=== PATIENT | male | born 1950 | race Caucasian/White ===

== ENCOUNTER → 2018-08-08 11:00 | Outpatient (CLI) | payer MEDICARE, OTHER, SELFPAY ==
--- NOTE | 2018-08-08 | DI.US.S_ITS ---
PROCEDURE: US ABD AORTA ANEURYSM SCREEN INDICATIONS: SCREENING TECHNIQUE: Real time scanning was performed of the aorta and iliac arteries, with image documentation. COMPARISON: None. FINDINGS: Aorta: Proximal aorta is obscured by overlying bowel gas. Mid-aorta measures 1.6 cm. Distal aortic diameter is 1.5 cm. Iliac arteries: Right common iliac artery measures 0.9 cm. Left common iliac artery measures 0.9 cm. IMPRESSION: No abdominal aortic aneurysm identified but the proximal abdominal aorta is obscured by overlying bowel gas. Dictated by: Ayaka Riley M.D. on 08/08/2018 at 13:09 Approved by: Ayaka Riley M.D. on 08/08/2018 at 13:10
== END ==
PROVIDERS: Family Provider Internal Medicine; PCP Internal Medicine; Visit Provider Internal Medicine
DX: Z13.6 Encounter for screening for cardiovascular disorders (principal)
CPT/HCPCS: 76706

== ENCOUNTER → 2020-12-03 11:16 | Outpatient (CLI) | payer MEDICARE, OTHER, SELFPAY ==
--- NOTE | 2020-12-03 | DI.RAD.S_ITS ---
PROCEDURE: XR HIP W PEL IF DONE BILAT 2V INDICATIONS: Primary generalized (osteo)arthritis TECHNIQUE: AP pelvis with lateral view(s) of the both hip(s). COMPARISON: , CT, ABDOMEN/PELVIS WITH CONTRAST, 05/05/2011, 10:25. FINDINGS: Bones: No fractures or dislocations. Prominence at the bilateral femoral necks are concerning for cam lesions. Moderate bilateral hip DJD. Mild heterotopic calcification adjacent to the right hip which is new compared to CT from 28/03. Pelvic ring appears intact. No suspicious bony lesions. Degenerative change in the lumbar spine. Soft tissues: The visualized bowel gas pattern is normal. No suspicious soft tissue calcifications. Vascular calcifications. IMPRESSION: Moderate bilateral hip DJD. Concern for bilateral femoral neck cam lesions. This could be seen in acetabular impingement syndrome. Dictated by: Armani Alvarado M.D. on 12/03/2020 at 12:28 Approved by: Armani Alvarado M.D. on 12/03/2020 at 12:32
== END ==
PROVIDERS: Family Provider Internal Medicine; PCP Internal Medicine; Referring Provider Internal Medicine; Visit Provider Internal Medicine
DX: M16.0 Bilateral primary osteoarthritis of hip (principal)
CPT/HCPCS: 73521

== ENCOUNTER → 2021-01-29 14:38 | Outpatient (CLI) | payer MEDICARE, OTHER, SELFPAY ==
--- NOTE | 2021-01-29 | DI.RAD.S_ITS ---
PROCEDURE: XR CHEST 2V INDICATIONS: chest pain TECHNIQUE: 2 views of the chest were acquired. COMPARISON: [facility], , CHEST 2 VIEW, 10/09/2008, 16:57. FINDINGS: Surgical changes and devices: Dual chamber left cardiac pacer present and in expected position. Lungs and pleura: 3.3 cm rounded masslike opacity seen on the frontal view projected over the mid left lung just inferior to the level of the pulse generator. No pleural effusions or pneumothorax. Mediastinum: Mediastinal contours are normal. Heart size is normal. Bones and chest wall: No suspicious bony abnormalities. Soft tissues appear unremarkable. IMPRESSION: Focal airspace opacity within the mid left lung with masslike appearance. Chest CT scan is recommended for further assessment to exclude underlying neoplasm. Comment: Referring clinician's office will be called by our office with significant results requiring follow-up. This was set up at the time of final review, on 01/29/2021 at 1727 hours Dictated by: Aleksander Garcias [facility] Interpreted: Kendall Melendrez MD on 01/29/2021 at 14:55 Transcribed by: OFELIA on 01/29/2021 at 14:57 Approved by: Kendall Melendrez M.D. on 01/29/2021 at 17:27
== END ==
PROVIDERS: Family Provider Internal Medicine; PCP Internal Medicine; Referring Provider Internal Medicine; Visit Provider Internal Medicine
DX: R07.89 Other chest pain (principal)
CPT/HCPCS: 71046

== ENCOUNTER → 2021-02-10 14:25 | Outpatient (CLI) | payer MEDICARE, OTHER, SELFPAY ==
--- NOTE | 2021-02-10 14:32 | DI.CT.S_ITS ---
PROCEDURE: CT CHEST W CON INDICATIONS: LUNG MASS TECHNIQUE: After the administration of intravenous contrast, 5 mm thick sections acquired from the pulmonary apices to the posterior costophrenic angles. 1 mm axial lung, 5 mm thick coronal and sagittal reformats and 7 mm axial MIP were acquired. For radiation dose reduction, the following was used: automated exposure control, adjustment of mA and/or kV according to patient size. COMPARISON: [facility], CR, XR CHEST 2V, 01/29/2021, 14:40. FINDINGS: Image quality: Excellent. Lungs and pleura: A solid mildly spiculated mass is seen in the superior segment of the left lower lobe abutting the major fissure in the pleura, measuring 3.2 x 2.3 cm on axial images by 2.4 cm craniocaudal (134/3, 32/6). Two small 3-4 mm nodules are seen in the superior segment of the left lower lobe more superiorly (121/3). A 3 mm calcified granuloma is seen at the left lung base (267/3). No acute air space opacities. No pleural effusions or pneumothorax. Central and peripheral airways are patent and normal in caliber. Mediastinum: In AP window lymph node measures 2.1 cm in short axis diameter (28/2). No significantly enlarged contralateral mediastinal lymph nodes. Heart size is normal. No pericardial effusion. Coronary artery calcifications are present. Thoracic aorta and central pulmonary arteries are normal in size. Esophagus is normal in caliber. No hiatal hernia. Bones and chest wall: No axillary or supraclavicular adenopathy by size criteria. A cardiac pacemaker is seen with pulse generator in the left chest. No suspicious bony lesions. Degenerative changes are seen in the spine. No vertebral body compression fractures. A 1.1 x 0.8 cm hypoattenuating nodule is seen in the lower right thyroid lobe/isthmus. Abdomen: Visualized upper abdominal solid organs appear normal. Upper abdominal bowel loops are normal in caliber. IMPRESSION: 1. Left lower lobe spiculated pulmonary mass measuring 3.2 x 2.3 cm corresponds to the opacity on chest radiographs 01/29/2021, suspicious for a primary pulmonary malignancy. This lesion would likely be amenable to percutaneous biopsy if indicated clinically. 2. Enlarged mediastinal AP window lymph node is suspicious for jose antonio metastatic disease. No contralateral lymphadenopathy. 3. Two small 3-4 mm nodules are also seen in the superior segment of the left lower lobe that may represent a satellite lesions or separate small nonspecific pulmonary nodules. 4. Hypoattenuating 1.1 cm nodule in the lower right thyroid. Recommend thyroid ultrasound for further evaluation. Dictated by: Sina Aquino M.D. on 02/10/2021 at 16:18 Approved by: Sina Aquino M.D. on 02/10/2021 at 16:31
--- NOTE | 2021-02-27 | PATH_ITS ---
[facility] Accession Number: [id number] . 01 Material submitted: . lung - LUNG . 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 MRV 03/05/2021 1613 Local . 02 Comment: As part of routine dairy quality assurance officer, Dr. Darnell has reviewed this case and agrees with the diagnosis of small cell carcinoma. The preliminary findings of malignancy, favor small cell carcinoma, were reported to Dr. Massey via biomedical engineering internship Valerie by Dr. Hope on 03/03/2021 at 4:00 p.m. . 02 Electronically signed: . Jeet Hope MD, PhD, Pathologist NPI- [id number] . 01 Gross description: . Received in formalin, labeled with the patient's name and lung, are four brice-castro soft tissue cores; 1.3-1.7 cm in length, 0.1 cm in diameter; entirely submitted. . SUMMARY OF SECTIONS: A1-A2: Two cores each. ([id number]) /[facility] 03/01/2021 1239 Local . 02 Microscopic: . Sections are of fibrotic lung parenchyma infiltrated by a proliferation of epithelioid cells in an irregular nested growth pattern. The neoplastic cells have scant cytoplasm and prominent powdery chromatin. In order to further classify the neoplastic cells, a panel of immunohistochemical stains is performed (each with an appropriately positive control). The neoplastic cells are positive for GIGI (pancytokeratin), TTF1 (variable), napsin (rare), chromogranin (variable) and synaptophysin immunoreactivity. The neoplastic cells are negative for p40 or cytokeratin 5/6 immunoreactivity, excluding squamous neoplasm. The overall morphology and immunoprofile are consistent with a small cell neuroendocrine carcinoma. . * This test was developed and its performance characteristics determined by [facility]. It has not been cleared or approved by the U.S. Food and Drug Administration. The FDA has determined that such clearance or approval is not necessary. This test is used for clinical purposes. It should not be regarded as investigational or for research. . 02 Pathologist provided ICD-10: C34.32 . 02 CPT . 936380, Z12393, E43805 Performed at: 01 [facility] [address] [address], [place], [place] [id number] MD Jam Love MD Phone: [phone] Performed at: 02 [facility] [address] [place], [place] [id number] MD Kiah Darnell MD Phone: [phone]
== END ==
PROVIDERS: Family Provider Internal Medicine; PCP Internal Medicine; Referring Provider Internal Medicine; Visit Provider Internal Medicine
DX: R91.8 Other nonspecific abnormal finding of lung field (principal); R59.0 Localized enlarged lymph nodes; E04.1 Nontoxic single thyroid nodule; Z95.0 Presence of cardiac pacemaker
CPT/HCPCS: 71260; Q9967

== ENCOUNTER → 2021-02-27 06:47 | Outpatient (CLI) | payer MEDICARE, OTHER, SELFPAY ==
[2021-02-27] VITALS (16 sets, daily range): BP systolic 141–171; BP diastolic 68–87; PULSE 65–84; RESP 11–22; TEMP 36.2–36.3; O2SAT 95–99; BMI 27.3
--- NOTE | 2021-02-27 | DI.RAD.S_ITS ---
PROCEDURE: XR CHEST 1V INDICATIONS: POST OP LUNG BIOPSY TECHNIQUE: One view of the chest was acquired. COMPARISON: [facility], CR, XR CHEST 2V, 01/29/2021, 14:40. FINDINGS: Surgical changes and devices: Left-sided cardiac pacer device is in place. Lungs and pleura: Lungs are clear. No pleural effusions. Stable 3.0 cm left mid lung zone mass. Very small left apical pneumothorax. Mediastinum: Mediastinal contours appear normal. Heart size is normal. Bones and chest wall: No suspicious bony lesions. Overlying soft tissues appear unremarkable. IMPRESSION: Very small left apical pneumothorax status post lung biopsy. Recommend short interval follow-up chest radiograph in approximately 2 hours. Stable appearance of left mid lung zone mass. Dictated by: Blanco Gutierrez M.D. on 02/27/2021 at 9:25 Approved by: Blanco Gutierrez M.D. on 02/27/2021 at 9:28
[2021-02-27 07:32] LABS: Add Manual Diff / Slide Review NO; Basophils Absolute Auto 100 /uL (0-100); Basophils Percent Auto 0.7 % (0-2); Eosinophils Absolute Auto 100 /uL (0-450); Eosinophils Percent Auto 1.7 % (2-4); Lymphocytes Absolute Auto 3100 /uL (1100-4500); Lymphocytes Percent Auto 36.1 % (25-40); Mean Corpuscular HGB Conc 34.3 % (30-36); Mean Corpuscular Hemoglobin 32.6 PG (26-34); Mean Corpuscular Volume 95.1 fL (80-100); Monocytes Absolute Auto 800 /uL (0-900); Monocytes Percent Auto 9.7 % (3-14); Neutrophils Absolute Auto 4400 /uL (1500-7000); Neutrophils Percent Auto 51.8 % (50-75); Platelet Count 281 X10^3/uL (150-400); Red Blood Cell Count 4.31 X10^6/uL (4.5-5.9); Red Cell Distribution Width 13.8 % (11.6-14.8); White Blood Cell Count 8.4 X10^3/uL (4.5-11.0)
[2021-02-27 07:41] LABS: INR 0.9 (0.9-1.3); Prothrombin Time 10.3 SECONDS (10.1-12.7)
[2021-02-27 07:46] LABS: COVID19 -Nasal RAPID Negative (Negative)
[2021-02-27] MEDS: fentaNYL 100 MCG/2 ML INJ 50 MCG IV (08:40)
[2021-02-27] MEDS: MIDAZOLAM 5 MG/5 ML VIAL 2 MG IV (08:42)
--- NOTE | 2021-02-27 09:30 | DI.CT.S_ITS ---
PROCEDURE: CT BIOPSY LUNG LT Sedation analgesia for approximately 45 minutes. INDICATIONS: nonspecific abnormal finding of lung field LEFT TECHNIQUE: The indications, alternatives, benefits, risks, and possible complications of the procedure were communicated to the patient. Informed written consent from the patient was obtained and placed in the chart. Continuous EKG and hemodynamic monitoring was started by trained personnel. The patient was brought to the CT suite and teacher education instructor spiral CT imaging was performed with localization grid. The appropriate site for percutaneous access to the biopsy target was marked, was prepped and draped sterilely, and was infused with local anaesthesia. Under CT guidance, a core biopsy trocar and needle set was advanced to the biopsy target, and specimen(s) were obtained. The trocar and needle were then removed, and the patient was sent for post-procedure monitoring. COMPARISON: None. FINDINGS: Biopsy site: Posterior left lower lobe. Needle: 20 gauge biopsy needle with introducer trocar. Number of passes: 4 Medications: 1% lidocaine for local anaesthesia. IV Fentanyl and Versed for conscious sedation for approximately 45 minutes (see nursing record). Complications: Small posterior left pneumothorax noted on the post biopsy scan.. IMPRESSION: Successful CT-guided biopsy of left posterior left lower lobe pulmonary mass. Small left pneumothorax present on post biopsy scan. Patient is asymptomatic. Patient will be sent to PACU for monitoring. Dictated by: Blanco Gutierrez M.D. on 02/27/2021 at 16:53 Approved by: Blanco Gutierrez M.D. on 02/27/2021 at 16:58
[2021-02-27] MEDS: OXYCODONE IR 5 MG TABLET PO (09:45)
--- NOTE | 2021-02-27 12:30 | DI.RAD.S_ITS ---
PROCEDURE: XR CHEST 1V INDICATIONS: 3 HOUR FILM POST LUNG BIOPSY TECHNIQUE: One view of the chest was acquired. COMPARISON: [facility], CR, XR CHEST 1V, 02/27/2021, 9:14. FINDINGS: Surgical changes and devices: left-sided cardiac pacer device is in place. Lungs and pleura: Stable to slight interval decrease in size of very small left apical pneumothorax. Stable appearance of left mid lung zone pulmonary mass. Remainder of the lungs appear clear. No substantial pleural effusion Mediastinum: Mediastinal contours appear normal. Heart size is normal. Bones and chest wall: No suspicious bony lesions. Overlying soft tissues appear unremarkable. IMPRESSION: Stable to slight decrease in size of very small left apical pneumothorax status post CT-guided left lung mass biopsy. Otherwise, no acute cardiopulmonary abnormalities. Stable appearance of left mid lung pulmonary mass. Dictated by: Blanco Gutierrez M.D. on 02/27/2021 at 12:46 Approved by: Blanco Gutierrez M.D. on 02/27/2021 at 12:51
== END ==
PROVIDERS: Family Provider Internal Medicine; PCP Internal Medicine; Referring Provider Internal Medicine; Visit Provider Internal Medicine
PROC: BB24ZZZ Computerized Tomography (CT Scan) of Bilateral Lungs (ICD-10-PCS; CPT 32408; principal; 2021-02-27 08:00)
DX: R91.8 Other nonspecific abnormal finding of lung field (principal); Z20.822 Contact with and (suspected) exposure to COVID-19; J95.811 Postprocedural pneumothorax
CPT/HCPCS: 32408; 36415; 71045; 85025; 85610; 87635; J2250; J3010

== ENCOUNTER → 2021-03-20 08:28 | Outpatient (CLI) | payer MEDICARE, OTHER, SELFPAY ==
[2021-03-20 20:52] LABS: COVID19 - ORCAS (NP or Nasal) Negative (Negative)
== END ==
PROVIDERS: Family Provider Internal Medicine; PCP Internal Medicine; Visit Provider Family Medicine
DX: Z20.822 Contact with and (suspected) exposure to COVID-19 (principal)
CPT/HCPCS: C9803; U0003

== ENCOUNTER → 2021-04-06 13:08 | Outpatient (CLI) | payer MEDICARE, OTHER, SELFPAY ==
[2021-04-06 18:57] LABS: Hematocrit 32.6 % (41-53); Hemoglobin 11.2 g/dL (13.5-17.5); Mean Corpuscular HGB Conc 34.4 % (30-36); Mean Corpuscular Hemoglobin 31.8 PG (26-34); Mean Corpuscular Volume 92.5 fL (80-100); Platelet Count 168 X10^3/uL (150-400); Red Blood Cell Count 3.53 X10^6/uL (4.5-5.9); Red Cell Distribution Width 12.7 % (11.6-14.8); White Blood Cell Count 7.5 X10^3/uL (4.5-11.0)
[2021-04-06 19:00] LABS: Add Manual Diff / Slide Review YES
[2021-04-06 19:08] LABS: Alanine Aminotransferase 19 IU/L (<50); Albumin 3.5 g/dL (3.5-5.0); Albumin Globulin Ratio 1.3 (1.0-2.8); Alkaline Phosphatase 64 U/L (38-126); Aspartate Aminotransferase 22 IU/L (17-59); BUN Creatinine Ratio 22.2 (6-22); Bilirubin Total 0.6 mg/dL (0.2-1.3); Blood Urea Nitrogen 12 mg/dL (9-20); Calcium 9.2 mg/dL (8.4-10.2); Carbon Dioxide 29 mmol/L (22-32); Chloride 93 mmol/L (98-107); Estimated Glomerular Filt Rate > 60.0 mL/min (>60); Globulin 2.8 g/dL (1.7-4.1); Glucose 291 mg/dL (80-110); HEMOLYSIS < 15 (0-50); Potassium 4.6 mmol/L (3.4-5.1); Sodium 131 mmol/L (137-145); Total Protein 6.3 g/dL (6.3-8.2)
[2021-04-06 19:25] LABS: Neutrophils Absolute Manual 5925 /uL (3000-5900); Total Cells Counted 100
[2021-04-06 19:26] LABS: RBC Morphology Normal Morphology
== END ==
PROVIDERS: Family Provider Internal Medicine; PCP Internal Medicine; Visit Provider Internal Medicine Hematology & Oncology
DX: C34.32 Malignant neoplasm of lower lobe, left bronchus or lung (principal)
CPT/HCPCS: 80053; 85007; 85025

== ENCOUNTER 2021-06-20 15:24 | Inpatient (IN) | payer MEDICARE, OTHER, SELFPAY ==
[2021-06-20] VITALS (7 sets, daily range): BP systolic 142–169; BP diastolic 56–77; PULSE 66–83; RESP 14–20; TEMP 35.8–36.3; O2SAT 96–100; BMI 25.9
[2021-06-20 16:49] LABS: Bilirubin Urine UA NEGATIVE (NEGATIVE); Color Urine UA YELLOW; Glucose Urine UA TRACE g/dL (Negative); Ketones Urine UA NEGATIVE (NEGATIVE); Leukocyte Esterase Urine UA 2+ (NEGATIVE); Nitrite Urine UA NEGATIVE (Negative); Occult Blood Urine UA 3+ (Negative); Protein Urine UA 1+ (Negative); Specific Gravity Urine UA 1.015 (1.000-1.035); Urobilinogen Urine UA 0.2 E.U./dL (0.2); pH Urine UA 7.5 (4.5-8.0)
[2021-06-20 16:55] LABS: Appearance Urine UA Turbid
[2021-06-20 17:04] LABS: Bacteria Urine Many (>30); Culture Indicated Urine Specimen Cultured; RBC Urine >100/HPF (0-5/HPF); WBC Urine >100/HPF (0-5/HPF)
[2021-06-20 18:15] LABS: Hematocrit 26.2 % (41-53); Hemoglobin 9.1 g/dL (13.5-17.5); Mean Corpuscular HGB Conc 34.6 % (30-36); Mean Corpuscular Hemoglobin 33.5 PG (26-34); Mean Corpuscular Volume 96.9 fL (80-100); Platelet Count 132 X10^3/uL (150-400); White Blood Cell Count 26.1 X10^3/uL (4.5-11.0)
[2021-06-20 18:17] LABS: Add Manual Diff / Slide Review YES
[2021-06-20] MEDS: ONDANSETRON 4 MG ODT PO (18:17)
--- NOTE | 2021-06-20 18:29 | PC.NURSE ---
Per provider can take home pain meds related to current cancer.
[2021-06-20 18:31] LABS: Alanine Aminotransferase 19 IU/L (<50); Albumin 4.7 g/dL (3.5-5.0); Albumin Globulin Ratio 1.3 (1.0-2.8); Alkaline Phosphatase 94 U/L (38-126); Aspartate Aminotransferase 28 IU/L (17-59); BUN Creatinine Ratio 19.2 (6-22); Bilirubin Total 0.4 mg/dL (0.2-1.3); Blood Urea Nitrogen 15 mg/dL (9-20); Calcium 10.1 mg/dL (8.4-10.2); Carbon Dioxide 25 mmol/L (22-32); Chloride 93 mmol/L (98-107); Estimated Glomerular Filt Rate > 60.0 mL/min (>60); Globulin 3.6 g/dL (1.7-4.1); Glucose 186 mg/dL (80-110); HEMOLYSIS < 15 (0-50); Lactate (Lactic Acid) 3.4 mmol/L (0.7-2.1); Lipase 48 U/L (23-300); Sodium 126 mmol/L (137-145); Total Protein 8.3 g/dL (6.3-8.2)
[2021-06-20 18:35] LABS: Potassium 5.7 mmol/L (3.4-5.1)
[2021-06-20 18:47] LABS: Procalcitonin 0.86 ng/mL (<0.5)
--- NOTE | 2021-06-20 18:49 | DI.RAD.S_ITS ---
PROCEDURE: XR CHEST 1V INDICATIONS: Flu like symptoms TECHNIQUE: One view of the chest was acquired. COMPARISON: [facility], CR, XR CHEST 1V, 02/27/2021, 12:09. FINDINGS: Surgical changes and devices: Dual lead left-sided pacemaker. Right subclavian MediPort. Lungs and pleura: Rounded left mid lung opacity, decreased in size and density compared to the prior study. No acute consolidations, pleural effusion, or pneumothorax. Mediastinum: Mediastinal contours appear normal. Heart size is normal. Bones and chest wall: No suspicious bony lesions. Overlying soft tissues appear unremarkable. IMPRESSION: 1. No acute cardiopulmonary disease. 2. Decreased size and density of left lung mass. Dictated by: Eli Costello M.D. on 06/20/2021 at 20:13 Approved by: Eli Costello M.D. on 06/20/2021 at 20:14
[2021-06-20] MEDS: SODIUM CHLORIDE 0.9% 1,000 ML 1000 ML IV (18:53)
[2021-06-20] MEDS: cefTRIAXone 1,000 MG in SODIUM CHLORIDE 0.9% 100 ML 200 ML IV ×2 (18:53→21:57)
[2021-06-20 18:54] LABS: Neutrophils Absolute Manual 23751 /uL (3000-5900); Total Cells Counted 100
[2021-06-20 18:55] LABS: Toxic Granulation Present
--- NOTE | 2021-06-20 19:06 | ED_ITS ---
HPI - General Adult General Chief complaint: Urogenital-Male Stated complaint: pain, UTI, unable to urinate, has catheter. Time Seen by Provider: 06/20/21 18:19 Source: patient and family Mode of arrival: Wheelchair History of Present Illness HPI narrative: Patient is a 70-year-old male. History of lung cancer. Is currently undergoing chemotherapy. His last round of chemotherapy was approximately 2 weeks ago. He does have an indwelling Cortez catheter for multiple reasons to include urinary frequency and retention. He has had it in for the past several months. This morning he stated that he had the inability to urinate and his catheter was not draining. Having quite a bit of discomfort because of this. He denies chest pain shortness of breath. No fevers. Related Data Home Medications Medication Instructions Recorded Confirmed glimepiride 2 mg PO BID 02/27/21 06/20/21 lisinopril 40 mg PO DAILY 02/27/21 06/20/21 metformin 1,000 mg PO BID 02/27/21 06/20/21 omeprazole 40 mg PO DAILY 02/27/21 06/20/21 tamsulosin 0.4 mg PO DAILY 02/27/21 06/20/21 ibuprofen 200 mg-diphenhydramine 3 cap PO BEDTIME 06/20/21 06/20/21 HCl 25 mg capsule (Ibuprofen PM) magnesium oxide 400 mg PO BID 06/20/21 06/20/21 metoprolol tartrate 25 mg tablet 12.5 mg PO BID 06/20/21 06/20/21 nitroglycerin 0.4 mg sublingual 0.4 mg SUBLINGUAL Q5M PRN 06/20/21 06/20/21 tablet ondansetron 8 mg disintegrating 8 mg PO Q8H PRN 06/20/21 06/20/21 tablet oxycodone 10 mg tablet 10 mg PO Q8H PRN 06/20/21 06/20/21 sennosides 8.6 mg tablet (senna) 8.6 mg PO BID 06/20/21 06/20/21 zonisamide 100 mg capsule 200 mg PO DAILY 06/20/21 06/20/21 Allergies Allergy/AdvReac Type Severity Reaction Status Date / Time No Known Drug Allergies Allergy Verified 06/20/21 15:55 Review of Systems Review of Systems ROS Unobtainable: All systems reviewed & are unremarkable except as noted in HPI and below Constitutional Constitutional: Reports fatigue and Denies fever(s) Cardiovascular Cardiovascular: Reports system reviewed and no additional complaints, except as documented Respiratory Respiratory: Reports system reviewed and no additional complaints, except as documented Gastrointestinal Gastrointestinal: Reports system reviewed and no additional complaints, except as documented Genitourinary Genitourinary: Reports system reviewed and no additional complaints, except as documented and Reports as per HPI Musculoskeletal Musculoskeletal: Reports system reviewed and no additional complaints, except as documented Integumentary/Breasts Skin/Breast: Reports system reviewed and no additional complaints, except as documented Endocrine Endocrine: Reports fatigue Hematologic/Lymphatic On Anticoagulants: No Patient History Medical History Alcohol abuse BPH (benign prostatic hyperplasia) Chest pain Complete heart block Diabetes mellitus Essential hypertension Rheumatoid arthritis Rosacea Spinal stenosis Social History household members: spouse Smoking Status: Current every day smoker alcohol intake: current Smoking Status: Current every day smoker alcohol intake frequency: 0-2 drinks per day Substance Use Type: marijuana Exam Initial Vital Signs Initial Vital Signs: Vital Signs Temperature 96.4 F L 06/20/21 15:56 Pulse Rate 66 06/20/21 15:56 Respiratory Rate 14 06/20/21 15:56 Blood Pressure 169/77 H 06/20/21 15:56 Pulse Oximetry 100 06/20/21 15:56 Const General: cooperative Limitations: mental status not altered HENMT Head: normal to inspection and normocephalic Eyes General: appearance normal, both eyes and all related structures Resp Effort & Inspection: normal respiratory effort Auscultation: clear to auscultation bilaterally Cardio Rate: regular rate Rhythm: regular rhythm GI Inspection: non-distended Palpation: soft and No tender Other: Cortez catheter in place Skin General: no rashes or lesions noted Neuro General: patient alert, patient awake and moves all extremities Cognition: normal cognition Speech: speech normal Extrem General: capillary refill normal Psych Appearance: grossly normal and well kempt Course Orders Ordered: ED Orders 06/20/21 17:58 Complete Blood Count AUTO DIFF Stat Comprehensive Metabolic Panel Stat Lactate (Lactic Acid) Stat Lipase Stat Procalcitonin Stat 06/20/21 18:25 Blood Culture Stat 06/20/21 18:47 EKG-12 Lead Stat 06/20/21 18:49 XR chest 1V Stat 06/20/21 18:59 COVID19 -Nasal swab/Pre-Proc Stat 06/20/21 21:10 Education, smoking cessation ONGOING 06/20/21 22:10 Potassium Stat 06/21/21 05:00 Basic Metabolic Panel Routine Complete Blood Count AUTO DIFF Routine Magnesium Routine Acetaminophen (Acetaminophen 325 Mg Tablet) 650 mg PO Q6HR PRN PRN Reason: Fever/Mild Pain (1-3) Dextrose (Dextrose 50 % In Water 25 Gm/50 Ml Syringe) 25 gm IV PRN PRN PRN Reason: Hypoglycemia Enoxaparin Sodium (Enoxaparin 40 Mg/0.4 Ml Syringe) 40 mg SUBCUT DAILY [facility] Ceftriaxone Sodium 1,000 mg/ (Sodium Chloride) 100 mls @ 200 mls/hr IV Q24H [facility] Last Infusion: 06/20/21 22:41 Dose: 0 mls/hr Documented by: Admin: 06/20/21 21:57 Dose: 200 mls/hr Documented by: CLAUDIO Insulin Human Lispro (Insulin Lispro 100 Unit/Ml 3ml Vial) 0 unit SUBCUT ACHS WOLF; Protocol Magnesium Oxide (Magnesium Oxide 400 Mg Tablet) 400 mg PO BID [facility] Metoprolol Tartrate (Metoprolol Ir 25 Mg Tablet) 12.5 mg PO BID [facility] Naloxone HCl (Naloxone 0.4 Mg/Ml Vial) 0.2 mg IV Q2MIN PRN PRN Reason: Opiate Reversal Nitroglycerin (Nitroglycerin 0.4 Mg Sl Tab) 0.4 mg SL Q5M PRN PRN Reason: Chest Pain Ondansetron HCl (Ondansetron 4 Mg Odt) 8 mg PO Q8H PRN PRN Reason: Nausea Oxycodone HCl (Oxycodone Ir 10 Mg Tablet) 10 mg PO Q8H PRN PRN Reason: Pain (Scale Score 4-6) Last Admin: 06/20/21 22:38 Dose: 10 mg Documented by: BK Pantoprazole Sodium (Pantoprazole Dr 40 Mg Tablet) 40 mg PO 0600 [facility] Sennosides (Sennosides 8.6 Mg Tablet) 8.6 mg PO BID [facility] Tamsulosin HCl (Tamsulosin 0.4 Mg Capsule) 0.4 mg PO DAILY [facility] Zonisamide (Zonisamide 100 Mg Capsule) 200 mg PO BEDTIME WOLF Last Admin: 06/20/21 22:50 Dose: 200 mg Documented by: CLAUDIO Discontinued Medications Ceftriaxone Sodium 1,000 mg/ (Sodium Chloride) 100 mls @ 200 mls/hr IV NOW ONE Stop: 06/20/21 18:43 Last Infusion: 06/20/21 19:37 Dose: 0 mls/hr Documented by: Admin: 06/20/21 18:53 Dose: 200 mls/hr Documented by: CORINA Sodium Chloride (Normal Saline 0.9%) 1,000 mls @ 1,000 mls/hr IV BOLUS ONE Stop: 06/20/21 19:50 Last Infusion: 06/20/21 20:29 Dose: 0 mls/hr Documented by: Admin: 06/20/21 18:53 Dose: 1,000 mls/hr Documented by: CORINA Sodium Chloride (Normal Saline 0.9%) 1,000 mls @ 125 mls/hr IV CONT WOLF Last Infusion: 06/20/21 21:17 Dose: 0 mls/hr Documented by: Admin: 06/20/21 20:45 Dose: 125 mls/hr Documented by: CORINA Magnesium Oxide (Magnesium Oxide 400 Mg Tablet) 400 mg PO NOW ONE Stop: 06/20/21 22:31 Last Admin: 06/20/21 22:37 Dose: 400 mg Documented by: BK Metoprolol Tartrate (Metoprolol Ir 25 Mg Tablet) 12.5 mg PO NOW ONE Stop: 06/20/21 22:30 Last Admin: 06/20/21 22:37 Dose: 12.5 mg Documented by: BK Ondansetron HCl (Ondansetron 4 Mg Odt) 4 mg PO NOW ONE Stop: 06/20/21 17:45 Last Admin: 06/20/21 18:17 Dose: 4 mg Documented by: CORINA Zonisamide (Zonisamide 100 Mg Capsule) 200 mg PO DAILY [facility] Vital Signs Vital signs: Vital Signs - 8 hr 06/20/21 18:00 06/20/21 18:01 06/20/21 18:30 Pulse Rate 78 76 66 Respiratory Rate 20 Blood Pressure 142/67 H Pulse Oximetry 98 96 99 Medical Decision Making Medical Records Medical records reviewed: Yes I reviewed the patient's medical records. Lab Data Lab results reviewed: Yes I reviewed the patient's lab results. Result diagrams: 06/20/21 17:58 06/20/21 22:10 Labs: Lab Results 06/20/21 06/20/21 06/20/21 Range/Units 16:15 17:58 17:58 WBC 26.1 H (4.5-11.0) X10^3/uL RBC 2.70 L (4.5-5.9) X10^6/uL Hgb 9.1 L (13.5-17.5) g/dL Hct 26.2 L (41-53) % MCV 96.9 (80-100) fL MCH 33.5 (26-34) PG MCHC 34.6 (30-36) % RDW 21.0 H (11.6-14.8) % Plt Count 132 L (150-400) X10^3/uL Neut % (Auto) Not Reportable Lymph % (Auto) Not Reportable [place] % (Auto) Not Reportable Eos % (Auto) Not Reportable Baso % (Auto) Not Reportable Lymph # (Auto) Not Reportable [place] # (Auto) Not Reportable Baso # (Auto) Not Reportable Total Counted 100 Seg Neutrophils % 86.0 H (38-70) % Band Neutrophils % 5.0 (3-7) % Lymphocytes % (Manual) 6.0 L (25-45) % Atypical Lymphs % 3.0 H ( - 0) % Monocytes % (Manual) 0.0 L (2-11) % Eosinophils % (Manual) 0.0 L (2-4) % Basophils % (Manual) 0.0 (0-1) % Neutrophils # (Manual) 67746 H (8921-4699) /uL Toxic Granulation Present H RBC Morphology Not Reportable Sodium 126 L (137-145) mmol/L Potassium 5.7 H (3.4-5.1) mmol/L Chloride 93 L (98-107) mmol/L Carbon Dioxide 25 (22-32) mmol/L BUN 15 (9-20) mg/dL Creatinine 0.78 (0.66-1.25) mg/dL Estimated GFR > 60.0 (>60) mL/min BUN/Creatinine Ratio 19.2 (6-22) Glucose 186 H (80-110) mg/dL Lactate (0.7-2.1) mmol/L Calcium 10.1 (8.4-10.2) mg/dL Total Bilirubin 0.4 (0.2-1.3) mg/dL AST 28 (17-59) IU/L ALT 19 (<50) IU/L Alkaline Phosphatase 94 (38-126) U/L Total Protein 8.3 H (6.3-8.2) g/dL Albumin 4.7 (3.5-5.0) g/dL Globulin 3.6 (1.7-4.1) g/dL Albumin/Globulin Ratio 1.3 (1.0-2.8) Lipase 48 (23-300) U/L Procalcitonin 0.86 H (<0.5) ng/mL Urine Color Yellow Urine Appearance Turbid Urine pH 7.5 (4.5-8.0) Ur Specific [place] 1.015 (1.000-1.035) Urine Protein 1+ H (Negative) Urine Glucose (UA) Trace H (Negative) g/dL Urine Ketones Negative (NEGATIVE) Urine Occult Blood 3+ H (Negative) Urine Nitrate Negative (Negative) Urine Bilirubin Negative (NEGATIVE) Urine Urobilinogen 0.2 (0.2) E.U./dL Ur Leukocyte Esterase 2+ H (NEGATIVE) Urine RBC >100/hpf H (0-5/HPF) Urine WBC >100/hpf H (0-5/HPF) Urine Bacteria Many (>30) H (None) Ur Culture Indicated? Specimen cultured SARS-CoV-2 (PCR) (Negative) 06/20/21 06/20/21 06/20/21 Range/Units 17:58 18:59 20:34 WBC (4.5-11.0) X10^3/uL RBC (4.5-5.9) X10^6/uL Hgb (13.5-17.5) g/dL Hct (41-53) % MCV (80-100) fL MCH (26-34) PG MCHC (30-36) % RDW (11.6-14.8) % Plt Count (150-400) X10^3/uL Neut % (Auto) Lymph % (Auto) [place] % (Auto) Eos % (Auto) Baso % (Auto) Lymph # (Auto) [place] # (Auto) Baso # (Auto) Total Counted Seg Neutrophils % (38-70) % Band Neutrophils % (3-7) % Lymphocytes % (Manual) (25-45) % Atypical Lymphs % ( - 0) % Monocytes % (Manual) (2-11) % Eosinophils % (Manual) (2-4) % Basophils % (Manual) (0-1) % Neutrophils # (Manual) (9240-4867) /uL Toxic Granulation RBC Morphology Sodium (137-145) mmol/L Potassium (3.4-5.1) mmol/L Chloride (98-107) mmol/L Carbon Dioxide (22-32) mmol/L BUN (9-20) mg/dL Creatinine (0.66-1.25) mg/dL Estimated GFR (>60) mL/min BUN/Creatinine Ratio (6-22) Glucose (80-110) mg/dL Lactate 3.4 H 1.1 (0.7-2.1) mmol/L Calcium (8.4-10.2) mg/dL Total Bilirubin (0.2-1.3) mg/dL AST (17-59) IU/L ALT (<50) IU/L Alkaline Phosphatase (38-126) U/L Total Protein (6.3-8.2) g/dL Albumin (3.5-5.0) g/dL Globulin (1.7-4.1) g/dL Albumin/Globulin Ratio (1.0-2.8) Lipase (23-300) U/L Procalcitonin (<0.5) ng/mL Urine Color Urine Appearance Urine pH (4.5-8.0) Ur Specific [place] (1.000-1.035) Urine Protein (Negative) Urine Glucose (UA) (Negative) g/dL Urine Ketones (NEGATIVE) Urine Occult Blood (Negative) Urine Nitrate (Negative) Urine Bilirubin (NEGATIVE) Urine Urobilinogen (0.2) E.U./dL Ur Leukocyte Esterase (NEGATIVE) Urine RBC (0-5/HPF) Urine WBC (0-5/HPF) Urine Bacteria (None) Ur Culture Indicated? SARS-CoV-2 (PCR) Negative (Negative) Imaging Data Chest x-ray: Radiologist's Impression: [address] [id number] XRay Report Signed Patient: Shad Street MR#: [id number] : 1950 Acct:[id number] Age/Sex: 70 / M Date of Service: 06/20/21 Loc: ED Accession Number: [id number] ?? Procedure: XR chest 1V Ordering Provider: Blu Aguilar D.O. PROCEDURE:? XR CHEST 1V ? INDICATIONS:? Flu like symptoms ? TECHNIQUE:? One view of the chest was acquired.? ? COMPARISON:? [facility], , XR CHEST 1V, 02/27/2021, 12:09. ? FINDINGS:? ? Surgical changes and devices:? Dual lead left-sided pacemaker.? Right subclavian MediPort. ? Lungs and pleura:? Rounded left mid lung opacity, decreased in size and density compared to the prior study.? No acute consolidations, pleural effusion, or pneumothorax. ? Mediastinum:? Mediastinal contours appear normal.? Heart size is normal.? ? Bones and chest wall:? No suspicious bony lesions.? Overlying soft tissues appear unremarkable.? ? IMPRESSION:? ? 1. No acute cardiopulmonary disease.? ? 2. Decreased size and density of left lung mass.? ? ? Dictated by: Eli Costello M.D. on 06/20/2021 at 20:13 ? ? Approved by: Eli Costello M.D. on 06/20/2021 at 20:14 ECG Data Attestation: I personally reviewed and interpreted this ECG as follows: Interpretation: Ventricular paced Rate is 70 MDM Narrative Medical decision making narrative: Patient has a leukocytosis, elevated lactate and urinalysis concerning for urinary tract infection. Blood cultures were obtained. Patient also h yponatremic and hyperkalemic. Antibiotics started. No prior urine cultures available for evaluation. Given his cancer history, concern for urinary tract infection, lab abnormalities patient does require admission the hospital for further evaluation and treatment. I did discuss this with the patient and the family in expressed understanding patient not hypotensive. 30 cc/kilogram of fluid not administered secondary to his electrolyte abnormalities and his lack of hypotension. His lactate did improve with fluids that were administered. Discussed the case with Dr. Fair with Internal Medicine who will admit for further evaluation treatment. Discharge Plan Departure Patient Disposition: Admitted As Inpatient Clinical Impression: Urinary tract infection, Acute hyperkalemia, Hyponatremia Admit Date/Time: 06/20/21 21:05 Admit Provider: Norman Fair
[2021-06-20 19:19] LABS: COVID19 -Nasal RAPID Negative (Negative)
[2021-06-20 20:08] LABS: Reflexed Lactate in 2 Hours Y
[2021-06-20] MEDS: SODIUM CHLORIDE 0.9% 1,000 ML 125 ML IV (20:45)
[2021-06-20 21:08] LABS: Lactate 2HR (Lactic Acid Rflx) 1.1 mmol/L (0.7-2.1)
[2021-06-20 22:36] LABS: HEMOLYSIS < 15 (0-50)
[2021-06-20 22:37] LABS: Potassium 5.2 mmol/L (3.4-5.1)
[2021-06-20] MEDS: MAGNESIUM OXIDE 400 MG TABLET PO (22:37)
[2021-06-20] MEDS: METOPROLOL IR 25 MG TABLET 12.5 MG PO (22:37)
[2021-06-20] MEDS: OXYCODONE IR 10 MG TABLET PO (22:38)
[2021-06-20] MEDS: ZONISAMIDE 100 MG CAPSULE 200 MG PO (22:50)
--- NOTE | 2021-06-20 22:52 | PM.HP.1 ---
History of Present Illness History of Present Illness Date Patient Seen: 06/20/21 Time Patient Seen: 22:00 Chief complaint: pain, UTI, unable to urinate, has catheter. Narrative: Mr. Street is a 70M with PMH lung cancer, BPH with chronic day, DM who presents with abdominal pain. He notes that he is supposed to have his catheter changed monthly, it was last changed approximately a month ago. Last night his day stopped draining, and he was unable to urinate. He developed abdominal pain and nausea. He had no fevers/chills. He is getting chemotherapy, last was approximately two weeks ago. In the ED workup was done, and vitals notable for hypertension. Labs notable for WBC 26.1, hgb 9.1, plts 132. Na 126, k 5.7, creatinine 0.78. Procal 0.86. Lactate 3.4, then 1.1. UA showed 2+ LE, >100 RBC, >100 WBC, many bacteria. Urine and blood cultures pending. Day catheter exchanged. Chest xray showed decreasing left lung mass. He was ordered for IV antibiotics and IV fluids and admitted for further treatment. Family history: no lung cancer in family history Patient History Medical History Alcohol abuse BPH (benign prostatic hyperplasia) Chest pain Complete heart block Diabetes mellitus Essential hypertension Rheumatoid arthritis Rosacea Spinal stenosis Family & Social History Social History: household members spouse Prior Living Arrangements House Safety & Behavioral: Feels Safe in Current Yes Environment Been Physically Hurt or No Threatened By a Person Suicidal Ideation Description None Suicide Plan Description No Plan Tobacco & Substance use: Tobacco type cigars Smoking Status Current every day smoker alcohol intake current alcohol intake frequency 0-2 drinks per day Substance Use Type marijuana Meds Home Medications and Allergies Home Medications Medication Instructions Recorded Confirmed Type glimepiride 2 mg PO BID 02/27/21 06/20/21 History lisinopril 40 mg PO DAILY 02/27/21 06/20/21 History metformin 1,000 mg PO BID 02/27/21 06/20/21 History omeprazole 40 mg PO DAILY 02/27/21 06/20/21 History tamsulosin 0.4 mg PO DAILY 02/27/21 06/20/21 History ibuprofen 200 mg-diphenhydramine 3 cap PO BEDTIME 06/20/21 06/20/21 History HCl 25 mg capsule (Ibuprofen PM) magnesium oxide 400 mg PO BID 06/20/21 06/20/21 History metoprolol tartrate 25 mg tablet 12.5 mg PO BID 06/20/21 06/20/21 History nitroglycerin 0.4 mg sublingual 0.4 mg SUBLINGUAL Q5M PRN 06/20/21 06/20/21 History tablet ondansetron 8 mg disintegrating 8 mg PO Q8H PRN 06/20/21 06/20/21 History tablet oxycodone 10 mg tablet 10 mg PO Q8H PRN 06/20/21 06/20/21 History sennosides 8.6 mg tablet (senna) 8.6 mg PO BID 06/20/21 06/20/21 History zonisamide 100 mg capsule 200 mg PO DAILY 06/20/21 06/20/21 History Allergies Allergy/AdvReac Type Severity Reaction Status Date / Time No Known Drug Allergies Allergy Verified 06/20/21 15:55 Review of Systems Review of Systems Narrative: 14 systems reviewed and negative aside from what is noted in HPI Exam Vital Signs (past 8 hours): - 06/20/21 18:00 06/20/21 18:01 06/20/21 18:30 Temperature Pulse Rate 78 76 66 Respiratory Rate 20 Blood Pressure 142/67 H Pulse Oximetry 98 96 99 06/20/21 21:14 Temperature 97.4 F L Pulse Rate 83 Respiratory Rate 18 Blood Pressure 148/56 H Pulse Oximetry 99 Oxygen Delivery Method Room Air Oxygen Flow Rate 20 Narrative Exam Narrative: GEN: no acute distress HEENT: moist mucous membranes, PERRL NECK: trachea midline, no JVD CHEST: port in place on chest, clean, no evidence of infection PULM: clear bilaterally, no wheezes, rhonchi, rales CV: regular rate and rhythm, no murmurs ABD: soft, nontender, nondistended, no organomegaly, normal bowel sounds EXT: warm and well perfused with no edema NEURO: awake, alert, no focal deficits PSYCH: pleasant, cooperative Objective Labs Result Diagrams: 06/20/21 17:58 06/20/21 22:10 Labs: Laboratory Results - last 24 hr 06/20/21 06/20/21 06/20/21 16:15 17:58 17:58 WBC 26.1 H RBC 2.70 L Hgb 9.1 L Hct 26.2 L MCV 96.9 MCH 33.5 MCHC 34.6 RDW 21.0 H Plt Count 132 L Neut % (Auto) Not Reportable Lymph % (Auto) Not Reportable [place] % (Auto) Not Reportable Eos % (Auto) Not Reportable Baso % (Auto) Not Reportable Lymph # (Auto) Not Reportable [place] # (Auto) Not Reportable Baso # (Auto) Not Reportable Total Counted 100 Seg Neutrophils % 86.0 H Band Neutrophils % 5.0 Lymphocytes % (Manual) 6.0 L Atypical Lymphs % 3.0 H Monocytes % (Manual) 0.0 L Eosinophils % (Manual) 0.0 L Basophils % (Manual) 0.0 Neutrophils # (Manual) 90707 H Toxic Granulation Present H RBC Morphology Not Reportable Sodium 126 L Potassium 5.7 H Chloride 93 L Carbon Dioxide 25 BUN 15 Creatinine 0.78 Estimated GFR > 60.0 BUN/Creatinine Ratio 19.2 Glucose 186 H Lactate Calcium 10.1 Total Bilirubin 0.4 AST 28 ALT 19 Alkaline Phosphatase 94 Total Protein 8.3 H Albumin 4.7 Globulin 3.6 Albumin/Globulin Ratio 1.3 Lipase 48 Procalcitonin 0.86 H Urine Color Yellow Urine Appearance Turbid Urine pH 7.5 Ur Specific [place] 1.015 Urine Protein 1+ H Urine Glucose (UA) Trace H Urine Ketones Negative Urine Occult Blood 3+ H Urine Nitrate Negative Urine Bilirubin Negative Urine Urobilinogen 0.2 Ur Leukocyte Esterase 2+ H Urine RBC >100/hpf H Urine WBC >100/hpf H Urine Bacteria Many (>30) H Ur Culture Indicated? Specimen cultured SARS-CoV-2 (PCR) 06/20/21 06/20/21 06/20/21 17:58 18:59 20:34 WBC RBC Hgb Hct MCV MCH MCHC RDW Plt Count Neut % (Auto) Lymph % (Auto) [place] % (Auto) Eos % (Auto) Baso % (Auto) Lymph # (Auto) [place] # (Auto) Baso # (Auto) Total Counted Seg Neutrophils % Band Neutrophils % Lymphocytes % (Manual) Atypical Lymphs % Monocytes % (Manual) Eosinophils % (Manual) Basophils % (Manual) Neutrophils # (Manual) Toxic Granulation RBC Morphology Sodium Potassium Chloride Carbon Dioxide BUN Creatinine Estimated GFR BUN/Creatinine Ratio Glucose Lactate 3.4 H 1.1 Calcium Total Bilirubin AST ALT Alkaline Phosphatase Total Protein Albumin Globulin Albumin/Globulin Ratio Lipase Procalcitonin Urine Color Urine Appearance Urine pH Ur Specific [place] Urine Protein Urine Glucose (UA) Urine Ketones Urine Occult Blood Urine Nitrate Urine Bilirubin Urine Urobilinogen Ur Leukocyte Esterase Urine RBC Urine WBC Urine Bacteria Ur Culture Indicated? SARS-CoV-2 (PCR) Negative 06/20/21 22:10 WBC RBC Hgb Hct MCV MCH MCHC RDW Plt Count Neut % (Auto) Lymph % (Auto) [place] % (Auto) Eos % (Auto) Baso % (Auto) Lymph # (Auto) [place] # (Auto) Baso # (Auto) Total Counted Seg Neutrophils % Band Neutrophils % Lymphocytes % (Manual) Atypical Lymphs % Monocytes % (Manual) Eosinophils % (Manual) Basophils % (Manual) Neutrophils # (Manual) Toxic Granulation RBC Morphology Sodium Potassium 5.2 H Chloride Carbon Dioxide BUN Creatinine Estimated GFR BUN/Creatinine Ratio Glucose Lactate Calcium Total Bilirubin AST ALT Alkaline Phosphatase Total Protein Albumin Globulin Albumin/Globulin Ratio Lipase Procalcitonin Urine Color Urine Appearance Urine pH Ur Specific [place] Urine Protein Urine Glucose (UA) Urine Ketones Urine Occult Blood Urine Nitrate Urine Bilirubin Urine Urobilinogen Ur Leukocyte Esterase Urine RBC Urine WBC Urine Bacteria Ur Culture Indicated? SARS-CoV-2 (PCR) Assessment & Plan Assessment & Plan narrative: Mr. Strete is a 70M with [facility] lung cancer and chronic day who presents with UTI secondary to malfunctioning day. 1. Acute UTI from malfunctioning urinary cathether -UTI secondary to malfunctioning cathether -catheter replaced in ED, now functioning well -UA positive, WBC of 26, procalcitonin elevated consistent with UTI -ordered for ceftriaxone -follow up urine and blood cultutres -continue IV ceftriaxone 2. BPH with chronic indwelling day -continue tamsulosin -day became obstructed -day replaced in ED and functioning well 3. Lung cancer, chronic -getting chemotherapy as an outpatient -follow up with oncologist once discharged 3. Type 2 Diabetes -hold oral diabetes medications -ordered insulin sliding scale 4. Hyponatremia, acute on chronic -etiology secondary to likely hypovolemia secondary to infection -continue IV fluids -recheck in AM 5. Hyperkalemia, acute -etiology secondary to obstructive urinary problem -improving with replacing day -recheck hyperkalemia in AM -currently no medications indicated to lower hyperkalemia 6. Thrombocytopenia, acute -etiology likely secondary to infection vs malignancy -no need for transfusion -trend daily 7. Anemia, acute on chronic -etiology likely secondary to malignancy -no evidence of bleeding -trend hemoglobin daily 8. Seizure disorder -continue zonisamide 9. Hypertension -hold antihypertensives for now given hyperkalemia CODE: Full Proxy: Gladys Street, I have utilized all available resources to reconcile the patient's home medications. Time Spent With Patient Critical Care time: I spent a total of [] minutes of critical care time on this patient's care today; this time is exclusive of procedural time. Quality VTE Deep Vein Thrombosis/Pulmonary Embolism Present on Admission: No MIPS - Admit I confirm the patient?s Advance Care Plan is present, Code status is documented, Surrogate decision maker is in patient?s record [If Yes, STOP here]: Yes
[2021-06-21] VITALS (8 sets, daily range): BP systolic 117–157; BP diastolic 49–68; PULSE 62–82; RESP 14–18; TEMP 36.3–36.8; O2SAT 94–99
[2021-06-21] MEDS: PANTOPRAZOLE DR 40 MG TABLET PO (06:06)
[2021-06-21] MEDS: ONDANSETRON 4 MG ODT 8 MG PO (06:12)
[2021-06-21] MEDS: OXYCODONE IR 10 MG TABLET PO ×2 (06:12→09:54)
[2021-06-21 06:34] LABS: Add Manual Diff / Slide Review NO; Basophils Absolute Auto 0 /uL (0-100); Basophils Percent Auto 0.2 % (0-2); Eosinophils Absolute Auto 0 /uL (0-450); Eosinophils Percent Auto 0.4 % (2-4); Hematocrit 23.1 % (41-53); Hemoglobin 8.1 g/dL (13.5-17.5); Lymphocytes Absolute Auto 3100 /uL (1100-4500); Lymphocytes Percent Auto 25.6 % (25-40); Mean Corpuscular Volume 97.1 fL (80-100); Monocytes Absolute Auto 1000 /uL (0-900); Monocytes Percent Auto 8.1 % (3-14); Neutrophils Absolute Auto 8000 /uL (1500-7000); Neutrophils Percent Auto 65.7 % (50-75); Platelet Count 133 X10^3/uL (150-400); Red Blood Cell Count 2.38 X10^6/uL (4.5-5.9); Red Cell Distribution Width 21.4 % (11.6-14.8); White Blood Cell Count 12.1 X10^3/uL (4.5-11.0)
[2021-06-21 06:43] LABS: BUN Creatinine Ratio 14.5 (6-22); Blood Urea Nitrogen 9 mg/dL (9-20); Calcium 9.4 mg/dL (8.4-10.2); Carbon Dioxide 26 mmol/L (22-32); Chloride 101 mmol/L (98-107); Estimated Glomerular Filt Rate > 60.0 mL/min (>60); Glucose 131 mg/dL (80-110); HEMOLYSIS < 15 (0-50); Magnesium 1.9 mg/dL (1.6-2.3); Potassium 4.3 mmol/L (3.4-5.1); Sodium 132 mmol/L (137-145)
[2021-06-21 08:10] LABS: Anisocytosis 2+; Hypochromasia 1+; Platelet Estimate Decreased on smear; Toxic Granulation Present
[2021-06-21] MEDS: MAGNESIUM OXIDE 400 MG TABLET PO ×2 (08:52→21:06)
[2021-06-21] MEDS: METOPROLOL IR 25 MG TABLET 12.5 MG PO ×2 (08:53→21:06)
[2021-06-21] MEDS: SENNOSIDES 8.6 MG TABLET PO ×2 (09:43→21:08)
[2021-06-21] MEDS: TAMSULOSIN 0.4 MG CAPSULE PO (09:43)
--- NOTE | 2021-06-21 11:02 | PC.NURSE ---
pt c/o increase pain in left chest tumor area 12/16, notified and orders rc'd. medicated with po pain meds and now pain down to a 07/16. SBA to br. Castaneda here to see pt.
--- NOTE | 2021-06-21 16:00 | CM.DANOTE ---
DCP/Assessment: Reviewed chart. Patient is 70yr old male admitted to [facility] with [facility]TI. PCP is Dr. Massey. Primary payor is 1)Medicare 2)[place]. Met with patient this afternoon explained CM/SW role. Patient very pleasant alert and oriented gentleman. Patient reports that he hopes to d/c home tomorrow. Patient resides on [facility] with his spouse of 53yrs and family. Patient currently being treated outpatient for lung CA. Patient reports ups and downs with diagnosis and treatment. Patient tries to stay as positive as he can. Patient excited or the summer months when he can relax outside at his residence. Patient denies priority boarding pass, patient reports that he already has one to go from CA treatments. Patient uses cane for ambulation but denies any other needs. P: Home when medically stable. Patient reports that his daughter will be picking him up and taking back to [facility] when stable. SIMA Discharge Planning/Care Management CM Discharge Assessment Start: 06/21/21 15:56 Freq: Status: Active Protocol: Document 06/21/21 15:56 [facility] (Rec: 06/21/21 16:00 [facility] [id number]) Discharge Planning Assessment Assigned Back [employer] Layup Line RACHELLE Ragsdale Contact Information [address] Street () ph# [phone] Advance Directives? Yes Advance Directives on File No History Provided By Patient,Medical Record Prior Living Arrangements House Household Members spouse Type of transporation used prior to Drives own vehicle admit Independent with ADL's Yes Is patient alert and oriented? Yes DME Already Rented / Owned Cane Barriers to Discharge No Discharge Plan Home Transportation Arrangement Family to provide transportation. Referrals Initiated None needed Review Status In Process Next Review Type Continued Stay Review
[2021-06-21] MEDS: MORPHINE ER 15 MG TABLET PO (16:44)
[2021-06-21] MEDS: INSULIN LISPRO 100 UNIT/ML 3ML VIAL SUBCUT ×2 (16:45→21:18)
--- NOTE | 2021-06-21 17:19 | P.PN_ITS ---
Subjective Subjective Date Patient Seen: 06/21/21 Time Patient Seen: 13:00 Interval history: Reports worsened chest pain, constant under his tumor which has been present for the last month or so. Oxycodone has been ineffective for him he states. Would like to try morphine again which had worked for him previously. He denies abdominal pain, fever, chills, palpitations. Day now with clear urine. Exam Vital Signs (past 8 hours): - 06/21/21 12:00 06/21/21 15:00 Temperature 97.5 F L 97.7 F Pulse Rate 62 75 Respiratory Rate 17 17 Blood Pressure 117/49 L 129/57 L Pulse Oximetry 99 98 Oxygen Delivery Method Room Air Oxygen Flow Rate 0 Narrative Exam Narrative: GEN: no acute distress, chronically ill appearing HEENT: moist mucous membranes, PERRL NECK: trachea midline, no JVD CHEST: port in place on chest, clean, no evidence of infection PULM: clear bilaterally, no wheezes, rhonchi, rales CV: regular rate and rhythm, no murmurs ABD: soft, nontender, nondistended, no organomegaly, normal bowel sounds EXT: warm and well perfused with no edema NEURO: awake, alert, no focal deficits PSYCH: pleasant, cooperative Objective Labs Result Diagrams: 06/21/21 06:20 06/21/21 06:20 Labs: Laboratory Results - last 24 hr 06/20/21 06/20/21 06/20/21 17:58 17:58 17:58 WBC 26.1 H RBC 2.70 L Hgb 9.1 L Hct 26.2 L MCV 96.9 MCH 33.5 MCHC 34.6 RDW 21.0 H Plt Count 132 L Neut % (Auto) Not Reportable Lymph % (Auto) Not Reportable [place] % (Auto) Not Reportable Eos % (Auto) Not Reportable Baso % (Auto) Not Reportable Neut # (Auto) Lymph # (Auto) Not Reportable [place] # (Auto) Not Reportable Eos # (Auto) Baso # (Auto) Not Reportable Total Counted 100 Seg Neutrophils % 86.0 H Band Neutrophils % 5.0 Lymphocytes % (Manual) 6.0 L Atypical Lymphs % 3.0 H Monocytes % (Manual) 0.0 L Eosinophils % (Manual) 0.0 L Basophils % (Manual) 0.0 Neutrophils # (Manual) 79412 H Toxic Granulation Present H Platelet Estimate RBC Morphology Not Reportable Hypochromasia Anisocytosis Sodium 126 L Potassium 5.7 H Chloride 93 L Carbon Dioxide 25 BUN 15 Creatinine 0.78 Estimated GFR > 60.0 BUN/Creatinine Ratio 19.2 Glucose 186 H Lactate 3.4 H Calcium 10.1 Magnesium Total Bilirubin 0.4 AST 28 ALT 19 Alkaline Phosphatase 94 Total Protein 8.3 H Albumin 4.7 Globulin 3.6 Albumin/Globulin Ratio 1.3 Lipase 48 Procalcitonin 0.86 H SARS-CoV-2 (PCR) 06/20/21 06/20/21 06/20/21 18:59 20:34 22:10 WBC RBC Hgb Hct MCV MCH MCHC RDW Plt Count Neut % (Auto) Lymph % (Auto) [place] % (Auto) Eos % (Auto) Baso % (Auto) Neut # (Auto) Lymph # (Auto) [place] # (Auto) Eos # (Auto) Baso # (Auto) Total Counted Seg Neutrophils % Band Neutrophils % Lymphocytes % (Manual) Atypical Lymphs % Monocytes % (Manual) Eosinophils % (Manual) Basophils % (Manual) Neutrophils # (Manual) Toxic Granulation Platelet Estimate RBC Morphology Hypochromasia Anisocytosis Sodium Potassium 5.2 H Chloride Carbon Dioxide BUN Creatinine Estimated GFR BUN/Creatinine Ratio Glucose Lactate 1.1 Calcium Magnesium Total Bilirubin AST ALT Alkaline Phosphatase Total Protein Albumin Globulin Albumin/Globulin Ratio Lipase Procalcitonin SARS-CoV-2 (PCR) Negative 06/21/21 06/21/21 06:20 06:20 WBC 12.1 H D RBC 2.38 L Hgb 8.1 L Hct 23.1 L MCV 97.1 MCH 34.0 MCHC 35.0 RDW 21.4 H Plt Count 133 L Neut % (Auto) 65.7 Lymph % (Auto) 25.6 [place] % (Auto) 8.1 Eos % (Auto) 0.4 L Baso % (Auto) 0.2 Neut # (Auto) 8000 H Lymph # (Auto) 3100 [place] # (Auto) 1000 H Eos # (Auto) 0 Baso # (Auto) 0 Total Counted Seg Neutrophils % Band Neutrophils % Lymphocytes % (Manual) Atypical Lymphs % Monocytes % (Manual) Eosinophils % (Manual) Basophils % (Manual) Neutrophils # (Manual) Toxic Granulation Present H Platelet Estimate Decreased on smear RBC Morphology See below Hypochromasia 1+ H Anisocytosis 2+ H Sodium 132 L Potassium 4.3 Chloride 101 Carbon Dioxide 26 BUN 9 Creatinine 0.62 L Estimated GFR > 60.0 BUN/Creatinine Ratio 14.5 Glucose 131 H Lactate Calcium 9.4 Magnesium 1.9 Total Bilirubin AST ALT Alkaline Phosphatase Total Protein Albumin Globulin Albumin/Globulin Ratio Lipase Procalcitonin SARS-CoV-2 (PCR) [facility] Medical History Alcohol abuse BPH (benign prostatic hyperplasia) Chest pain Complete heart block Diabetes mellitus Essential hypertension Rheumatoid arthritis Rosacea Spinal stenosis Social History household members: spouse Smoking Status: Current every day smoker alcohol intake: current Assessment & Plan Assessment & Plan narrative: Mr. Street is a 70M with H lung cancer and chronic day who presents with UTI secondary to malfunctioning day, with retention induced hyperkalemia. 1. Acute UTI from malfunctioning urinary cathether -UTI secondary to malfunctioning cathether -catheter replaced in ED, now functioning well -UA positive, WBC of 26, procalcitonin elevated consistent with UTI. WBC improved to 12 today. -continue ceftriaxone pending cultures. -follow up urine and blood cultutres, currently pending BC and urine cultures with GNB 2. BPH with chronic indwelling day -continue tamsulosin -day became obstructed -day replaced in ED and functioning well 3. Lung cancer, chronic -getting chemotherapy as an outpatient -follow up with oncologist once discharged -started morphine ER 15 mg q12 to see if improved pain control given cancer pain. 3. Type 2 Diabetes -hold oral diabetes medications -ordered insulin sliding scale 4. Hyponatremia, acute on chronic -etiology secondary to likely hypovolemia secondary to infection, possibly complicated by obstruction. -continue IV fluids -recheck now improved to 132. 5. Hyperkalemia, acute, improved -etiology secondary to obstructive urinary problem -improving with replacing day -no need for medical therapy on admission, now resolved. 6. Thrombocytopenia, acute -etiology likely secondary to infection vs malignancy -no need for transfusion -trend daily 7. Anemia, acute on chronic -etiology likely secondary to malignancy -no evidence of bleeding -trend hemoglobin daily 8. Seizure disorder -continue zonisamide 9. Hypertension -hold lisinopril given potassium levels, resume home metoprolol. Normotensive today. CODE: Full Proxy: Gladys Street, Time Spent With Patient Critical Care time: I spent a total of [] minutes of critical care time on this patient's care today; this time is exclusive of procedural time. Quality VTE Deep Vein Thrombosis/Pulmonary Embolism Present on Admission: No
[2021-06-21] MEDS: MORPHINE ER 15 MG TABLET 30 MG PO (21:07)
[2021-06-21] MEDS: cefTRIAXone 1,000 MG in SODIUM CHLORIDE 0.9% 100 ML 200 ML IV (21:08)
[2021-06-21] MEDS: ZONISAMIDE 100 MG CAPSULE 200 MG PO (21:08)
[2021-06-21] MEDS: SODIUM CHLORIDE 0.9% FLUSH 10 ML IV (21:08)
--- NOTE | 2021-06-21 22:20 | PC.NURSE ---
Patient is alert and oriented. Breath sounds CTA with RA sat of 99%. HRR. BP somewhat labile and is elevated at 155/68; did receive Metoprolol. Denies nausea. BT present and abdomen is soft; passing flatus. Chronic indwelling catheter is patent; urine is clear, light yellow. Is able to turn self in bed. Up to bathroom with walker and SBA. Stated pain was 3/10 in left chest earlier and received his scheduled Morphine ER (dose was increased) and now states he is pain free. CBG was 213. Fall risk score is high and bed alarm is activated.
[2021-06-22] MEDS: PANTOPRAZOLE DR 40 MG TABLET PO (06:00)
[2021-06-22 07:27] LABS: Add Manual Diff / Slide Review NO; Basophils Absolute Auto 100 /uL (0-100); Basophils Percent Auto 0.7 % (0-2); Eosinophils Absolute Auto 100 /uL (0-450); Hematocrit 24.1 % (41-53); Hemoglobin 8.6 g/dL (13.5-17.5); Lymphocytes Absolute Auto 3100 /uL (1100-4500); Lymphocytes Percent Auto 35.5 % (25-40); Mean Corpuscular HGB Conc 35.6 % (30-36); Mean Corpuscular Hemoglobin 34.7 PG (26-34); Mean Corpuscular Volume 97.5 fL (80-100); Monocytes Absolute Auto 800 /uL (0-900); Monocytes Percent Auto 9.5 % (3-14); Neutrophils Absolute Auto 4700 /uL (1500-7000); Neutrophils Percent Auto 53.3 % (50-75); Platelet Count 165 X10^3/uL (150-400); Red Blood Cell Count 2.48 X10^6/uL (4.5-5.9); Red Cell Distribution Width 21.3 % (11.6-14.8); White Blood Cell Count 8.7 X10^3/uL (4.5-11.0)
[2021-06-22] MEDS: ONDANSETRON 4 MG ODT 8 MG PO (07:35)
[2021-06-22 07:38] LABS: BUN Creatinine Ratio 12.3 (6-22); Blood Urea Nitrogen 7 mg/dL (9-20); Calcium 9.7 mg/dL (8.4-10.2); Carbon Dioxide 25 mmol/L (22-32); Chloride 101 mmol/L (98-107); Estimated Glomerular Filt Rate > 60.0 mL/min (>60); Glucose 161 mg/dL (80-110); HEMOLYSIS < 15 (0-50); Potassium 4.3 mmol/L (3.4-5.1); Sodium 132 mmol/L (137-145)
[2021-06-22 07:43] LABS: Anisocytosis 2+
[2021-06-22 07:50] VITALS: BP 134/56; PULSE 81; RESP 18; TEMP 36.3; O2SAT 98
[2021-06-22] MEDS: SENNOSIDES 8.6 MG TABLET PO (08:49)
[2021-06-22] MEDS: TAMSULOSIN 0.4 MG CAPSULE PO (08:49)
[2021-06-22] MEDS: MAGNESIUM OXIDE 400 MG TABLET PO (08:49)
[2021-06-22] MEDS: MORPHINE ER 15 MG TABLET 30 MG PO (08:49)
[2021-06-22] MEDS: METOPROLOL IR 25 MG TABLET 12.5 MG PO (08:50)
[2021-06-22 10:28] VITALS: O2SAT 98
--- NOTE | 2021-06-22 13:05 | PC.NURSE ---
IV removed intact for discharge. Discharge instructions and home care handouts reviewed with patient, he states understanding and has no further questions or concerns at this time. Prescriptions taken by his daughter to fill at local pharmacy for pick up attendant. Patient states his urine is improving, and has no further questions about day catheter home care. Patient reports his chronic pain has been much improved by his new morphine prescription for his cancer pain. Patient instructed to call his doctor with questions or concerns. Patient states he is seeing his oncologist and urologist next week. Escorted out via wheelchair with all his belongings to home with his daughter.
--- NOTE | 2021-06-22 16:34 | P.DS_ITS ---
History of Present Illness History of Present Illness Chief complaint: pain, UTI, unable to urinate, has catheter. Narrative: Mr. Street is a 70M with PMH lung cancer, BPH with chronic day, DM who presents with abdominal pain. He notes that he is supposed to have his catheter changed monthly, it was last changed approximately a month ago. Last night his day stopped draining, and he was unable to urinate. He developed abdominal pain and nausea. He had no fevers/chills. He is getting chemotherapy, last was approximately two weeks ago. In the ED workup was done, and vitals notable for hypertension. Labs notable for WBC 26.1, hgb 9.1, plts 132. Na 126, k 5.7, creatinine 0.78. Procal 0.86. Lactate 3.4, then 1.1. UA showed 2+ LE, >100 RBC, >100 WBC, many bacteria. Urine and blood cultures pending. Day catheter exchanged. Chest xray showed decreasing left lung mass. He was ordered for IV antibiotics and IV fluids and admitted for further treatment. Family history: no lung cancer in family history Discharge Providers Provider Date of admission: 06/21/21 11:25 Discharge Date: 06/22/21 Primary care physician: KEVIN Saenz Discharge provider: Norman Fair MD Summary Hospital Course Discharge Diagnosis: 1. Acute UTI from clogged day, chronic day for BPH 2. Chronic lung cancer on chemo 3. Type 2 Diabetes 4. Acute on chronic hyponatremia 5. Acute hyperkalemia 6. Acute thrombocytopenia 7. Acute on chronic anemia 8. Seizure disorder 9. Hypertension Hospital Course: Mr. Street was admitted due to an obstructed chronic day causing urinary retention and abdominal pain. He improved with changing day. He was found to have a UTI and was discharged with oral antibiotics to complete a 7 day course. He improved significantly. He did have cancer pain and because of this he was started on morphine with good improvement in pain and he was given a prescription for this Discharge time 33 minutess. Exam Vital Signs (past 8 hours): - 06/22/21 10:28 Pulse Oximetry 98 Oxygen Delivery Method Room Air Oxygen Flow Rate 0 Narrative Exam Narrative: GEN: no acute distress HEENT: moist mucous membranes, PERRL NECK: trachea midline, no JVD CHEST: port in place on chest, clean, no evidence of infection PULM: clear bilaterally, no wheezes, rhonchi, rales CV: regular rate and rhythm, no murmurs ABD: soft, nontender, nondistended, no organomegaly, normal bowel sounds EXT: warm and well perfused with no edema NEURO: awake, alert, no focal deficits PSYCH: pleasant, cooperative Objective Labs Result Diagrams: 06/22/21 07:10 06/22/21 07:10 Labs: Laboratory Results - last 24 hr 06/22/21 06/22/21 07:10 07:10 WBC 8.7 RBC 2.48 L Hgb 8.6 L Hct 24.1 L MCV 97.5 MCH 34.7 H MCHC 35.6 RDW 21.3 H Plt Count 165 Neut % (Auto) 53.3 Lymph % (Auto) 35.5 [place] % (Auto) 9.5 Eos % (Auto) 1.0 L Baso % (Auto) 0.7 Neut # (Auto) 4700 Lymph # (Auto) 3100 [place] # (Auto) 800 Eos # (Auto) 100 Baso # (Auto) 100 RBC Morphology Not Reportable Anisocytosis 2+ H Sodium 132 L Potassium 4.3 Chloride 101 Carbon Dioxide 25 BUN 7 L Creatinine 0.57 L Estimated GFR > 60.0 BUN/Creatinine Ratio 12.3 Glucose 161 H Calcium 9.7 PFSH Medical History Alcohol abuse BPH (benign prostatic hyperplasia) Chest pain Complete heart block Diabetes mellitus Essential hypertension Rheumatoid arthritis Rosacea Spinal stenosis Social History household members: spouse Smoking Status: Current every day smoker alcohol intake: current Discharge Plan Discharge Plan Patient Disposition: Home Provider Discharge Comment: Mr. Street came in to the hospital with a day blockage that cause a urinary infection. He improved with changing the day and with antibiotics. He will be given 5 more days of antibiotics. He was switched to morphine for his cancer pain as it provided good relief in the hospital. Discharge orders & Medications Prescriptions: New levofloxacin 750 mg tablet 750 mg PO DAILY Qty: 5 0RF morphine 30 mg tablet extended release 30 mg PO Q12H Qty: 30 0RF Continued glimepiride 4 mg 2 mg PO BID 0RF lisinopril 40 mg 40 mg PO DAILY 0RF metformin 500 mg 1,000 mg PO BID 0RF omeprazole 40 mg 40 mg PO DAILY 0RF tamsulosin 0.4 mg 0.4 mg PO DAILY 0RF sennosides [senna] 8.6 mg Tablet 8.6 mg PO BID 0RF ondansetron 8 mg Tablet,Disintegrating 8 mg PO Q8H PRN (Reason: Nausea) 0RF zonisamide 100 mg Capsule 200 mg PO DAILY 0RF nitroglycerin 0.4 mg Tablet, Sublingual 0.4 mg SUBLINGUAL Q5M PRN (Reason: Chest Pain) 0RF Rx Instructions: do not exceed 3 doses per episode metoprolol tartrate 25 mg Tablet 12.5 mg PO BID 0RF Ibuprofen PM 200-25 mg Capsule 3 cap PO BEDTIME 0RF magnesium oxide 400 mg magnesium Capsule 400 mg PO BID 0RF Discontinued oxycodone 10 mg Tablet 10 mg PO Q8H PRN (Reason: Pain (Scale Score 4-6)) 0RF Follow up/Referrals: Sarina Guo FNP-C [Primary Care Provider] - Visit Report/Discharge Packet Instructions: How to Care for Your Day Catheter -- Male, DI for Urinary Tract Infection (UTI), DI for Prescription Opioid Use, Morphine Discharge Data Primary Care Provider: Sarina Guo Quality VTE Deep Vein Thrombosis/Pulmonary Embolism Present on Admission: No
== END 2021-06-22 13:10 | disposition home or self-care (01) | DRG 699 ==
LOC: ED 19:07 → AC 06-21 11:31
PROVIDERS: Emergency Medicine; Internal Medicine; Admitting Provider Internal Medicine; Emergency Provider Emergency Medicine; Family Provider Internal Medicine; PCP Nurse Practitioner; Referring Provider Emergency Medicine; Visit Provider Internal Medicine
DX: T83.511A Infection and inflammatory reaction due to indwelling urethral catheter, initial encounter (principal); E87.1 Hypo-osmolality and hyponatremia; C34.92 Malignant neoplasm of unspecified part of left bronchus or lung; T83.091A Other mechanical complication of indwelling urethral catheter, initial encounter; N39.0 Urinary tract infection, site not specified; N40.1 Benign prostatic hyperplasia with lower urinary tract symptoms; R33.8 Other retention of urine; R35.0 Frequency of micturition; E87.5 Hyperkalemia; D69.6 Thrombocytopenia, unspecified; D63.0 Anemia in neoplastic disease; G89.3 Neoplasm related pain (acute) (chronic); F17.290 Nicotine dependence, other tobacco product, uncomplicated; G40.909 Epilepsy, unspecified, not intractable, without status epilepticus; I10 Essential (primary) hypertension; E11.9 Type 2 diabetes mellitus without complications; Z20.822 Contact with and (suspected) exposure to COVID-19; Z79.84 Long term (current) use of oral hypoglycemic drugs
CPT/HCPCS: 36415; 71045; 80048; 80053; 81001; 82962; 83605; 83690; 83735; 84132; 84145; 85007; 85025; 87040; 87077; 87086; 87186; 87635; 93005; 93010; 94760; 96361; 96365; 99285; 99406; C9803; G0378; J0696; J1650; J1815

== ENCOUNTER → 2021-07-13 08:10 | Outpatient (CLI) | payer MEDICARE, SELFPAY ==
[2021-06-20 21:14] VITALS: BMI 25.9
[2021-07-13 20:33] LABS: COVID-19 CEPHEID PCR (VTM/NP) Negative (Negative)
== END ==
PROVIDERS: Family Provider Internal Medicine; PCP Nurse Practitioner; Visit Provider Physician Assistant
DX: Z01.812 Encounter for preprocedural laboratory examination (principal); Z20.822 Contact with and (suspected) exposure to COVID-19
CPT/HCPCS: C9803; U0003; U0005

== ENCOUNTER → 2021-07-28 13:30 | Outpatient (CLI) | payer MEDICARE, OTHER, SELFPAY ==
[2021-06-20 21:14] VITALS: BMI 25.9
--- NOTE | 2021-07-28 | DI.ECHO.S_ITS ---
[facility] +---------+ : : [address] [address] : : : : [id number] : : : : Phone: [phone] Echocardiogram Report + + :Name: JENNIFFER SOLIZ Study Date: 07/28/2021 Height: 69.5 in: :[facility] ReadingLocation: Weight: 176 lb : : Gender: Male BSA: 2.0 m2 : :: 1950 Age: 70 yrs BP: 131/70 mmHg: :Reason For Study: CHEST PAIN : :Ordering Physician: PRAFUL, : :CHERELLE Jonas Performed By: Suzy Brunner : :Referring: CHERELLE BASILIO : + + Interpretation Summary The left ventricle is grossly normal size. There is mild asymmetric left ventricular hypertrophy. There appears to be some increased trabeculation with deep recesses. Although presentation is not classic for non-compaction LV cardiomyopathy. Consdier MRI if permissible with pacemaker. There is a moderate dyssynchronous contraction pattern due to the paced rhythm. Diastolic function could not be accurately assessed due to paced rhythm. The right ventricle is normal in size and function. There is a pacemaker lead in the right ventricle. The right ventricular systolic pressure is estimated to be at least 30 mmHg based on an estimated right atrial pressure of 3 mm Hg. The left atrium is mildly dilated. The right atrium is mildly dilated. The atrial septum is aneurysmal. There is no Doppler evidence for an interatrial shunt. There is no significant valvular heart disease. The aortic root is borderline dilated. Procedure: A two-dimensional transthoracic echocardiogram with color flow and Doppler was performed. The study quality was technically adequate. The patient had an echocardiogram, but there is no comparison study available. The patient has a paced rhythm. The heart rate ranged between 60-65 bpm during the study. Left Ventricle: The left ventricle is grossly normal size. There is mild asymmetric left ventricular hypertrophy. There appears to be some increased trabeculation with deep recesses. Although presentation is not classic. Consdier MRI if permissible with pacemaker. The ejection fraction is estimated to be 60-65%. There is a moderate dyssynchronous contraction pattern due to the paced rhythm. There are no focal wall motion abnormalities. Diastolic function could not be accurately assessed due to paced rhythm. Right Ventricle: The right ventricle is normal in size and function. There is a pacemaker lead in the right ventricle. Atria: The left atrium is mildly dilated. The right atrium is mildly dilated. The atrial septum is aneurysmal. There is no Doppler evidence for an interatrial shunt. Mitral Valve: The mitral valve is normal in structure and function. There is trace mitral regurgitation. Aortic Valve: The aortic valve is trileaflet. The aortic valve opens well. There is no aortic valve stenosis. No aortic regurgitation is present. Tricuspid Valve: The tricuspid valve is normal in structure and function. There is mild tricuspid regurgitation. The right ventricular systolic pressure is estimated to be at least 30 mmHg based on an estimated right atrial pressure of 3 mm Hg. Pulmonic Valve: The pulmonic valve leaflets are thin and pliable; valve motion is normal. There is no pulmonic valvular regurgitation. There is no significant valvular heart disease. Great Vessels: The aortic root is borderline dilated. The ascending aorta is at the upper limits of normal in size. The IVC is of normal diameter and collapses greater than 50% with a sniff. This suggests a low right atrial pressure of 3 mm Hg. Pericardium/ Pleura There is no pericardial effusion. There is no pleural effusion. MMode/2D Measurements & Calculations LVIDd: 4.5 cm LVOT diam: 2.4 cm LVIDs: 2.9 cm Ao root diam: 3.9 cm FS: 35.6 % asc Aorta Diam: 3.7 cm IVSd: 1.0 cm LVPWd: 0.93 cm LV navarrete. diameter/BSA (cm/m^2): 2.3 LV sys. diameter/BSA (cm/m^2): 1.5 LA A2 area: 26.4 cm2 RA long axis: 6.0 cm LA A4 area: 20.1 cm2 RA area: 22.9 cm2 LA length (vol): 6.3 cm RA vol: 74.5 ml LA vol: 71.9 ml RA : 37.9 ml/m2 LA vol index: 36.5 ml/m2 IVC diam: 1.3 cm RVD1 (basal): 3.6 cm TAPSE: 1.8 cm Doppler Measurements & Calculations Ao V2 max: 153.9 cm/sec LVOT Max Henry: 125.9 cm/sec Ao V2 mean: 108.6 cm/sec LV V1 max P.3 mmHg Ao max P.5 mmHg LV V1 VTI: 25.2 cm Ao mean P.2 mmHg ROSA(I,D): 3.6 cm2 Ao V2 VTI: 31.4 cm ROSA(V,D): 3.7 cm2 sev ratio: 0.80 ROSA indexed to BSA (cm^2/m^2): 1.9 MV E max henry: 81.3 cm/sec TR max henry: 258.3 cm/sec MV A max henry: 89.8 cm/sec TR max P.7 mmHg MV E/A: 0.91 PA V2 max: 111.9 cm/sec Med Peak E' Henry: 6.5 cm/sec PA V2 mean: 75.1 cm/sec E/E' med: 12.6 PA mean P.7 mmHg Lat Peak E' Henry: 6.3 cm/sec PA pr(Accel): 41.3 mmHg E/E' lat: 13.0 E/e' average: 12.8 MV dec time: 0.27 sec SV(LVOT): 114.4 ml Reading Physician:12:19 PM
== END ==
PROVIDERS: Family Provider Internal Medicine; PCP Nurse Practitioner; Referring Provider Internal Medicine Cardiovascular Disease; Visit Provider Internal Medicine Cardiovascular Disease
DX: I07.1 Rheumatic tricuspid insufficiency (principal); R07.9 Chest pain, unspecified
CPT/HCPCS: 93306

== ENCOUNTER → 2022-01-13 14:47 | Outpatient (CLI) | payer MEDICARE, OTHER, SELFPAY ==
[2021-06-20 21:14] VITALS: BMI 25.9
[2022-01-13 19:45] LABS: Add Manual Diff / Slide Review NO; Basophils Absolute Auto 0 /uL (0-100); Basophils Percent Auto 0.5 % (0-2); Eosinophils Absolute Auto 200 /uL (0-450); Eosinophils Percent Auto 1.7 % (2-4); Hematocrit 37.9 % (41-53); Hemoglobin 13.3 g/dL (13.5-17.5); Lymphocytes Absolute Auto 800 /uL (1100-4500); Mean Corpuscular HGB Conc 35.2 % (30-36); Mean Corpuscular Hemoglobin 30.9 PG (26-34); Mean Corpuscular Volume 87.9 fL (80-100); Monocytes Absolute Auto 1000 /uL (0-900); Monocytes Percent Auto 10.8 % (3-14); Neutrophils Absolute Auto 7000 /uL (1500-7000); Platelet Count 318 X10^3/uL (150-400); Red Blood Cell Count 4.31 X10^6/uL (4.5-5.9); Red Cell Distribution Width 14.7 % (11.6-14.8); White Blood Cell Count 8.9 X10^3/uL (4.5-11.0)
[2022-01-13 19:54] LABS: Alanine Aminotransferase 15 IU/L (<50); Albumin 4.7 g/dL (3.5-5.0); Albumin Globulin Ratio 1.3 (1.0-2.8); Alkaline Phosphatase 81 U/L (38-126); Aspartate Aminotransferase 24 IU/L (17-59); BUN Creatinine Ratio 14.3 (6-22); Bilirubin Total 0.5 mg/dL (0.2-1.3); Blood Urea Nitrogen 12 mg/dL (9-20); Calcium 9.6 mg/dL (8.4-10.2); Carbon Dioxide 26 mmol/L (22-32); Chloride 89 mmol/L (98-107); Estimated Glomerular Filt Rate > 60 mL/min (>60); Globulin 3.5 g/dL (1.7-4.1); Glucose 214 mg/dL (80-110); HEMOLYSIS < 15 (0-50); Potassium 4.4 mmol/L (3.4-5.1); Sodium 127 mmol/L (137-145); Total Protein 8.2 g/dL (6.3-8.2)
[2022-01-13 19:57] LABS: Hemoglobin A1C% w Est Avg Glu 6.8 % (4.0-6.0)
[2022-01-13 20:24] LABS: TSH w/ Reflex to FT4 1.06 uIU/mL (0.47-4.68)
[2022-01-13 20:42] LABS: Vitamin B12 326 pg/mL (239-931)
== END ==
PROVIDERS: Family Provider Internal Medicine; PCP Family Medicine; Visit Provider Family Medicine
DX: E11.9 Type 2 diabetes mellitus without complications (principal); E87.1 Hypo-osmolality and hyponatremia; I10 Essential (primary) hypertension; Z13.220 Encounter for screening for lipoid disorders; F10.20 Alcohol dependence, uncomplicated; M54.16 Radiculopathy, lumbar region
CPT/HCPCS: 80053; 82607; 83036; 84443; 85025

== ENCOUNTER → 2022-03-03 14:09 | Outpatient (CLI) | payer MEDICARE, OTHER, SELFPAY ==
[2021-06-20 21:14] VITALS: BMI 25.9
[2022-03-03 19:30] LABS: Alanine Aminotransferase 23 IU/L (<50); Albumin 4.6 g/dL (3.5-5.0); Albumin Globulin Ratio 1.4 (1.0-2.8); Alkaline Phosphatase 74 U/L (38-126); Aspartate Aminotransferase 27 IU/L (17-59); BUN Creatinine Ratio 19.2 (6-22); Bilirubin Total 0.4 mg/dL (0.2-1.3); Blood Urea Nitrogen 14 mg/dL (9-20); Carbon Dioxide 23 mmol/L (22-32); Chloride 95 mmol/L (98-107); Estimated Glomerular Filt Rate > 60 mL/min (>60); Globulin 3.4 g/dL (1.7-4.1); Glucose 151 mg/dL (80-110); HEMOLYSIS < 15 (0-50); Potassium 4.6 mmol/L (3.4-5.1); Sodium 135 mmol/L (137-145)
[2022-03-03 20:04] LABS: Add Manual Diff / Slide Review NO; Basophils Absolute Auto 100 /uL (0-100); Basophils Percent Auto 0.7 % (0-2); Eosinophils Absolute Auto 100 /uL (0-450); Eosinophils Percent Auto 1.7 % (2-4); Hematocrit 37.4 % (41-53); Hemoglobin 12.9 g/dL (13.5-17.5); Lymphocytes Absolute Auto 1000 /uL (1100-4500); Mean Corpuscular HGB Conc 34.5 % (30-36); Mean Corpuscular Hemoglobin 29.8 PG (26-34); Mean Corpuscular Volume 86.5 fL (80-100); Monocytes Absolute Auto 700 /uL (0-900); Monocytes Percent Auto 9.5 % (3-14); Neutrophils Absolute Auto 5800 /uL (1500-7000); Neutrophils Percent Auto 75.1 % (50-75); Platelet Count 318 X10^3/uL (150-400); Red Blood Cell Count 4.33 X10^6/uL (4.5-5.9); Red Cell Distribution Width 14.5 % (11.6-14.8); White Blood Cell Count 7.7 X10^3/uL (4.5-11.0)
[2022-03-03 21:05] LABS: Creatinine Urine Random 146.3 mg/dL; Sodium Urine Random 82 mmol/L (30-90)
[2022-03-03 21:09] LABS: Microalbumi Creatinin Ratio Ur 94.3 ug/mg CR (<30); Microalbumin Urine Random 13.8 mg/dL (0-1.6)
[2022-03-05 10:36] LABS: Osmolality Urine 575 mOsmol/kg (.); Osmolality, Serum 282 mOsmol/kg (280-301)
== END ==
PROVIDERS: Family Provider Internal Medicine; PCP Family Medicine; Visit Provider Family Medicine
DX: E11.9 Type 2 diabetes mellitus without complications (principal); E87.1 Hypo-osmolality and hyponatremia; G40.909 Epilepsy, unspecified, not intractable, without status epilepticus; I10 Essential (primary) hypertension; R41.3 Other amnesia; R41.89 Other symptoms and signs involving cognitive functions and awareness; F10.20 Alcohol dependence, uncomplicated; M54.16 Radiculopathy, lumbar region
CPT/HCPCS: 80053; 82043; 82570; 83930; 83935; 84300; 85025

== ENCOUNTER 2022-03-28 16:36 | Emergency (ER) | payer MEDICARE, OTHER, SELFPAY ==
[2022-03-26 15:30] VITALS: BMI 25.9
[2022-03-28] VITALS (36 sets, daily range): BP systolic 105–173; BP diastolic 53–80; PULSE 59–98; RESP 16–43; TEMP 35.7; O2SAT 86–96; BMI 25.1
--- NOTE | 2022-03-28 16:55 | DI.CT.S_ITS ---
PROCEDURE: CT HEAD/BRAIN WO CON INDICATIONS: recent fall, confusion, hallucinations TECHNIQUE: Noncontrast 4.5 mm thick angled axial sections acquired from the foramen magnum to the vertex, with coronal and sagittal reformats. For radiation dose reduction, the following was used: automated exposure control, adjustment of mA and/or kV according to patient size. COMPARISON: [facility], CT, CT HEAD TPA, 03/24/2021, 18:13. [facility], [place], PET NECK TO MID THIGH, 06/24/2021, 13:37. [facility], CT, HEAD WITHOUT CONTRAST, 10/09/2008, 20:53. FINDINGS: Image quality: Excellent. CSF spaces: Basal cisterns are patent. No extra-axial fluid collections. Ventricles are normal in size and shape. Brain: There is now a right frontal cystic lesion with irregular capsular wall thickening. Lesion measures overall 3.9 x 3.2 by 3.1 cm. Wall thickening is thicker peripherally, measures up to 7 mm. Mild frontal gliosis noted, similar prior Additional hyperdense periventricular nodule measures 1.2 x 1.2 x 0.3 cm. Mild mass effect results in 1-2 mm midline shift. Skull and face: Calvarium and visualized facial bones are intact, without suspicious lesions. Right pterional craniotomy. Dual MCA aneurysm clips noted, unchanged from the prior. Sinuses: Visualized sinuses and mastoids are clear. IMPRESSION: 1. Right frontal cystic lesion with irregular nodular capsule, new from the prior. Differential possibilities include metastatic mass lesion with internal necrosis or brittanie-tumoral cyst. Differential would intracerebral abscess. Consider follow-up MRI with contrast. 2. 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 No significant peripheral edema. Trace midline shift, 1-2 mm. 3. Previous right MCA dual aneurysm clips, frontal gliosis and volume loss, pterional craniotomy are unchanged from the prior Approved by: Florin Doresy M.D. on 03/28/2022 at 16:53
--- NOTE | 2022-03-28 16:55 | DI.RAD.S_ITS ---
PROCEDURE: XR CHEST 1V INDICATIONS: cough, SOB TECHNIQUE: One view of the chest was acquired. COMPARISON: [facility], CR, XR CHEST 1V, 06/20/2021, 19:06. FINDINGS: Surgical changes and devices: Left-sided dual-chamber pacemaker and right-sided Port-A-Cath Lungs and pleura: Right apical pneumothorax measures 5.6 cm to the thoracic apex. Left lung is clear. Mediastinum: Mediastinal contours appear normal. Heart size is enlarged. Bones and chest wall: No suspicious bony lesions. Overlying soft tissues appear unremarkable. IMPRESSION: 1. Right apical pneumothorax Note: Critical results were discussed with Dr. Flores at 05:03 PM [place] time on 03/28/22 Approved by: Florin Dorsey M.D. on 03/28/2022 at 17:03
[2022-03-28 17:05] LABS: Add Manual Diff / Slide Review NO; Basophils Absolute Auto 0 /uL (0-100); Basophils Percent Auto 0.1 % (0-2); Eosinophils Absolute Auto 0 /uL (0-450); Hematocrit 37.9 % (41-53); Hemoglobin 12.7 g/dL (13.5-17.5); Lymphocytes Absolute Auto 700 /uL (1100-4500); Mean Corpuscular HGB Conc 33.5 % (30-36); Mean Corpuscular Hemoglobin 29.5 PG (26-34); Mean Corpuscular Volume 87.8 fL (80-100); Monocytes Absolute Auto 1400 /uL (0-900); Monocytes Percent Auto 7.4 % (3-14); Neutrophils Absolute Auto 16200 /uL (1500-7000); Neutrophils Percent Auto 88.5 % (50-75); Platelet Count 328 X10^3/uL (150-400); Red Blood Cell Count 4.32 X10^6/uL (4.5-5.9); Red Cell Distribution Width 15.2 % (11.6-14.8); White Blood Cell Count 18.3 X10^3/uL (4.5-11.0)
[2022-03-28 17:23] LABS: Fractionated Inspired Oxygen 28; HCO3 ABG 20 mmol/L (22-26); Oxygen Saturation ABG 95 % (95-100); PCO2 ABG 32.2 mmHg (35-45); PO2 ABG 77 mmHg (80-100); TCO2 ABG 21 mmol/L (21-31); pH ABG 7.39 (7.35-7.45)
[2022-03-28 17:23] LABS: Alanine Aminotransferase 32 IU/L (<50); Albumin 4.5 g/dL (3.5-5.0); Alkaline Phosphatase 79 U/L (38-126); Aspartate Aminotransferase 56 IU/L (17-59); BUN Creatinine Ratio 38.1 (6-22); Bilirubin Total 0.7 mg/dL (0.2-1.3); Blood Urea Nitrogen 43 mg/dL (9-20); Calcium 8.8 mg/dL (8.4-10.2); Carbon Dioxide 21 mmol/L (22-32); Chloride 93 mmol/L (98-107); Creatine Kinase 835 U/L (55-170); Estimated Glomerular Filt Rate > 60 mL/min (>60); Globulin 4.3 g/dL (1.7-4.1); Glucose 214 mg/dL (80-110); HEMOLYSIS < 15 (0-50); Potassium 4.6 mmol/L (3.4-5.1); Sodium 133 mmol/L (137-145); Total Protein 8.8 g/dL (6.3-8.2)
[2022-03-28 17:24] LABS: Lactate (Lactic Acid) 3.4 mmol/L (0.7-2.1)
[2022-03-28 17:28] LABS: Magnesium 0.6 mg/dL (1.6-2.3)
[2022-03-28 17:35] LABS: NT-proBNP (BNP-Adult 18+) 3060 pg/mL (<125); Troponin I 0.056 ng/mL (0.01-0.034)
[2022-03-28 17:38] LABS: CKMB % Relative Index 1.9 % (1.5-5.0)
--- NOTE | 2022-03-28 17:48 | ED_ITS ---
HPI - Sepsis <Zechariah Flores DO - Last Filed: 03/31/22 02:39> General Chief Complaint: Weakness Evaluation Sepsis Screen: No Definite Risk Sepsis Infection Criteria Present: None Narrative: 71-year-old male smoker with known lung cancer diagnosed in February 2021 being treated by Oncology at [facility] with immunotherapy post radiation, post chemotherapy presents with a chief complaint of increasing shortness of breath, right-sided rib pain, confusion and generalized weakness over the past few days. He suffered a ground level fall a few days ago and landed on his right-sided ribs and had x-rays performed at an outside facility noting fracture of his 10th rib. He has been taking pain medications and presents today feeling significantly worse. He is short of breath with minimal exertion and also with lying flat, he is had wet gurgling lung sounds and has had increased swelling in his lower extremities bilaterally. He has a history of cerebral aneurysm repair but states imaging as recently as 6 months ago showed no metastatic disease of his brain. He has a history of seizures, hypertension and alcohol abuse. Review of Systems <Zechariah Flores DO - Last Filed: 03/31/22 02:39> Review of Systems Narrative: GENERAL: Denies chills, fatigue, malaise, fever, sweats. HEENT: Denies sinus pain, ear pain, sore throat, difficulty swallowing, dizziness. RESPIRATORY: See HPI CARDIOVASCULAR: Denies chest pain, palpitations, orthopnea, edema, GASTROINTESTINAL: Denies nausea, vomiting, abdominal pain, diarrhea, constipation, melena. : Denies dysuria, frequency, incontinence, hematuria, urinary retention. MUSCULOSKELETAL: denies weakness, joint pain, or bony pain SKIN: Denies rash, skin lesions, or other NEUROLOGIC: Denies weakness, headache, numbness, change in speech, confusion, seizures, incoordination. PSYCHIATRIC: No concerning psychosocial issues. 12 point review of systems is negative except for those stated above Patient History <Zechariah Flores DO - Last Filed: 03/31/22 02:39> Medical History (Updated 03/30/22 @ 11:12 by Blu Aguilar DO) Alcohol abuse BPH (benign prostatic hyperplasia) Cancer (~2020) Chest pain Chronic back pain Complete heart block Diabetes mellitus Essential hypertension Herpes Rheumatoid arthritis Rosacea Seizures Spinal stenosis Surgical History (Updated 01/12/22 @ 20:09 by Azul Blancas) Pacemaker Social History household members: spouse Smoking Status: Current every day smoker alcohol intake: current Smoking Status: Current every day smoker alcohol intake frequency: 0-2 drinks per day Substance Use Type: marijuana Exam <Zechariah Flores DO - Last Filed: 03/31/22 02:39> Narrative Exam Narrative: GENERAL: [71] year old patient appears stated age. Well-developed patient, in obvious distress. Thin, evidence of chronic illness, temporal wasting HEAD: Atraumatic. Normocephalic. EYES: Pupils equal round and reactive. Extraocular motions intact. No scleral icterus. No injection or drainage. ENT: Nose without bleeding, purulent drainage. Throat without erythema, tonsillar hypertrophy or exudate. Airway patent. NECK: Trachea midline. Non tender CARDIOVASCULAR: R tachycardic but regular rhythm without murmurs, gallops, or rubs. RESPIRATORY: Increased work of breathing, wet, rhonchorous breath sounds decreased on the right compared to left GASTROINTESTINAL: Abdomen soft, non-tender, nondistended. EXTREMITIES: No edema or joint tenderness. BACK: Nontender without deformity or crepitance. No flank tenderness. NEURO: AOx3. SKIN: No rash or erythema of visible areas Initial Vital Signs Initial Vital Signs: Vital Signs Temperature 96.3 F L 03/28/22 16:52 Pulse Rate 72 03/28/22 16:52 Respiratory Rate 16 03/28/22 16:52 Blood Pressure 161/76 H 03/28/22 16:52 Pulse Oximetry 86 L 03/28/22 16:52 Oxygen Delivery Method 03/28/22 16:52 <Ginny Cloud DO - Last Filed: 04/02/22 19:09> Initial Vital Signs Initial Vital Signs: Vital Signs Temperature 96.3 F L 03/28/22 16:52 Pulse Rate 72 03/28/22 16:52 Respiratory Rate 16 03/28/22 16:52 Blood Pressure 161/76 H 03/28/22 16:52 Pulse Oximetry 86 L 03/28/22 16:52 Oxygen Delivery Method 03/28/22 16:52 <Mona Naranjo DO - Last Filed: 04/09/22 11:25> Initial Vital Signs Initial Vital Signs: Vital Signs Temperature 96.3 F L 03/28/22 16:52 Pulse Rate 72 03/28/22 16:52 Respiratory Rate 16 03/28/22 16:52 Blood Pressure 161/76 H 03/28/22 16:52 Pulse Oximetry 86 L 03/28/22 16:52 Oxygen Delivery Method 03/28/22 16:52 <Blu Aguilar, DO - Last Filed: 03/30/22 11:55> Initial Vital Signs Initial Vital Signs: Vital Signs Temperature 96.3 F L 03/28/22 16:52 Pulse Rate 72 03/28/22 16:52 Respiratory Rate 16 03/28/22 16:52 Blood Pressure 161/76 H 03/28/22 16:52 Pulse Oximetry 86 L 03/28/22 16:52 Oxygen Delivery Method 03/28/22 16:52 Procedures <Zechariah Flores, DO - Last Filed: 03/31/22 02:39> Chest Tube Chest Tube 1: Chest Tube Location: right, anterior axillary line and fourth interspace Chest Tube Prep: Yes betadine prep and sterile drapes applied Local Anesthetic: lidocaine 1% Amount of anesthesia used (mL): 6 Incision Made With: #11 blade Post Procedure: sutured to skin and sterile dressing applied Post Procedure CXR?: Yes Patient Tolerated Procedure: Yes <Ginny Cloud, DO - Last Filed: 04/02/22 19:09> Chest Tube Chest Tube 2: Chest Tube Location: right and anterior axillary line Size of Tube (cm): 20 Chest Tube Prep: Yes betadine prep and sterile drapes applied Local Anesthetic: lidocaine 2% Amount of anesthesia used (mL): 5 Incision Made With: #11 blade Post Procedure: sutured to skin and sterile dressing applied Tube Drainage: none Amount of initial drainage (mL): 0 Post Procedure CXR?: Yes Patient Tolerated Procedure: Yes Procedural Sedation Consent signed: Yes Indication: other (chest tube) Preparation: coutierier applied, pulse oximeter, capnometry used and suction/airway equipment at bedside IV Propofol dose (mg): 125 ED Sedation Level: Moderate (Concious) Patient Tolerated Procedure: Well and No complications Complications: none Course <Zechariah Flores, DO - Last Filed: 03/31/22 02:39> Orders Ordered: Discontinued Medications Dexamethasone (Dexamethasone 10 Mg/Ml Vial) 10 mg IV NOW ONE Stop: 03/29/22 07:37 Last Admin: 03/29/22 07:45 Dose: 10 mg Documented By: SORIN Dexamethasone (Dexamethasone 4 Mg Tablet) 4 mg PO Q6H [facility] Last Admin: 03/30/22 08:31 Dose: 4 mg Documented By: Admin: 03/30/22 04:49 Dose: 4 mg Documented By: Admin: 03/29/22 20:21 Dose: 4 mg Documented By: Admin: 03/29/22 14:16 Dose: 4 mg Documented By: CTS Furosemide (Furosemide 40 Mg/4 Ml Vial) 40 mg IV NOW ONE Stop: 03/28/22 17:49 Last Admin: 03/28/22 18:26 Dose: 40 mg Documented By: AT Furosemide (Furosemide 40 Mg/4 Ml Vial) 40 mg IV NOW ONE Stop: 03/29/22 03:07 Last Admin: 03/29/22 03:19 Dose: 40 mg Documented By: RL Glimepiride (Glimepiride 2 Mg Tablet) 2 mg PO BID [facility] Stop: 04/03/22 10:59 Last Admin: 03/30/22 08:26 Dose: 2 mg Documented By: Admin: 03/29/22 20:20 Dose: 2 mg Documented By: Admin: 03/29/22 12:27 Dose: 2 mg Documented By: RAMANDEEP Hydromorphone HCl (Hydromorphone 0.5 Mg Inj) 0.5 mg IV NOW ONE Stop: 03/28/22 19:31 Last Admin: 03/28/22 18:54 Dose: 0.5 mg Documented By: AT Hydromorphone HCl (Hydromorphone 0.5 Mg Inj) 0.5 mg IV NOW ONE Stop: 03/28/22 19:51 Last Admin: 03/28/22 19:57 Dose: 0.5 mg Documented By: ANATOLIY Hydromorphone HCl (Hydromorphone 0.5 Mg Inj) 0.5 mg IV NOW ONE Stop: 03/28/22 22:22 Last Admin: 03/28/22 22:44 Dose: 0.5 mg Documented By: CAROLINE Hydromorphone HCl (Hydromorphone 0.5 Mg Inj) 0.5 mg IV Q4H PRN PRN Reason: Pain, Moderate (4-6) Last Admin: 03/30/22 12:30 Dose: 0.5 mg Documented By: Admin: 03/30/22 04:50 Dose: 0.5 mg Documented By: Admin: 03/29/22 14:16 Dose: 0.5 mg Documented By: Admin: 03/29/22 08:18 Dose: 0.5 mg Documented By: Admin: 03/29/22 01:56 Dose: 0.5 mg Documented By: SORIN Levofloxacin (Levaquin) 750 mg in 150 mls @ 100 mls/hr IV NOW ONE Stop: 03/28/22 19:17 Last Infusion: 03/28/22 20:24 Dose: 0 mls/hr Documented By: Admin: 03/28/22 18:30 Dose: 100 mls/hr Documented By: AT Magnesium Sulfate (Magnesium Sulfate) 2 gm in 50 mls @ 150 mls/hr IV NOW ONE Stop: 03/28/22 18:07 Last Infusion: 03/28/22 18:40 Dose: 0 mls/hr Documented By: AT Co-signed By: WICHO Admin: 03/28/22 18:18 Dose: 150 mls/hr Documented By: AT Co-signed By: CAROLINE Levofloxacin (Levaquin) 750 mg in 150 mls @ 100 mls/hr IV Q24H [facility] Last Infusion: 03/29/22 19:37 Dose: 0 mls/hr Documented By: Admin: 03/29/22 17:59 Dose: 100 mls/hr Documented By: CTS Sodium Chloride (Normal Saline 0.9%) 1,000 mls @ 200 mls/hr IV CONT ONE Stop: 03/30/22 00:36 Last Infusion: 03/30/22 00:38 Dose: 0 mls/hr Documented By: Admin: 03/29/22 19:38 Dose: 200 mls/hr Documented By: CTS Sodium Chloride (Normal Saline 0.9%) 1,000 mls @ 100 mls/hr IV CONT [facility] Last Infusion: 03/30/22 12:30 Dose: 100 mls/hr Documented By: Admin: 03/30/22 09:18 Dose: 100 mls/hr Documented By: CTS Magnesium Sulfate (Magnesium Sulfate) 2 gm in 50 mls @ 25 mls/hr IV NOW ONE Stop: 03/30/22 12:31 Last Infusion: 03/30/22 12:31 Dose: 0 mls/hr Documented By: RAMANDEEP Co-signed By: BS Admin: 03/30/22 10:40 Dose: 25 mls/hr Documented By: RAMANDEEP Co-signed By: RB Lidocaine HCl (Lidocaine 2% Inj Mdv 20ml) 1 ml SUBCUT NOW ONE Stop: 03/28/22 18:29 Last Admin: 03/28/22 19:33 Dose: Not Given Documented By: AT Lidocaine HCl (Lidocaine 2% Inj Mdv 20ml) 1 ml SUBCUT NOW ONE Stop: 03/29/22 00:59 Last Admin: 03/29/22 01:36 Dose: 1 ml Documented By: RL Lidocaine HCl (Lidocaine 2% (Glydo) 6 Ml Gel) 6 ml TOP NOW ONE Stop: 03/30/22 09:38 Last Admin: 03/30/22 09:40 Dose: 6 ml Documented By: RAMANDEEP Lisinopril (Lisinopril 20 Mg Tablet) 40 mg PO NOW [facility] Stop: 04/03/22 10:59 Lisinopril (Lisinopril 20 Mg Tablet) 40 mg PO DAILY [facility] Last Admin: 03/30/22 08:27 Dose: 40 mg Documented By: Admin: 03/29/22 12:27 Dose: 40 mg Documented By: RAMANDEEP Magnesium Oxide (Magnesium Oxide 400 Mg Tablet) 400 mg PO BID [facility] Stop: 04/03/22 10:59 Last Admin: 03/30/22 08:25 Dose: 400 mg Documented By: Admin: 03/29/22 20:20 Dose: 400 mg Documented By: Admin: 03/29/22 12:28 Dose: 400 mg Documented By: RAMANDEEP Metformin HCl (Metformin Hcl 500 Mg Tablet) 1,000 mg PO 0800,1700 [facility] Stop: 04/03/22 11:00 Last Admin: 03/30/22 08:27 Dose: 1,000 mg Documented By: Admin: 03/29/22 18:37 Dose: 1,000 mg Documented By: Admin: 03/29/22 12:28 Dose: 1,000 mg Documented By: RAMANDEEP Metoprolol Tartrate (Metoprolol Tartrate 5 Mg/5 Ml Inj) 5 mg IV NOW ONE Stop: 03/28/22 20:57 Last Admin: 03/28/22 21:05 Dose: 5 mg Documented By: CAROLINE Metoprolol Tartrate (Metoprolol Ir 25 Mg Tablet) 12.5 mg PO BID [facility] Stop: 04/03/22 11:14 Last Admin: 03/30/22 08:28 Dose: 12.5 mg Documented By: Admin: 03/29/22 20:21 Dose: 12.5 mg Documented By: Admin: 03/29/22 12:29 Dose: 12.5 mg Documented By: CTS Morphine Sulfate (Morphine Er 15 Mg Tablet) 15 mg PO BID [facility] Last Admin: 03/30/22 08:26 Dose: 15 mg Documented By: CTS Morphine Sulfate (Morphine Er 15 Mg Tablet) 15 mg PO NOW ONE Stop: 03/29/22 17:01 Last Admin: 03/29/22 17:59 Dose: 15 mg Documented By: CTS Pantoprazole Sodium (Pantoprazole 40 Mg Vial) 40 mg IV DAILY [facility] Stop: 04/03/22 11:14 Last Admin: 03/29/22 12:42 Dose: Not Given Documented By: RAMANDEEP Pantoprazole Sodium (Pantoprazole Dr 40 Mg Tablet) 40 mg PO DAILY [facility] Last Admin: 03/30/22 08:23 Dose: 40 mg Documented By: Admin: 03/29/22 12:28 Dose: 40 mg Documented By: RAMANDEEP Propofol (Propofol 200 Mg/20 Ml Vial) 75 mg 1 mg/kg (75 mg) IV NOW ONE Stop: 03/29/22 00:58 Last Admin: 03/29/22 01:35 Dose: Not Given Documented By: SORIN Propofol (Propofol 200 Mg/20 Ml Vial) 125 mg IV NOW ONE Stop: 03/29/22 01:16 Last Admin: 03/29/22 01:35 Dose: 125 mg Documented By: SORIN Sennosides (Sennosides 8.6 Mg Tablet) 8.6 mg PO BEDTIME [facility] Last Admin: 03/29/22 20:22 Dose: 8.6 mg Documented By: RAMANDEEP Tamsulosin HCl (Tamsulosin 0.4 Mg Capsule) 0.4 mg PO NOW [facility] Stop: 04/03/22 10:59 Tamsulosin HCl (Tamsulosin 0.4 Mg Capsule) 0.4 mg PO DAILY [facility] Last Admin: 03/30/22 08:26 Dose: 0.4 mg Documented By: Admin: 03/29/22 12:28 Dose: 0.4 mg Documented By: CTS Zonisamide (Zonisamide 100 Mg Capsule) 200 mg PO BEDTIME [facility] Stop: 04/03/22 20:59 Last Admin: 03/29/22 20:20 Dose: 200 mg Documented By: RAMANDEEP Vital Signs Vital signs: Vital Signs - 8 hr 03/30/22 04:00 03/30/22 04:00 03/30/22 04:30 Temperature Pulse Rate 61 61 Respiratory Rate 26 H 25 H Blood Pressure 158/67 H Pulse Oximetry 92 91 Oxygen Delivery Method Oxygen Flow Rate 2 2 03/30/22 05:00 03/30/22 05:00 03/30/22 05:30 Temperature Pulse Rate 72 71 Respiratory Rate 22 23 Blood Pressure 147/73 H Pulse Oximetry 91 93 Oxygen Delivery Method Oxygen Flow Rate 2 2 03/30/22 06:00 03/30/22 06:00 03/30/22 06:30 Temperature Pulse Rate 68 68 Respiratory Rate 23 22 Blood Pressure 128/59 L Pulse Oximetry 94 95 Oxygen Delivery Method Oxygen Flow Rate 2 2 03/30/22 07:00 03/30/22 07:00 03/30/22 07:30 Temperature Pulse Rate 70 70 Respiratory Rate 21 32 H Blood Pressure 137/72 Pulse Oximetry 96 94 Oxygen Delivery Method Oxygen Flow Rate 2 03/30/22 08:27 03/30/22 08:00 03/30/22 08:30 Temperature Pulse Rate 73 72 75 Respiratory Rate 25 H 20 Blood Pressure 137/72 Pulse Oximetry 93 90 L Oxygen Delivery Method Nasal Cannula Nasal Cannula Oxygen Flow Rate 2 2 03/30/22 09:00 03/30/22 09:00 03/30/22 09:28 Temperature 97.5 F L Pulse Rate 71 Respiratory Rate 26 H Blood Pressure 124/57 L Pulse Oximetry 92 Oxygen Delivery Method Nasal Cannula Oxygen Flow Rate 2 03/30/22 09:30 03/30/22 10:00 03/30/22 10:00 Temperature Pulse Rate 68 70 Respiratory Rate 25 H 23 Blood Pressure 160/72 H Pulse Oximetry 93 93 Oxygen Delivery Method Oxygen Flow Rate 2 03/30/22 10:30 03/30/22 11:00 03/30/22 11:00 Temperature Pulse Rate 68 70 Respiratory Rate 20 26 H Blood Pressure 150/81 H Pulse Oximetry 95 94 Oxygen Delivery Method Oxygen Flow Rate 03/30/22 11:30 Temperature Pulse Rate 70 Respiratory Rate 22 Blood Pressure Pulse Oximetry 93 Oxygen Delivery Method Oxygen Flow Rate <Ginny Cloud, DO - Last Filed: 04/02/22 19:09> Orders Ordered: Discontinued Medications Dexamethasone (Dexamethasone 10 Mg/Ml Vial) 10 mg IV NOW ONE Stop: 03/29/22 07:37 Last Admin: 03/29/22 07:45 Dose: 10 mg Documented By: RL Dexamethasone (Dexamethasone 4 Mg Tablet) 4 mg PO Q6H [facility] Last Admin: 03/30/22 08:31 Dose: 4 mg Documented By: Admin: 03/30/22 04:49 Dose: 4 mg Documented By: Admin: 03/29/22 20:21 Dose: 4 mg Documented By: Admin: 03/29/22 14:16 Dose: 4 mg Documented By: RAMANDEEP Furosemide (Furosemide 40 Mg/4 Ml Vial) 40 mg IV NOW ONE Stop: 03/28/22 17:49 Last Admin: 03/28/22 18:26 Dose: 40 mg Documented By: AT Furosemide (Furosemide 40 Mg/4 Ml Vial) 40 mg IV NOW ONE Stop: 03/29/22 03:07 Last Admin: 03/29/22 03:19 Dose: 40 mg Documented By: SORIN Glimepiride (Glimepiride 2 Mg Tablet) 2 mg PO BID [facility] Stop: 04/03/22 10:59 Last Admin: 03/30/22 08:26 Dose: 2 mg Documented By: Admin: 03/29/22 20:20 Dose: 2 mg Documented By: Admin: 03/29/22 12:27 Dose: 2 mg Documented By: RAMANDEEP Hydromorphone HCl (Hydromorphone 0.5 Mg Inj) 0.5 mg IV NOW ONE Stop: 03/28/22 19:31 Last Admin: 03/28/22 18:54 Dose: 0.5 mg Documented By: AT Hydromorphone HCl (Hydromorphone 0.5 Mg Inj) 0.5 mg IV NOW ONE Stop: 03/28/22 19:51 Last Admin: 03/28/22 19:57 Dose: 0.5 mg Documented By: ANATOLIY Hydromorphone HCl (Hydromorphone 0.5 Mg Inj) 0.5 mg IV NOW ONE Stop: 03/28/22 22:22 Last Admin: 03/28/22 22:44 Dose: 0.5 mg Documented By: CAROLINE Hydromorphone HCl (Hydromorphone 0.5 Mg Inj) 0.5 mg IV Q4H PRN PRN Reason: Pain, Moderate (4-6) Last Admin: 03/30/22 12:30 Dose: 0.5 mg Documented By: Admin: 03/30/22 04:50 Dose: 0.5 mg Documented By: Admin: 03/29/22 14:16 Dose: 0.5 mg Documented By: Admin: 03/29/22 08:18 Dose: 0.5 mg Documented By: Admin: 03/29/22 01:56 Dose: 0.5 mg Documented By: SORIN Levofloxacin (Levaquin) 750 mg in 150 mls @ 100 mls/hr IV NOW ONE Stop: 03/28/22 19:17 Last Infusion: 03/28/22 20:24 Dose: 0 mls/hr Documented By: Admin: 03/28/22 18:30 Dose: 100 mls/hr Documented By: NYASIA Magnesium Sulfate (Magnesium Sulfate) 2 gm in 50 mls @ 150 mls/hr IV NOW ONE Stop: 03/28/22 18:07 Last Infusion: 03/28/22 18:40 Dose: 0 mls/hr Documented By: NYASIA Co-signed By: WICHO Admin: 03/28/22 18:18 Dose: 150 mls/hr Documented By: NYASIA Co-signed By: CAROLINE Levofloxacin (Levaquin) 750 mg in 150 mls @ 100 mls/hr IV Q24H [facility] Last Infusion: 03/29/22 19:37 Dose: 0 mls/hr Documented By: Admin: 03/29/22 17:59 Dose: 100 mls/hr Documented By: RAMANDEEP Sodium Chloride (Normal Saline 0.9%) 1,000 mls @ 200 mls/hr IV CONT ONE Stop: 03/30/22 00:36 Last Infusion: 03/30/22 00:38 Dose: 0 mls/hr Documented By: Admin: 03/29/22 19:38 Dose: 200 mls/hr Documented By: CTS Sodium Chloride (Normal Saline 0.9%) 1,000 mls @ 100 mls/hr IV CONT [facility] Last Infusion: 03/30/22 12:30 Dose: 100 mls/hr Documented By: Admin: 03/30/22 09:18 Dose: 100 mls/hr Documented By: CTS Magnesium Sulfate (Magnesium Sulfate) 2 gm in 50 mls @ 25 mls/hr IV NOW ONE Stop: 03/30/22 12:31 Last Infusion: 03/30/22 12:31 Dose: 0 mls/hr Documented By: RAMANDEEP Co-signed By: BS Admin: 03/30/22 10:40 Dose: 25 mls/hr Documented By: RAMANDEEP Co-signed By: RB Lidocaine HCl (Lidocaine 2% Inj Mdv 20ml) 1 ml SUBCUT NOW ONE Stop: 03/28/22 18:29 Last Admin: 03/28/22 19:33 Dose: Not Given Documented By: AT Lidocaine HCl (Lidocaine 2% Inj Mdv 20ml) 1 ml SUBCUT NOW ONE Stop: 03/29/22 00:59 Last Admin: 03/29/22 01:36 Dose: 1 ml Documented By: RL Lidocaine HCl (Lidocaine 2% (Glydo) 6 Ml Gel) 6 ml TOP NOW ONE Stop: 03/30/22 09:38 Last Admin: 03/30/22 09:40 Dose: 6 ml Documented By: CTS Lisinopril (Lisinopril 20 Mg Tablet) 40 mg PO NOW [facility] Stop: 04/03/22 10:59 Lisinopril (Lisinopril 20 Mg Tablet) 40 mg PO DAILY [facility] Last Admin: 03/30/22 08:27 Dose: 40 mg Documented By: Admin: 03/29/22 12:27 Dose: 40 mg Documented By: CTS Magnesium Oxide (Magnesium Oxide 400 Mg Tablet) 400 mg PO BID [facility] Stop: 04/03/22 10:59 Last Admin: 03/30/22 08:25 Dose: 400 mg Documented By: Admin: 03/29/22 20:20 Dose: 400 mg Documented By: Admin: 03/29/22 12:28 Dose: 400 mg Documented By: CTS Metformin HCl (Metformin Hcl 500 Mg Tablet) 1,000 mg PO 0800,1700 [facility] Stop: 04/03/22 11:00 Last Admin: 03/30/22 08:27 Dose: 1,000 mg Documented By: Admin: 03/29/22 18:37 Dose: 1,000 mg Documented By: Admin: 03/29/22 12:28 Dose: 1,000 mg Documented By: RAMANDEEP Metoprolol Tartrate (Metoprolol Tartrate 5 Mg/5 Ml Inj) 5 mg IV NOW ONE Stop: 03/28/22 20:57 Last Admin: 03/28/22 21:05 Dose: 5 mg Documented By: CAROLINE Metoprolol Tartrate (Metoprolol Ir 25 Mg Tablet) 12.5 mg PO BID [facility] Stop: 04/03/22 11:14 Last Admin: 03/30/22 08:28 Dose: 12.5 mg Documented By: Admin: 03/29/22 20:21 Dose: 12.5 mg Documented By: Admin: 03/29/22 12:29 Dose: 12.5 mg Documented By: CTS Morphine Sulfate (Morphine Er 15 Mg Tablet) 15 mg PO BID [facility] Last Admin: 03/30/22 08:26 Dose: 15 mg Documented By: CTS Morphine Sulfate (Morphine Er 15 Mg Tablet) 15 mg PO NOW ONE Stop: 03/29/22 17:01 Last Admin: 03/29/22 17:59 Dose: 15 mg Documented By: RAMANDEEP Pantoprazole Sodium (Pantoprazole 40 Mg Vial) 40 mg IV DAILY [facility] Stop: 04/03/22 11:14 Last Admin: 03/29/22 12:42 Dose: Not Given Documented By: RAMANDEEP Pantoprazole Sodium (Pantoprazole Dr 40 Mg Tablet) 40 mg PO DAILY [facility] Last Admin: 03/30/22 08:23 Dose: 40 mg Documented By: Admin: 03/29/22 12:28 Dose: 40 mg Documented By: RAMANDEEP Propofol (Propofol 200 Mg/20 Ml Vial) 75 mg 1 mg/kg (75 mg) IV NOW ONE Stop: 03/29/22 00:58 Last Admin: 03/29/22 01:35 Dose: Not Given Documented By: RL Propofol (Propofol 200 Mg/20 Ml Vial) 125 mg IV NOW ONE Stop: 03/29/22 01:16 Last Admin: 03/29/22 01:35 Dose: 125 mg Documented By: SORIN Sennosides (Sennosides 8.6 Mg Tablet) 8.6 mg PO BEDTIME [facility] Last Admin: 03/29/22 20:22 Dose: 8.6 mg Documented By: RAMANDEEP Tamsulosin HCl (Tamsulosin 0.4 Mg Capsule) 0.4 mg PO NOW [facility] Stop: 04/03/22 10:59 Tamsulosin HCl (Tamsulosin 0.4 Mg Capsule) 0.4 mg PO DAILY [facility] Last Admin: 03/30/22 08:26 Dose: 0.4 mg Documented By: Admin: 03/29/22 12:28 Dose: 0.4 mg Documented By: RAMANDEEP Zonisamide (Zonisamide 100 Mg Capsule) 200 mg PO BEDTIME [facility] Stop: 04/03/22 20:59 Last Admin: 03/29/22 20:20 Dose: 200 mg Documented By: RAMANDEEP Vital Signs Vital signs: Vital Signs - 8 hr 03/30/22 04:00 03/30/22 04:00 03/30/22 04:30 Temperature Pulse Rate 61 61 Respiratory Rate 26 H 25 H Blood Pressure 158/67 H Pulse Oximetry 92 91 Oxygen Delivery Method Oxygen Flow Rate 2 2 03/30/22 05:00 03/30/22 05:00 03/30/22 05:30 Temperature Pulse Rate 72 71 Respiratory Rate 22 23 Blood Pressure 147/73 H Pulse Oximetry 91 93 Oxygen Delivery Method Oxygen Flow Rate 2 2 03/30/22 06:00 03/30/22 06:00 03/30/22 06:30 Temperature Pulse Rate 68 68 Respiratory Rate 23 22 Blood Pressure 128/59 L Pulse Oximetry 94 95 Oxygen Delivery Method Oxygen Flow Rate 2 2 03/30/22 07:00 03/30/22 07:00 03/30/22 07:30 Temperature Pulse Rate 70 70 Respiratory Rate 21 32 H Blood Pressure 137/72 Pulse Oximetry 96 94 Oxygen Delivery Method Oxygen Flow Rate 2 03/30/22 08:27 03/30/22 08:00 03/30/22 08:30 Temperature Pulse Rate 73 72 75 Respiratory Rate 25 H 20 Blood Pressure 137/72 Pulse Oximetry 93 90 L Oxygen Delivery Method Nasal Cannula Nasal Cannula Oxygen Flow Rate 2 2 03/30/22 09:00 03/30/22 09:00 03/30/22 09:28 Temperature 97.5 F L Pulse Rate 71 Respiratory Rate 26 H Blood Pressure 124/57 L Pulse Oximetry 92 Oxygen Delivery Method Nasal Cannula Oxygen Flow Rate 2 03/30/22 09:30 03/30/22 10:00 03/30/22 10:00 Temperature Pulse Rate 68 70 Respiratory Rate 25 H 23 Blood Pressure 160/72 H Pulse Oximetry 93 93 Oxygen Delivery Method Oxygen Flow Rate 2 03/30/22 10:30 03/30/22 11:00 03/30/22 11:00 Temperature Pulse Rate 68 70 Respiratory Rate 20 26 H Blood Pressure 150/81 H Pulse Oximetry 95 94 Oxygen Delivery Method Oxygen Flow Rate 03/30/22 11:30 Temperature Pulse Rate 70 Respiratory Rate 22 Blood Pressure Pulse Oximetry 93 Oxygen Delivery Method Oxygen Flow Rate <Mona Naranjo, - Last Filed: 04/09/22 11:25> Orders Ordered: Discontinued Medications Dexamethasone (Dexamethasone 10 Mg/Ml Vial) 10 mg IV NOW ONE Stop: 03/29/22 07:37 Last Admin: 03/29/22 07:45 Dose: 10 mg Documented By: RL Dexamethasone (Dexamethasone 4 Mg Tablet) 4 mg PO Q6H [facility] Last Admin: 03/30/22 08:31 Dose: 4 mg Documented By: Admin: 03/30/22 04:49 Dose: 4 mg Documented By: Admin: 03/29/22 20:21 Dose: 4 mg Documented By: Admin: 03/29/22 14:16 Dose: 4 mg Documented By: CTS Furosemide (Furosemide 40 Mg/4 Ml Vial) 40 mg IV NOW ONE Stop: 03/28/22 17:49 Last Admin: 03/28/22 18:26 Dose: 40 mg Documented By: AT Furosemide (Furosemide 40 Mg/4 Ml Vial) 40 mg IV NOW ONE Stop: 03/29/22 03:07 Last Admin: 03/29/22 03:19 Dose: 40 mg Documented By: RL Glimepiride (Glimepiride 2 Mg Tablet) 2 mg PO BID [facility] Stop: 04/03/22 10:59 Last Admin: 03/30/22 08:26 Dose: 2 mg Documented By: Admin: 03/29/22 20:20 Dose: 2 mg Documented By: Admin: 03/29/22 12:27 Dose: 2 mg Documented By: CTS Hydromorphone HCl (Hydromorphone 0.5 Mg Inj) 0.5 mg IV NOW ONE Stop: 03/28/22 19:31 Last Admin: 03/28/22 18:54 Dose: 0.5 mg Documented By: AT Hydromorphone HCl (Hydromorphone 0.5 Mg Inj) 0.5 mg IV NOW ONE Stop: 03/28/22 19:51 Last Admin: 03/28/22 19:57 Dose: 0.5 mg Documented By: ANATOLIY Hydromorphone HCl (Hydromorphone 0.5 Mg Inj) 0.5 mg IV NOW ONE Stop: 03/28/22 22:22 Last Admin: 03/28/22 22:44 Dose: 0.5 mg Documented By: CAROLINE Hydromorphone HCl (Hydromorphone 0.5 Mg Inj) 0.5 mg IV Q4H PRN PRN Reason: Pain, Moderate (4-6) Last Admin: 03/30/22 12:30 Dose: 0.5 mg Documented By: Admin: 03/30/22 04:50 Dose: 0.5 mg Documented By: Admin: 03/29/22 14:16 Dose: 0.5 mg Documented By: Admin: 03/29/22 08:18 Dose: 0.5 mg Documented By: Admin: 03/29/22 01:56 Dose: 0.5 mg Documented By: SORIN Levofloxacin (Levaquin) 750 mg in 150 mls @ 100 mls/hr IV NOW ONE Stop: 03/28/22 19:17 Last Infusion: 03/28/22 20:24 Dose: 0 mls/hr Documented By: Admin: 03/28/22 18:30 Dose: 100 mls/hr Documented By: NYASIA Magnesium Sulfate (Magnesium Sulfate) 2 gm in 50 mls @ 150 mls/hr IV NOW ONE Stop: 03/28/22 18:07 Last Infusion: 03/28/22 18:40 Dose: 0 mls/hr Documented By: NYASIA Co-signed By: WICHO Admin: 03/28/22 18:18 Dose: 150 mls/hr Documented By: NYASIA Co-signed By: CAROLINE Levofloxacin (Levaquin) 750 mg in 150 mls @ 100 mls/hr IV Q24H [facility] Last Infusion: 03/29/22 19:37 Dose: 0 mls/hr Documented By: Admin: 03/29/22 17:59 Dose: 100 mls/hr Documented By: RAMANDEEP Sodium Chloride (Normal Saline 0.9%) 1,000 mls @ 200 mls/hr IV CONT ONE Stop: 03/30/22 00:36 Last Infusion: 03/30/22 00:38 Dose: 0 mls/hr Documented By: Admin: 03/29/22 19:38 Dose: 200 mls/hr Documented By: CTS Sodium Chloride (Normal Saline 0.9%) 1,000 mls @ 100 mls/hr IV CONT [facility]OLF Last Infusion: 03/30/22 12:30 Dose: 100 mls/hr Documented By: Admin: 03/30/22 09:18 Dose: 100 mls/hr Documented By: CTS Magnesium Sulfate (Magnesium Sulfate) 2 gm in 50 mls @ 25 mls/hr IV NOW ONE Stop: 03/30/22 12:31 Last Infusion: 03/30/22 12:31 Dose: 0 mls/hr Documented By: RAMANDEEP Co-signed By: BS Admin: 03/30/22 10:40 Dose: 25 mls/hr Documented By: RAMANDEEP Co-signed By: RB Lidocaine HCl (Lidocaine 2% Inj Mdv 20ml) 1 ml SUBCUT NOW ONE Stop: 03/28/22 18:29 Last Admin: 03/28/22 19:33 Dose: Not Given Documented By: AT Lidocaine HCl (Lidocaine 2% Inj Mdv 20ml) 1 ml SUBCUT NOW ONE Stop: 03/29/22 00:59 Last Admin: 03/29/22 01:36 Dose: 1 ml Documented By: RL Lidocaine HCl (Lidocaine 2% (Glydo) 6 Ml Gel) 6 ml TOP NOW ONE Stop: 03/30/22 09:38 Last Admin: 03/30/22 09:40 Dose: 6 ml Documented By: CTS Lisinopril (Lisinopril 20 Mg Tablet) 40 mg PO NOW [facility] Stop: 04/03/22 10:59 Lisinopril (Lisinopril 20 Mg Tablet) 40 mg PO DAILY [facility] Last Admin: 03/30/22 08:27 Dose: 40 mg Documented By: Admin: 03/29/22 12:27 Dose: 40 mg Documented By: CTS Magnesium Oxide (Magnesium Oxide 400 Mg Tablet) 400 mg PO BID [facility] Stop: 04/03/22 10:59 Last Admin: 03/30/22 08:25 Dose: 400 mg Documented By: Admin: 03/29/22 20:20 Dose: 400 mg Documented By: Admin: 03/29/22 12:28 Dose: 400 mg Documented By: CTS Metformin HCl (Metformin Hcl 500 Mg Tablet) 1,000 mg PO 0800,1700 [facility] Stop: 04/03/22 11:00 Last Admin: 03/30/22 08:27 Dose: 1,000 mg Documented By: Admin: 03/29/22 18:37 Dose: 1,000 mg Documented By: Admin: 03/29/22 12:28 Dose: 1,000 mg Documented By: CTS Metoprolol Tartrate (Metoprolol Tartrate 5 Mg/5 Ml Inj) 5 mg IV NOW ONE Stop: 03/28/22 20:57 Last Admin: 03/28/22 21:05 Dose: 5 mg Documented By: CAROLINE Metoprolol Tartrate (Metoprolol Ir 25 Mg Tablet) 12.5 mg PO BID [facility] Stop: 04/03/22 11:14 Last Admin: 03/30/22 08:28 Dose: 12.5 mg Documented By: Admin: 03/29/22 20:21 Dose: 12.5 mg Documented By: Admin: 03/29/22 12:29 Dose: 12.5 mg Documented By: RAMANDEEP Morphine Sulfate (Morphine Er 15 Mg Tablet) 15 mg PO BID [facility] Last Admin: 03/30/22 08:26 Dose: 15 mg Documented By: CTS Morphine Sulfate (Morphine Er 15 Mg Tablet) 15 mg PO NOW ONE Stop: 03/29/22 17:01 Last Admin: 03/29/22 17:59 Dose: 15 mg Documented By: RAMANDEEP Pantoprazole Sodium (Pantoprazole 40 Mg Vial) 40 mg IV DAILY [facility] Stop: 04/03/22 11:14 Last Admin: 03/29/22 12:42 Dose: Not Given Documented By: RAMANDEEP Pantoprazole Sodium (Pantoprazole Dr 40 Mg Tablet) 40 mg PO DAILY [facility] Last Admin: 03/30/22 08:23 Dose: 40 mg Documented By: Admin: 03/29/22 12:28 Dose: 40 mg Documented By: RAMANDEEP Propofol (Propofol 200 Mg/20 Ml Vial) 75 mg 1 mg/kg (75 mg) IV NOW ONE Stop: 03/29/22 00:58 Last Admin: 03/29/22 01:35 Dose: Not Given Documented By: SORIN Propofol (Propofol 200 Mg/20 Ml Vial) 125 mg IV NOW ONE Stop: 03/29/22 01:16 Last Admin: 03/29/22 01:35 Dose: 125 mg Documented By: SORIN Sennosides (Sennosides 8.6 Mg Tablet) 8.6 mg PO BEDTIME [facility] Last Admin: 03/29/22 20:22 Dose: 8.6 mg Documented By: RAMANDEEP Tamsulosin HCl (Tamsulosin 0.4 Mg Capsule) 0.4 mg PO NOW [facility] Stop: 04/03/22 10:59 Tamsulosin HCl (Tamsulosin 0.4 Mg Capsule) 0.4 mg PO DAILY [facility] Last Admin: 03/30/22 08:26 Dose: 0.4 mg Documented By: Admin: 03/29/22 12:28 Dose: 0.4 mg Documented By: RAMANDEEP Zonisamide (Zonisamide 100 Mg Capsule) 200 mg PO BEDTIME [facility] Stop: 04/03/22 20:59 Last Admin: 03/29/22 20:20 Dose: 200 mg Documented By: RAMANDEEP Vital Signs Vital signs: Vital Signs - 8 hr 03/30/22 04:00 03/30/22 04:00 03/30/22 04:30 Temperature Pulse Rate 61 61 Respiratory Rate 26 H 25 H Blood Pressure 158/67 H Pulse Oximetry 92 91 Oxygen Delivery Method Oxygen Flow Rate 2 2 03/30/22 05:00 03/30/22 05:00 03/30/22 05:30 Temperature Pulse Rate 72 71 Respiratory Rate 22 23 Blood Pressure 147/73 H Pulse Oximetry 91 93 Oxygen Delivery Method Oxygen Flow Rate 2 2 03/30/22 06:00 03/30/22 06:00 03/30/22 06:30 Temperature Pulse Rate 68 68 Respiratory Rate 23 22 Blood Pressure 128/59 L Pulse Oximetry 94 95 Oxygen Delivery Method Oxygen Flow Rate 2 2 03/30/22 07:00 03/30/22 07:00 03/30/22 07:30 Temperature Pulse Rate 70 70 Respiratory Rate 21 32 H Blood Pressure 137/72 Pulse Oximetry 96 94 Oxygen Delivery Method Oxygen Flow Rate 2 03/30/22 08:27 03/30/22 08:00 03/30/22 08:30 Temperature Pulse Rate 73 72 75 Respiratory Rate 25 H 20 Blood Pressure 137/72 Pulse Oximetry 93 90 L Oxygen Delivery Method Nasal Cannula Nasal Cannula Oxygen Flow Rate 2 2 03/30/22 09:00 03/30/22 09:00 03/30/22 09:28 Temperature 97.5 F L Pulse Rate 71 Respiratory Rate 26 H Blood Pressure 124/57 L Pulse Oximetry 92 Oxygen Delivery Method Nasal Cannula Oxygen Flow Rate 2 03/30/22 09:30 03/30/22 10:00 03/30/22 10:00 Temperature Pulse Rate 68 70 Respiratory Rate 25 H 23 Blood Pressure 160/72 H Pulse Oximetry 93 93 Oxygen Delivery Method Oxygen Flow Rate 2 03/30/22 10:30 03/30/22 11:00 03/30/22 11:00 Temperature Pulse Rate 68 70 Respiratory Rate 20 26 H Blood Pressure 150/81 H Pulse Oximetry 95 94 Oxygen Delivery Method Oxygen Flow Rate 03/30/22 11:30 Temperature Pulse Rate 70 Respiratory Rate 22 Blood Pressure Pulse Oximetry 93 Oxygen Delivery Method Oxygen Flow Rate <Blu Aguilar, DO - Last Filed: 03/30/22 11:55> Orders Ordered: Discontinued Medications Dexamethasone (Dexamethasone 10 Mg/Ml Vial) 10 mg IV NOW ONE Stop: 03/29/22 07:37 Last Admin: 03/29/22 07:45 Dose: 10 mg Documented By: RL Dexamethasone (Dexamethasone 4 Mg Tablet) 4 mg PO Q6H [facility] Last Admin: 03/30/22 08:31 Dose: 4 mg Documented By: Admin: 03/30/22 04:49 Dose: 4 mg Documented By: Admin: 03/29/22 20:21 Dose: 4 mg Documented By: Admin: 03/29/22 14:16 Dose: 4 mg Documented By: CTS Furosemide (Furosemide 40 Mg/4 Ml Vial) 40 mg IV NOW ONE Stop: 03/28/22 17:49 Last Admin: 03/28/22 18:26 Dose: 40 mg Documented By: AT Furosemide (Furosemide 40 Mg/4 Ml Vial) 40 mg IV NOW ONE Stop: 03/29/22 03:07 Last Admin: 03/29/22 03:19 Dose: 40 mg Documented By: RL Glimepiride (Glimepiride 2 Mg Tablet) 2 mg PO BID [facility] Stop: 04/03/22 10:59 Last Admin: 03/30/22 08:26 Dose: 2 mg Documented By: Admin: 03/29/22 20:20 Dose: 2 mg Documented By: Admin: 03/29/22 12:27 Dose: 2 mg Documented By: CTS Hydromorphone HCl (Hydromorphone 0.5 Mg Inj) 0.5 mg IV NOW ONE Stop: 03/28/22 19:31 Last Admin: 03/28/22 18:54 Dose: 0.5 mg Documented By: NYASIA Hydromorphone HCl (Hydromorphone 0.5 Mg Inj) 0.5 mg IV NOW ONE Stop: 03/28/22 19:51 Last Admin: 03/28/22 19:57 Dose: 0.5 mg Documented By: ANATOLIY Hydromorphone HCl (Hydromorphone 0.5 Mg Inj) 0.5 mg IV NOW ONE Stop: 03/28/22 22:22 Last Admin: 03/28/22 22:44 Dose: 0.5 mg Documented By: CAROLINE Hydromorphone HCl (Hydromorphone 0.5 Mg Inj) 0.5 mg IV Q4H PRN PRN Reason: Pain, Moderate (4-6) Last Admin: 03/30/22 12:30 Dose: 0.5 mg Documented By: Admin: 03/30/22 04:50 Dose: 0.5 mg Documented By: Admin: 03/29/22 14:16 Dose: 0.5 mg Documented By: Admin: 03/29/22 08:18 Dose: 0.5 mg Documented By: Admin: 03/29/22 01:56 Dose: 0.5 mg Documented By: SORIN Levofloxacin (Levaquin) 750 mg in 150 mls @ 100 mls/hr IV NOW ONE Stop: 03/28/22 19:17 Last Infusion: 03/28/22 20:24 Dose: 0 mls/hr Documented By: Admin: 03/28/22 18:30 Dose: 100 mls/hr Documented By: NYASIA Magnesium Sulfate (Magnesium Sulfate) 2 gm in 50 mls @ 150 mls/hr IV NOW ONE Stop: 03/28/22 18:07 Last Infusion: 03/28/22 18:40 Dose: 0 mls/hr Documented By: AT Co-signed By: WICHO Admin: 03/28/22 18:18 Dose: 150 mls/hr Documented By: NYASIA Co-signed By: CAROLINE Levofloxacin (Levaquin) 750 mg in 150 mls @ 100 mls/hr IV Q24H [facility] Last Infusion: 03/29/22 19:37 Dose: 0 mls/hr Documented By: Admin: 03/29/22 17:59 Dose: 100 mls/hr Documented By: RAMANDEEP Sodium Chloride (Normal Saline 0.9%) 1,000 mls @ 200 mls/hr IV CONT ONE Stop: 03/30/22 00:36 Last Infusion: 03/30/22 00:38 Dose: 0 mls/hr Documented By: Admin: 03/29/22 19:38 Dose: 200 mls/hr Documented By: CTS Sodium Chloride (Normal Saline 0.9%) 1,000 mls @ 100 mls/hr IV CONT [facility]OLF Last Infusion: 03/30/22 12:30 Dose: 100 mls/hr Documented By: Admin: 03/30/22 09:18 Dose: 100 mls/hr Documented By: CTS Magnesium Sulfate (Magnesium Sulfate) 2 gm in 50 mls @ 25 mls/hr IV NOW ONE Stop: 03/30/22 12:31 Last Infusion: 03/30/22 12:31 Dose: 0 mls/hr Documented By: RAMANDEEP Co-signed By: BS Admin: 03/30/22 10:40 Dose: 25 mls/hr Documented By: RAMANDEEP Co-signed By: RB Lidocaine HCl (Lidocaine 2% Inj Mdv 20ml) 1 ml SUBCUT NOW ONE Stop: 03/28/22 18:29 Last Admin: 03/28/22 19:33 Dose: Not Given Documented By: AT Lidocaine HCl (Lidocaine 2% Inj Mdv 20ml) 1 ml SUBCUT NOW ONE Stop: 03/29/22 00:59 Last Admin: 03/29/22 01:36 Dose: 1 ml Documented By: RL Lidocaine HCl (Lidocaine 2% (Glydo) 6 Ml Gel) 6 ml TOP NOW ONE Stop: 03/30/22 09:38 Last Admin: 03/30/22 09:40 Dose: 6 ml Documented By: CTS Lisinopril (Lisinopril 20 Mg Tablet) 40 mg PO NOW [facility] Stop: 04/03/22 10:59 Lisinopril (Lisinopril 20 Mg Tablet) 40 mg PO DAILY [facility] Last Admin: 03/30/22 08:27 Dose: 40 mg Documented By: Admin: 03/29/22 12:27 Dose: 40 mg Documented By: CTS Magnesium Oxide (Magnesium Oxide 400 Mg Tablet) 400 mg PO BID [facility] Stop: 04/03/22 10:59 Last Admin: 03/30/22 08:25 Dose: 400 mg Documented By: Admin: 03/29/22 20:20 Dose: 400 mg Documented By: Admin: 03/29/22 12:28 Dose: 400 mg Documented By: CTS Metformin HCl (Metformin Hcl 500 Mg Tablet) 1,000 mg PO 0800,1700 [facility] Stop: 04/03/22 11:00 Last Admin: 03/30/22 08:27 Dose: 1,000 mg Documented By: Admin: 03/29/22 18:37 Dose: 1,000 mg Documented By: Admin: 03/29/22 12:28 Dose: 1,000 mg Documented By: CTS Metoprolol Tartrate (Metoprolol Tartrate 5 Mg/5 Ml Inj) 5 mg IV NOW ONE Stop: 03/28/22 20:57 Last Admin: 03/28/22 21:05 Dose: 5 mg Documented By: CAROLINE Metoprolol Tartrate (Metoprolol Ir 25 Mg Tablet) 12.5 mg PO BID [facility] Stop: 04/03/22 11:14 Last Admin: 03/30/22 08:28 Dose: 12.5 mg Documented By: Admin: 03/29/22 20:21 Dose: 12.5 mg Documented By: Admin: 03/29/22 12:29 Dose: 12.5 mg Documented By: CTS Morphine Sulfate (Morphine Er 15 Mg Tablet) 15 mg PO BID [facility] Last Admin: 03/30/22 08:26 Dose: 15 mg Documented By: CTS Morphine Sulfate (Morphine Er 15 Mg Tablet) 15 mg PO NOW ONE Stop: 03/29/22 17:01 Last Admin: 03/29/22 17:59 Dose: 15 mg Documented By: RAMANDEEP Pantoprazole Sodium (Pantoprazole 40 Mg Vial) 40 mg IV DAILY [facility] Stop: 04/03/22 11:14 Last Admin: 03/29/22 12:42 Dose: Not Given Documented By: CTS Pantoprazole Sodium (Pantoprazole Dr 40 Mg Tablet) 40 mg PO DAILY [facility] Last Admin: 03/30/22 08:23 Dose: 40 mg Documented By: Admin: 03/29/22 12:28 Dose: 40 mg Documented By: CTS Propofol (Propofol 200 Mg/20 Ml Vial) 75 mg 1 mg/kg (75 mg) IV NOW ONE Stop: 03/29/22 00:58 Last Admin: 03/29/22 01:35 Dose: Not Given Documented By: SORIN Propofol (Propofol 200 Mg/20 Ml Vial) 125 mg IV NOW ONE Stop: 03/29/22 01:16 Last Admin: 03/29/22 01:35 Dose: 125 mg Documented By: SORIN Sennosides (Sennosides 8.6 Mg Tablet) 8.6 mg PO BEDTIME [facility] Last Admin: 03/29/22 20:22 Dose: 8.6 mg Documented By: RAMANDEEP Tamsulosin HCl (Tamsulosin 0.4 Mg Capsule) 0.4 mg PO NOW [facility] Stop: 04/03/22 10:59 Tamsulosin HCl (Tamsulosin 0.4 Mg Capsule) 0.4 mg PO DAILY [facility] Last Admin: 03/30/22 08:26 Dose: 0.4 mg Documented By: Admin: 03/29/22 12:28 Dose: 0.4 mg Documented By: RAMANDEEP Zonisamide (Zonisamide 100 Mg Capsule) 200 mg PO BEDTIME [facility] Stop: 04/03/22 20:59 Last Admin: 03/29/22 20:20 Dose: 200 mg Documented By: RAMANDEEP Vital Signs Vital signs: Vital Signs - 8 hr 03/30/22 04:00 03/30/22 04:00 03/30/22 04:30 Temperature Pulse Rate 61 61 Respiratory Rate 26 H 25 H Blood Pressure 158/67 H Pulse Oximetry 92 91 Oxygen Delivery Method Oxygen Flow Rate 2 2 03/30/22 05:00 03/30/22 05:00 03/30/22 05:30 Temperature Pulse Rate 72 71 Respiratory Rate 22 23 Blood Pressure 147/73 H Pulse Oximetry 91 93 Oxygen Delivery Method Oxygen Flow Rate 2 2 03/30/22 06:00 03/30/22 06:00 03/30/22 06:30 Temperature Pulse Rate 68 68 Respiratory Rate 23 22 Blood Pressure 128/59 L Pulse Oximetry 94 95 Oxygen Delivery Method Oxygen Flow Rate 2 2 03/30/22 07:00 03/30/22 07:00 03/30/22 07:30 Temperature Pulse Rate 70 70 Respiratory Rate 21 32 H Blood Pressure 137/72 Pulse Oximetry 96 94 Oxygen Delivery Method Oxygen Flow Rate 2 03/30/22 08:27 03/30/22 08:00 03/30/22 08:30 Temperature Pulse Rate 73 72 75 Respiratory Rate 25 H 20 Blood Pressure 137/72 Pulse Oximetry 93 90 L Oxygen Delivery Method Nasal Cannula Nasal Cannula Oxygen Flow Rate 2 2 03/30/22 09:00 03/30/22 09:00 03/30/22 09:28 Temperature 97.5 F L Pulse Rate 71 Respiratory Rate 26 H Blood Pressure 124/57 L Pulse Oximetry 92 Oxygen Delivery Method Nasal Cannula Oxygen Flow Rate 2 03/30/22 09:30 03/30/22 10:00 03/30/22 10:00 Temperature Pulse Rate 68 70 Respiratory Rate 25 H 23 Blood Pressure 160/72 H Pulse Oximetry 93 93 Oxygen Delivery Method Oxygen Flow Rate 2 03/30/22 10:30 03/30/22 11:00 03/30/22 11:00 Temperature Pulse Rate 68 70 Respiratory Rate 20 26 H Blood Pressure 150/81 H Pulse Oximetry 95 94 Oxygen Delivery Method Oxygen Flow Rate 03/30/22 11:30 Temperature Pulse Rate 70 Respiratory Rate 22 Blood Pressure Pulse Oximetry 93 Oxygen Delivery Method Oxygen Flow Rate Sepsis Evaluation (ED) <Zechariah Flores DO - Last Filed: 03/31/22 02:39> Triage Screening Sepsis Screen: No Definite Risk Level 1 - Infection Sepsis Infection Criteria Present: None <Blu Aguilar, DO - Last Filed: 03/30/22 11:55> Response It is my opinion that his patient have a likely infectious etiology for meeting sepsis criteria: Does Fluid calculation based on 30 mL/kg within 1hr of criteria: ABW used Antibiotics initiated within 1 hr of Sepis dx: Yes Tissue Perfusion Reassessed within 6 hrs of infusion start time: No MDM - Sepsis <Zechariah Flores, - Last Filed: 03/31/22 02:39> Lab Data Result diagrams: 03/30/22 09:07 03/30/22 09:07 Labs: Lab Results 03/28/22 03/28/22 03/28/22 Range/Units 16:55 16:55 16:55 WBC 18.3 H (4.5-11.0) X10^3/uL RBC 4.32 L (4.5-5.9) X10^6/uL Hgb 12.7 L (13.5-17.5) g/dL Hct 37.9 L (41-53) % MCV 87.8 (80-100) fL MCH 29.5 (26-34) PG MCHC 33.5 (30-36) % RDW 15.2 H (11.6-14.8) % Plt Count 328 (150-400) X10^3/uL Neut % (Auto) 88.5 H (50-75) % Lymph % (Auto) 4.0 L (25-40) % Story % (Auto) 7.4 (3-14) % Eos % (Auto) 0.0 L (2-4) % Baso % (Auto) 0.1 (0-2) % Neut # (Auto) 17327 H (4767-2356) /uL Lymph # (Auto) 700 L (1227-5602) /uL Story # (Auto) 1400 H (0-900) /uL Eos # (Auto) 0 (0-450) /uL Baso # (Auto) 0 (0-100) /uL ABG pH (7.35-7.45) ABG pCO2 (35-45) mmHg ABG pO2 (80-100) mmHg ABG HCO3 (22-26) mmol/L ABG Total CO2 (21-31) mmol/L ABG O2 Saturation (95-100) % ABG Base Excess (-2-2) mmol/L FiO2 Sodium 133 L (137-145) mmol/L Potassium 4.6 (3.4-5.1) mmol/L Chloride 93 L (98-107) mmol/L Carbon Dioxide 21 L (22-32) mmol/L BUN 43 H (9-20) mg/dL Creatinine 1.13 (0.66-1.25) mg/dL Estimated GFR > 60 (>60) mL/min BUN/Creatinine Ratio 38.1 H (6-22) Glucose 214 H (80-110) mg/dL Lactate 3.4 H (0.7-2.1) mmol/L Calcium 8.8 (8.4-10.2) mg/dL Magnesium 0.6 L* (1.6-2.3) mg/dL Total Bilirubin 0.7 (0.2-1.3) mg/dL AST 56 (17-59) IU/L ALT 32 (<50) IU/L Alkaline Phosphatase 79 (38-126) U/L Total Creatine Kinase 835 H (55-170) U/L CK-MB (CK-2) 15.90 H (<2.37) ng/mL CK-MB (CK-2) Rel Index 1.9 (1.5-5.0) % Troponin I 0.056 H (0.01-0.034) ng/mL NT-Pro-B Natriuret Pep 3060 H (<125) pg/mL Total Protein 8.8 H (6.3-8.2) g/dL Albumin 4.5 (3.5-5.0) g/dL Globulin 4.3 H (1.7-4.1) g/dL Albumin/Globulin Ratio 1.0 (1.0-2.8) Procalcitonin (<0.5) ng/mL Urine Color Urine Appearance Urine pH (4.5-8.0) Ur Specific [place] (1.000-1.035) Urine Protein (Negative) Urine Glucose (UA) (Negative) g/dL Urine Ketones (NEGATIVE) Urine Occult Blood (Negative) Urine Nitrate (Negative) Urine Bilirubin (NEGATIVE) Urine Urobilinogen (0.2) E.U./dL Ur Leukocyte Esterase (NEGATIVE) Urine RBC (0-5/HPF) Urine WBC (0-5/HPF) Ur Squamous Epith Cells (0-5/HPF) Ur Transition Epith Cell (0-5/HPF) Ur Renal Epithelial Cell (0-1/HPF) Urine Bacteria (None) WBC Casts (None) Ur Culture Indicated? Chlamy pneumoniae PCR (Not Detect) Adenovirus (PCR) (Not Detect) B. pertussis DNA (PCR) (Not Detecte) B.parapertussis DNA PCR (Not Detecte) Coronavirus OC43 (PCR) (Not Detect) Coronavirus HKU1 (PCR) (Not Detect) Coronavirus 229E (PCR) (Not Detect) SARS-CoV-2 (PCR) (Not Detecte) Coronavirus NL63 (PCR) (Not Detect) Human Metapneumovir PCR (Not Detect) Influenza Type A (PCR) (Not Detect) Influenza Type B (PCR) (Not Detect) M. pneumoniae (PCR) (Not Detect) Parainfluenza 1 (PCR) (Not Detect) Parainfluenza 2 (PCR) (Not Detect) Parainfluenza 3 (PCR) (Not Detect) Parainfluenza 4 (PCR) (Not Detect) RSV (PCR) (Not Detect) Entero/Rhino (PCR) (Not Detect) 03/28/22 03/28/22 03/28/22 Range/Units 17:10 18:13 19:40 WBC (4.5-11.0) X10^3/uL RBC (4.5-5.9) X10^6/uL Hgb (13.5-17.5) g/dL Hct (41-53) % MCV (80-100) fL MCH (26-34) PG MCHC (30-36) % RDW (11.6-14.8) % Plt Count (150-400) X10^3/uL Neut % (Auto) (50-75) % Lymph % (Auto) (25-40) % Story % (Auto) (3-14) % Eos % (Auto) (2-4) % Baso % (Auto) (0-2) % Neut # (Auto) (5396-8589) /uL Lymph # (Auto) (5083-6739) /uL Story # (Auto) (0-900) /uL Eos # (Auto) (0-450) /uL Baso # (Auto) (0-100) /uL ABG pH 7.39 (7.35-7.45) ABG pCO2 32.2 L (35-45) mmHg ABG pO2 77 L (80-100) mmHg ABG HCO3 20 L (22-26) mmol/L ABG Total CO2 21 (21-31) mmol/L ABG O2 Saturation 95 (95-100) % ABG Base Excess -5.0 L (-2-2) mmol/L FiO2 28 Sodium (137-145) mmol/L Potassium (3.4-5.1) mmol/L Chloride (98-107) mmol/L Carbon Dioxide (22-32) mmol/L BUN (9-20) mg/dL Creatinine (0.66-1.25) mg/dL Estimated GFR (>60) mL/min BUN/Creatinine Ratio (6-22) Glucose (80-110) mg/dL Lactate 1.8 (0.7-2.1) mmol/L Calcium (8.4-10.2) mg/dL Magnesium (1.6-2.3) mg/dL Total Bilirubin (0.2-1.3) mg/dL AST (17-59) IU/L ALT (<50) IU/L Alkaline Phosphatase (38-126) U/L Total Creatine Kinase (55-170) U/L CK-MB (CK-2) (<2.37) ng/mL CK-MB (CK-2) Rel Index (1.5-5.0) % Troponin I (0.01-0.034) ng/mL NT-Pro-B Natriuret Pep (<125) pg/mL Total Protein (6.3-8.2) g/dL Albumin (3.5-5.0) g/dL Globulin (1.7-4.1) g/dL Albumin/Globulin Ratio (1.0-2.8) Procalcitonin (<0.5) ng/mL Urine Color Urine Appearance Urine pH (4.5-8.0) Ur Specific [place] (1.000-1.035) Urine Protein (Negative) Urine Glucose (UA) (Negative) g/dL Urine Ketones (NEGATIVE) Urine Occult Blood (Negative) Urine Nitrate (Negative) Urine Bilirubin (NEGATIVE) Urine Urobilinogen (0.2) E.U./dL Ur Leukocyte Esterase (NEGATIVE) Urine RBC (0-5/HPF) Urine WBC (0-5/HPF) Ur Squamous Epith Cells (0-5/HPF) Ur Transition Epith Cell (0-5/HPF) Ur Renal Epithelial Cell (0-1/HPF) Urine Bacteria (None) WBC Casts (None) Ur Culture Indicated? Chlamy pneumoniae PCR Not detected (Not Detect) Adenovirus (PCR) Not detected (Not Detect) B. pertussis DNA (PCR) Not detected (Not Detecte) B.parapertussis DNA PCR Not detected (Not Detecte) Coronavirus OC43 (PCR) Not detected (Not Detect) Coronavirus HKU1 (PCR) Not detected (Not Detect) Coronavirus 229E (PCR) Not detected (Not Detect) SARS-CoV-2 (PCR) Not detected (Not Detecte) Coronavirus NL63 (PCR) Not detected (Not Detect) Human Metapneumovir PCR Not detected (Not Detect) Influenza Type A (PCR) Not detected (Not Detect) Influenza Type B (PCR) Not detected (Not Detect) M. pneumoniae (PCR) Not detected (Not Detect) Parainfluenza 1 (PCR) Not detected (Not Detect) Parainfluenza 2 (PCR) Not detected (Not Detect) Parainfluenza 3 (PCR) Not detected (Not Detect) Parainfluenza 4 (PCR) Not detected (Not Detect) RSV (PCR) Not detected (Not Detect) Entero/Rhino (PCR) Detected H (Not Detect) 03/28/22 03/28/22 03/28/22 Range/Units 19:40 19:40 19:40 WBC 15.7 H (4.5-11.0) X10^3/uL RBC 3.99 L (4.5-5.9) X10^6/uL Hgb 12.0 L (13.5-17.5) g/dL Hct 34.6 L (41-53) % MCV 86.7 (80-100) fL MCH 29.9 (26-34) PG MCHC 34.5 (30-36) % RDW 14.9 H (11.6-14.8) % Plt Count 287 (150-400) X10^3/uL Neut % (Auto) 88.0 H (50-75) % Lymph % (Auto) 4.5 L (25-40) % Story % (Auto) 7.4 (3-14) % Eos % (Auto) 0.0 L (2-4) % Baso % (Auto) 0.1 (0-2) % Neut # (Auto) 34744 H (6287-7431) /uL Lymph # (Auto) 700 L (1100-7697) /uL Story # (Auto) 1200 H (0-900) /uL Eos # (Auto) 0 (0-450) /uL Baso # (Auto) 0 (0-100) /uL ABG pH (7.35-7.45) ABG pCO2 (35-45) mmHg ABG pO2 (80-100) mmHg ABG HCO3 (22-26) mmol/L ABG Total CO2 (21-31) mmol/L ABG O2 Saturation (95-100) % ABG Base Excess (-2-2) mmol/L FiO2 Sodium 132 L (137-145) mmol/L Potassium 4.5 (3.4-5.1) mmol/L Chloride 93 L (98-107) mmol/L Carbon Dioxide 23 (22-32) mmol/L BUN 43 H (9-20) mg/dL Creatinine 1.17 (0.66-1.25) mg/dL Estimated GFR > 60 (>60) mL/min BUN/Creatinine Ratio 36.8 H (6-22) Glucose 175 H (80-110) mg/dL Lactate (0.7-2.1) mmol/L Calcium 8.3 L (8.4-10.2) mg/dL Magnesium 1.4 L (1.6-2.3) mg/dL Total Bilirubin 0.4 (0.2-1.3) mg/dL AST 53 (17-59) IU/L ALT 30 (<50) IU/L Alkaline Phosphatase 76 (38-126) U/L Total Creatine Kinase 813 H (55-170) U/L CK-MB (CK-2) 16.20 H (<2.37) ng/mL CK-MB (CK-2) Rel Index 2.0 (1.5-5.0) % Troponin I 0.064 H (0.01-0.034) ng/mL NT-Pro-B Natriuret Pep (<125) pg/mL Total Protein 8.0 (6.3-8.2) g/dL Albumin 4.1 (3.5-5.0) g/dL Globulin 3.9 (1.7-4.1) g/dL Albumin/Globulin Ratio 1.1 (1.0-2.8) Procalcitonin (<0.5) ng/mL Urine Color Yellow Urine Appearance Sl cloudy Urine pH 5.0 (4.5-8.0) Ur Specific [place] 1.025 (1.000-1.035) Urine Protein 3+ H (Negative) Urine Glucose (UA) Trace H (Negative) g/dL Urine Ketones Negative (NEGATIVE) Urine Occult Blood 2+ H (Negative) Urine Nitrate Negative (Negative) Urine Bilirubin Negative (NEGATIVE) Urine Urobilinogen 0.2 (0.2) E.U./dL Ur Leukocyte Esterase 1+ H (NEGATIVE) Urine RBC 0-1/hpf D (0-5/HPF) Urine WBC 30-100/hpf H (0-5/HPF) Ur Squamous Epith Cells None seen (0-5/HPF) Ur Transition Epith Cell 0-1/hpf (0-5/HPF) Ur Renal Epithelial Cell 0-1/hpf (0-1/HPF) Urine Bacteria Many (>30) H (None) WBC Casts 1-5/lpf H (None) Ur Culture Indicated? Specimen cultured Chlamy pneumoniae PCR (Not Detect) Adenovirus (PCR) (Not Detect) B. pertussis DNA (PCR) (Not Detecte) B.parapertussis DNA PCR (Not Detecte) Coronavirus OC43 (PCR) (Not Detect) Coronavirus HKU1 (PCR) (Not Detect) Coronavirus 229E (PCR) (Not Detect) SARS-CoV-2 (PCR) (Not Detecte) Coronavirus NL63 (PCR) (Not Detect) Human Metapneumovir PCR (Not Detect) Influenza Type A (PCR) (Not Detect) Influenza Type B (PCR) (Not Detect) M. pneumoniae (PCR) (Not Detect) Parainfluenza 1 (PCR) (Not Detect) Parainfluenza 2 (PCR) (Not Detect) Parainfluenza 3 (PCR) (Not Detect) Parainfluenza 4 (PCR) (Not Detect) RSV (PCR) (Not Detect) Entero/Rhino (PCR) (Not Detect) 03/28/22 03/29/22 03/29/22 Range/Units 19:40 06:55 06:55 WBC 9.5 (4.5-11.0) X10^3/uL RBC 3.73 L (4.5-5.9) X10^6/uL Hgb 11.1 L (13.5-17.5) g/dL Hct 32.4 L (41-53) % MCV 86.7 (80-100) fL MCH 29.7 (26-34) PG MCHC 34.3 (30-36) % RDW 15.2 H (11.6-14.8) % Plt Count 276 (150-400) X10^3/uL Neut % (Auto) 83.4 H (50-75) % Lymph % (Auto) 7.6 L (25-40) % Story % (Auto) 8.5 (3-14) % Eos % (Auto) 0.2 L (2-4) % Baso % (Auto) 0.3 (0-2) % Neut # (Auto) 7900 H (6991-3719) /uL Lymph # (Auto) 700 L (0536-1063) /uL Story # (Auto) 800 (0-900) /uL Eos # (Auto) 0 (0-450) /uL Baso # (Auto) 0 (0-100) /uL ABG pH (7.35-7.45) ABG pCO2 (35-45) mmHg ABG pO2 (80-100) mmHg ABG HCO3 (22-26) mmol/L ABG Total CO2 (21-31) mmol/L ABG O2 Saturation (95-100) % ABG Base Excess (-2-2) mmol/L FiO2 Sodium 133 L (137-145) mmol/L Potassium 4.1 (3.4-5.1) mmol/L Chloride 95 L (98-107) mmol/L Carbon Dioxide 26 (22-32) mmol/L BUN 40 H (9-20) mg/dL Creatinine 1.05 (0.66-1.25) mg/dL Estimated GFR > 60 (>60) mL/min BUN/Creatinine Ratio 38.1 H (6-22) Glucose 170 H (80-110) mg/dL Lactate (0.7-2.1) mmol/L Calcium 8.0 L (8.4-10.2) mg/dL Magnesium 1.1 L (1.6-2.3) mg/dL Total Bilirubin 0.5 (0.2-1.3) mg/dL AST 47 (17-59) IU/L ALT 30 (<50) IU/L Alkaline Phosphatase 68 (38-126) U/L Total Creatine Kinase (55-170) U/L CK-MB (CK-2) (<2.37) ng/mL CK-MB (CK-2) Rel Index (1.5-5.0) % Troponin I (0.01-0.034) ng/mL NT-Pro-B Natriuret Pep (<125) pg/mL Total Protein 7.2 (6.3-8.2) g/dL Albumin 3.8 (3.5-5.0) g/dL Globulin 3.4 (1.7-4.1) g/dL Albumin/Globulin Ratio 1.1 (1.0-2.8) Procalcitonin 1.00 H (<0.5) ng/mL Urine Color Urine Appearance Urine pH (4.5-8.0) Ur Specific [place] (1.000-1.035) Urine Protein (Negative) Urine Glucose (UA) (Negative) g/dL Urine Ketones (NEGATIVE) Urine Occult Blood (Negative) Urine Nitrate (Negative) Urine Bilirubin (NEGATIVE) Urine Urobilinogen (0.2) E.U./dL Ur Leukocyte Esterase (NEGATIVE) Urine RBC (0-5/HPF) Urine WBC (0-5/HPF) Ur Squamous Epith Cells (0-5/HPF) Ur Transition Epith Cell (0-5/HPF) Ur Renal Epithelial Cell (0-1/HPF) Urine Bacteria (None) WBC Casts (None) Ur Culture Indicated? Chlamy pneumoniae PCR (Not Detect) Adenovirus (PCR) (Not Detect) B. pertussis DNA (PCR) (Not Detecte) B.parapertussis DNA PCR (Not Detecte) Coronavirus OC43 (PCR) (Not Detect) Coronavirus HKU1 (PCR) (Not Detect) Coronavirus 229E (PCR) (Not Detect) SARS-CoV-2 (PCR) (Not Detecte) Coronavirus NL63 (PCR) (Not Detect) Human Metapneumovir PCR (Not Detect) Influenza Type A (PCR) (Not Detect) Influenza Type B (PCR) (Not Detect) M. pneumoniae (PCR) (Not Detect) Parainfluenza 1 (PCR) (Not Detect) Parainfluenza 2 (PCR) (Not Detect) Parainfluenza 3 (PCR) (Not Detect) Parainfluenza 4 (PCR) (Not Detect) RSV (PCR) (Not Detect) Entero/Rhino (PCR) (Not Detect) 03/30/22 03/30/22 03/30/22 Range/Units 09:07 09:07 09:07 WBC 10.6 (4.5-11.0) X10^3/uL RBC 3.65 L (4.5-5.9) X10^6/uL Hgb 10.9 L (13.5-17.5) g/dL Hct 31.4 L (41-53) % MCV 86.0 (80-100) fL MCH 29.9 (26-34) PG MCHC 34.8 (30-36) % RDW 14.8 (11.6-14.8) % Plt Count 283 (150-400) X10^3/uL Neut % (Auto) 90.5 H (50-75) % Lymph % (Auto) 4.2 L (25-40) % Story % (Auto) 5.2 (3-14) % Eos % (Auto) 0.0 L (2-4) % Baso % (Auto) 0.1 (0-2) % Neut # (Auto) 9500 H (7981-2089) /uL Lymph # (Auto) 400 L (1808-5981) /uL Story # (Auto) 600 (0-900) /uL Eos # (Auto) 0 (0-450) /uL Baso # (Auto) 0 (0-100) /uL ABG pH (7.35-7.45) ABG pCO2 (35-45) mmHg ABG pO2 (80-100) mmHg ABG HCO3 (22-26) mmol/L ABG Total CO2 (21-31) mmol/L ABG O2 Saturation (95-100) % ABG Base Excess (-2-2) mmol/L FiO2 Sodium 131 L (137-145) mmol/L Potassium 4.2 (3.4-5.1) mmol/L Chloride 96 L (98-107) mmol/L Carbon Dioxide 25 (22-32) mmol/L BUN 28 H (9-20) mg/dL Creatinine 0.75 (0.66-1.25) mg/dL Estimated GFR > 60 (>60) mL/min BUN/Creatinine Ratio 37.3 H (6-22) Glucose 197 H (80-110) mg/dL Lactate (0.7-2.1) mmol/L Calcium 8.1 L (8.4-10.2) mg/dL Magnesium 1.0 L (1.6-2.3) mg/dL Total Bilirubin (0.2-1.3) mg/dL AST (17-59) IU/L ALT (<50) IU/L Alkaline Phosphatase (38-126) U/L Total Creatine Kinase (55-170) U/L CK-MB (CK-2) (<2.37) ng/mL CK-MB (CK-2) Rel Index (1.5-5.0) % Troponin I (0.01-0.034) ng/mL NT-Pro-B Natriuret Pep (<125) pg/mL Total Protein (6.3-8.2) g/dL Albumin (3.5-5.0) g/dL Globulin (1.7-4.1) g/dL Albumin/Globulin Ratio (1.0-2.8) Procalcitonin (<0.5) ng/mL Urine Color Urine Appearance Urine pH (4.5-8.0) Ur Specific [place] (1.000-1.035) Urine Protein (Negative) Urine Glucose (UA) (Negative) g/dL Urine Ketones (NEGATIVE) Urine Occult Blood (Negative) Urine Nitrate (Negative) Urine Bilirubin (NEGATIVE) Urine Urobilinogen (0.2) E.U./dL Ur Leukocyte Esterase (NEGATIVE) Urine RBC (0-5/HPF) Urine WBC (0-5/HPF) Ur Squamous Epith Cells (0-5/HPF) Ur Transition Epith Cell (0-5/HPF) Ur Renal Epithelial Cell (0-1/HPF) Urine Bacteria (None) WBC Casts (None) Ur Culture Indicated? Chlamy pneumoniae PCR (Not Detect) Adenovirus (PCR) (Not Detect) B. pertussis DNA (PCR) (Not Detecte) B.parapertussis DNA PCR (Not Detecte) Coronavirus OC43 (PCR) (Not Detect) Coronavirus HKU1 (PCR) (Not Detect) Coronavirus 229E (PCR) (Not Detect) SARS-CoV-2 (PCR) (Not Detecte) Coronavirus NL63 (PCR) (Not Detect) Human Metapneumovir PCR (Not Detect) Influenza Type A (PCR) (Not Detect) Influenza Type B (PCR) (Not Detect) M. pneumoniae (PCR) (Not Detect) Parainfluenza 1 (PCR) (Not Detect) Parainfluenza 2 (PCR) (Not Detect) Parainfluenza 3 (PCR) (Not Detect) Parainfluenza 4 (PCR) (Not Detect) RSV (PCR) (Not Detect) Entero/Rhino (PCR) (Not Detect) Point of Care Testing Glucose POC 152 <Ginny Cloud DO - Last Filed: 04/02/22 19:09> Lab Data Labs: Lab Results 03/28/22 03/28/22 03/28/22 Range/Units 16:55 16:55 16:55 WBC 18.3 H (4.5-11.0) X10^3/uL RBC 4.32 L (4.5-5.9) X10^6/uL Hgb 12.7 L (13.5-17.5) g/dL Hct 37.9 L (41-53) % MCV 87.8 (80-100) fL MCH 29.5 (26-34) PG MCHC 33.5 (30-36) % RDW 15.2 H (11.6-14.8) % Plt Count 328 (150-400) X10^3/uL Neut % (Auto) 88.5 H (50-75) % Lymph % (Auto) 4.0 L (25-40) % Story % (Auto) 7.4 (3-14) % Eos % (Auto) 0.0 L (2-4) % Baso % (Auto) 0.1 (0-2) % Neut # (Auto) 73579 H (5764-2294) /uL Lymph # (Auto) 700 L (2671-4605) /uL Story # (Auto) 1400 H (0-900) /uL Eos # (Auto) 0 (0-450) /uL Baso # (Auto) 0 (0-100) /uL ABG pH (7.35-7.45) ABG pCO2 (35-45) mmHg ABG pO2 (80-100) mmHg ABG HCO3 (22-26) mmol/L ABG Total CO2 (21-31) mmol/L ABG O2 Saturation (95-100) % ABG Base Excess (-2-2) mmol/L FiO2 Sodium 133 L (137-145) mmol/L Potassium 4.6 (3.4-5.1) mmol/L Chloride 93 L (98-107) mmol/L Carbon Dioxide 21 L (22-32) mmol/L BUN 43 H (9-20) mg/dL Creatinine 1.13 (0.66-1.25) mg/dL Estimated GFR > 60 (>60) mL/min BUN/Creatinine Ratio 38.1 H (6-22) Glucose 214 H (80-110) mg/dL Lactate 3.4 H (0.7-2.1) mmol/L Calcium 8.8 (8.4-10.2) mg/dL Magnesium 0.6 L* (1.6-2.3) mg/dL Total Bilirubin 0.7 (0.2-1.3) mg/dL AST 56 (17-59) IU/L ALT 32 (<50) IU/L Alkaline Phosphatase 79 (38-126) U/L Total Creatine Kinase 835 H (55-170) U/L CK-MB (CK-2) 15.90 H (<2.37) ng/mL CK-MB (CK-2) Rel Index 1.9 (1.5-5.0) % Troponin I 0.056 H (0.01-0.034) ng/mL NT-Pro-B Natriuret Pep 3060 H (<125) pg/mL Total Protein 8.8 H (6.3-8.2) g/dL Albumin 4.5 (3.5-5.0) g/dL Globulin 4.3 H (1.7-4.1) g/dL Albumin/Globulin Ratio 1.0 (1.0-2.8) Procalcitonin (<0.5) ng/mL Urine Color Urine Appearance Urine pH (4.5-8.0) Ur Specific [place] (1.000-1.035) Urine Protein (Negative) Urine Glucose (UA) (Negative) g/dL Urine Ketones (NEGATIVE) Urine Occult Blood (Negative) Urine Nitrate (Negative) Urine Bilirubin (NEGATIVE) Urine Urobilinogen (0.2) E.U./dL Ur Leukocyte Esterase (NEGATIVE) Urine RBC (0-5/HPF) Urine WBC (0-5/HPF) Ur Squamous Epith Cells (0-5/HPF) Ur Transition Epith Cell (0-5/HPF) Ur Renal Epithelial Cell (0-1/HPF) Urine Bacteria (None) WBC Casts (None) Ur Culture Indicated? Chlamy pneumoniae PCR (Not Detect) Adenovirus (PCR) (Not Detect) B. pertussis DNA (PCR) (Not Detecte) B.parapertussis DNA PCR (Not Detecte) Coronavirus OC43 (PCR) (Not Detect) Coronavirus HKU1 (PCR) (Not Detect) Coronavirus 229E (PCR) (Not Detect) SARS-CoV-2 (PCR) (Not Detecte) Coronavirus NL63 (PCR) (Not Detect) Human Metapneumovir PCR (Not Detect) Influenza Type A (PCR) (Not Detect) Influenza Type B (PCR) (Not Detect) M. pneumoniae (PCR) (Not Detect) Parainfluenza 1 (PCR) (Not Detect) Parainfluenza 2 (PCR) (Not Detect) Parainfluenza 3 (PCR) (Not Detect) Parainfluenza 4 (PCR) (Not Detect) RSV (PCR) (Not Detect) Entero/Rhino (PCR) (Not Detect) 03/28/22 03/28/22 03/28/22 Range/Units 17:10 18:13 19:40 WBC (4.5-11.0) X10^3/uL RBC (4.5-5.9) X10^6/uL Hgb (13.5-17.5) g/dL Hct (41-53) % MCV (80-100) fL MCH (26-34) PG MCHC (30-36) % RDW (11.6-14.8) % Plt Count (150-400) X10^3/uL Neut % (Auto) (50-75) % Lymph % (Auto) (25-40) % Story % (Auto) (3-14) % Eos % (Auto) (2-4) % Baso % (Auto) (0-2) % Neut # (Auto) (8937-6141) /uL Lymph # (Auto) (6851-0590) /uL Story # (Auto) (0-900) /uL Eos # (Auto) (0-450) /uL Baso # (Auto) (0-100) /uL ABG pH 7.39 (7.35-7.45) ABG pCO2 32.2 L (35-45) mmHg ABG pO2 77 L (80-100) mmHg ABG HCO3 20 L (22-26) mmol/L ABG Total CO2 21 (21-31) mmol/L ABG O2 Saturation 95 (95-100) % ABG Base Excess -5.0 L (-2-2) mmol/L FiO2 28 Sodium (137-145) mmol/L Potassium (3.4-5.1) mmol/L Chloride (98-107) mmol/L Carbon Dioxide (22-32) mmol/L BUN (9-20) mg/dL Creatinine (0.66-1.25) mg/dL Estimated GFR (>60) mL/min BUN/Creatinine Ratio (6-22) Glucose (80-110) mg/dL Lactate 1.8 (0.7-2.1) mmol/L Calcium (8.4-10.2) mg/dL Magnesium (1.6-2.3) mg/dL Total Bilirubin (0.2-1.3) mg/dL AST (17-59) IU/L ALT (<50) IU/L Alkaline Phosphatase (38-126) U/L Total Creatine Kinase (55-170) U/L CK-MB (CK-2) (<2.37) ng/mL CK-MB (CK-2) Rel Index (1.5-5.0) % Troponin I (0.01-0.034) ng/mL NT-Pro-B Natriuret Pep (<125) pg/mL Total Protein (6.3-8.2) g/dL Albumin (3.5-5.0) g/dL Globulin (1.7-4.1) g/dL Albumin/Globulin Ratio (1.0-2.8) Procalcitonin (<0.5) ng/mL Urine Color Urine Appearance Urine pH (4.5-8.0) Ur Specific [place] (1.000-1.035) Urine Protein (Negative) Urine Glucose (UA) (Negative) g/dL Urine Ketones (NEGATIVE) Urine Occult Blood (Negative) Urine Nitrate (Negative) Urine Bilirubin (NEGATIVE) Urine Urobilinogen (0.2) E.U./dL Ur Leukocyte Esterase (NEGATIVE) Urine RBC (0-5/HPF) Urine WBC (0-5/HPF) Ur Squamous Epith Cells (0-5/HPF) Ur Transition Epith Cell (0-5/HPF) Ur Renal Epithelial Cell (0-1/HPF) Urine Bacteria (None) WBC Casts (None) Ur Culture Indicated? Chlamy pneumoniae PCR Not detected (Not Detect) Adenovirus (PCR) Not detected (Not Detect) B. pertussis DNA (PCR) Not detected (Not Detecte) B.parapertussis DNA PCR Not detected (Not Detecte) Coronavirus OC43 (PCR) Not detected (Not Detect) Coronavirus HKU1 (PCR) Not detected (Not Detect) Coronavirus 229E (PCR) Not detected (Not Detect) SARS-CoV-2 (PCR) Not detected (Not Detecte) Coronavirus NL63 (PCR) Not detected (Not Detect) Human Metapneumovir PCR Not detected (Not Detect) Influenza Type A (PCR) Not detected (Not Detect) Influenza Type B (PCR) Not detected (Not Detect) M. pneumoniae (PCR) Not detected (Not Detect) Parainfluenza 1 (PCR) Not detected (Not Detect) Parainfluenza 2 (PCR) Not detected (Not Detect) Parainfluenza 3 (PCR) Not detected (Not Detect) Parainfluenza 4 (PCR) Not detected (Not Detect) RSV (PCR) Not detected (Not Detect) Entero/Rhino (PCR) Detected H (Not Detect) 03/28/22 03/28/22 03/28/22 Range/Units 19:40 19:40 19:40 WBC 15.7 H (4.5-11.0) X10^3/uL RBC 3.99 L (4.5-5.9) X10^6/uL Hgb 12.0 L (13.5-17.5) g/dL Hct 34.6 L (41-53) % MCV 86.7 (80-100) fL MCH 29.9 (26-34) PG MCHC 34.5 (30-36) % RDW 14.9 H (11.6-14.8) % Plt Count 287 (150-400) X10^3/uL Neut % (Auto) 88.0 H (50-75) % Lymph % (Auto) 4.5 L (25-40) % Story % (Auto) 7.4 (3-14) % Eos % (Auto) 0.0 L (2-4) % Baso % (Auto) 0.1 (0-2) % Neut # (Auto) 79618 H (9289-0527) /uL Lymph # (Auto) 700 L (8244-5946) /uL Story # (Auto) 1200 H (0-900) /uL Eos # (Auto) 0 (0-450) /uL Baso # (Auto) 0 (0-100) /uL ABG pH (7.35-7.45) ABG pCO2 (35-45) mmHg ABG pO2 (80-100) mmHg ABG HCO3 (22-26) mmol/L ABG Total CO2 (21-31) mmol/L ABG O2 Saturation (95-100) % ABG Base Excess (-2-2) mmol/L FiO2 Sodium 132 L (137-145) mmol/L Potassium 4.5 (3.4-5.1) mmol/L Chloride 93 L (98-107) mmol/L Carbon Dioxide 23 (22-32) mmol/L BUN 43 H (9-20) mg/dL Creatinine 1.17 (0.66-1.25) mg/dL Estimated GFR > 60 (>60) mL/min BUN/Creatinine Ratio 36.8 H (6-22) Glucose 175 H (80-110) mg/dL Lactate (0.7-2.1) mmol/L Calcium 8.3 L (8.4-10.2) mg/dL Magnesium 1.4 L (1.6-2.3) mg/dL Total Bilirubin 0.4 (0.2-1.3) mg/dL AST 53 (17-59) IU/L ALT 30 (<50) IU/L Alkaline Phosphatase 76 (38-126) U/L Total Creatine Kinase 813 H (55-170) U/L CK-MB (CK-2) 16.20 H (<2.37) ng/mL CK-MB (CK-2) Rel Index 2.0 (1.5-5.0) % Troponin I 0.064 H (0.01-0.034) ng/mL NT-Pro-B Natriuret Pep (<125) pg/mL Total Protein 8.0 (6.3-8.2) g/dL Albumin 4.1 (3.5-5.0) g/dL Globulin 3.9 (1.7-4.1) g/dL Albumin/Globulin Ratio 1.1 (1.0-2.8) Procalcitonin (<0.5) ng/mL Urine Color Yellow Urine Appearance Sl cloudy Urine pH 5.0 (4.5-8.0) Ur Specific [place] 1.025 (1.000-1.035) Urine Protein 3+ H (Negative) Urine Glucose (UA) Trace H (Negative) g/dL Urine Ketones Negative (NEGATIVE) Urine Occult Blood 2+ H (Negative) Urine Nitrate Negative (Negative) Urine Bilirubin Negative (NEGATIVE) Urine Urobilinogen 0.2 (0.2) E.U./dL Ur Leukocyte Esterase 1+ H (NEGATIVE) Urine RBC 0-1/hpf D (0-5/HPF) Urine WBC 30-100/hpf H (0-5/HPF) Ur Squamous Epith Cells None seen (0-5/HPF) Ur Transition Epith Cell 0-1/hpf (0-5/HPF) Ur Renal Epithelial Cell 0-1/hpf (0-1/HPF) Urine Bacteria Many (>30) H (None) WBC Casts 1-5/lpf H (None) Ur Culture Indicated? Specimen cultured Chlamy pneumoniae PCR (Not Detect) Adenovirus (PCR) (Not Detect) B. pertussis DNA (PCR) (Not Detecte) B.parapertussis DNA PCR (Not Detecte) Coronavirus OC43 (PCR) (Not Detect) Coronavirus HKU1 (PCR) (Not Detect) Coronavirus 229E (PCR) (Not Detect) SARS-CoV-2 (PCR) (Not Detecte) Coronavirus NL63 (PCR) (Not Detect) Human Metapneumovir PCR (Not Detect) Influenza Type A (PCR) (Not Detect) Influenza Type B (PCR) (Not Detect) M. pneumoniae (PCR) (Not Detect) Parainfluenza 1 (PCR) (Not Detect) Parainfluenza 2 (PCR) (Not Detect) Parainfluenza 3 (PCR) (Not Detect) Parainfluenza 4 (PCR) (Not Detect) RSV (PCR) (Not Detect) Entero/Rhino (PCR) (Not Detect) 03/28/22 03/29/22 03/29/22 Range/Units 19:40 06:55 06:55 WBC 9.5 (4.5-11.0) X10^3/uL RBC 3.73 L (4.5-5.9) X10^6/uL Hgb 11.1 L (13.5-17.5) g/dL Hct 32.4 L (41-53) % MCV 86.7 (80-100) fL MCH 29.7 (26-34) PG MCHC 34.3 (30-36) % RDW 15.2 H (11.6-14.8) % Plt Count 276 (150-400) X10^3/uL Neut % (Auto) 83.4 H (50-75) % Lymph % (Auto) 7.6 L (25-40) % Story % (Auto) 8.5 (3-14) % Eos % (Auto) 0.2 L (2-4) % Baso % (Auto) 0.3 (0-2) % Neut # (Auto) 7900 H (4143-5670) /uL Lymph # (Auto) 700 L (2818-9265) /uL Story # (Auto) 800 (0-900) /uL Eos # (Auto) 0 (0-450) /uL Baso # (Auto) 0 (0-100) /uL ABG pH (7.35-7.45) ABG pCO2 (35-45) mmHg ABG pO2 (80-100) mmHg ABG HCO3 (22-26) mmol/L ABG Total CO2 (21-31) mmol/L ABG O2 Saturation (95-100) % ABG Base Excess (-2-2) mmol/L FiO2 Sodium 133 L (137-145) mmol/L Potassium 4.1 (3.4-5.1) mmol/L Chloride 95 L (98-107) mmol/L Carbon Dioxide 26 (22-32) mmol/L BUN 40 H (9-20) mg/dL Creatinine 1.05 (0.66-1.25) mg/dL Estimated GFR > 60 (>60) mL/min BUN/Creatinine Ratio 38.1 H (6-22) Glucose 170 H (80-110) mg/dL Lactate (0.7-2.1) mmol/L Calcium 8.0 L (8.4-10.2) mg/dL Magnesium 1.1 L (1.6-2.3) mg/dL Total Bilirubin 0.5 (0.2-1.3) mg/dL AST 47 (17-59) IU/L ALT 30 (<50) IU/L Alkaline Phosphatase 68 (38-126) U/L Total Creatine Kinase (55-170) U/L CK-MB (CK-2) (<2.37) ng/mL CK-MB (CK-2) Rel Index (1.5-5.0) % Troponin I (0.01-0.034) ng/mL NT-Pro-B Natriuret Pep (<125) pg/mL Total Protein 7.2 (6.3-8.2) g/dL Albumin 3.8 (3.5-5.0) g/dL Globulin 3.4 (1.7-4.1) g/dL Albumin/Globulin Ratio 1.1 (1.0-2.8) Procalcitonin 1.00 H (<0.5) ng/mL Urine Color Urine Appearance Urine pH (4.5-8.0) Ur Specific [place] (1.000-1.035) Urine Protein (Negative) Urine Glucose (UA) (Negative) g/dL Urine Ketones (NEGATIVE) Urine Occult Blood (Negative) Urine Nitrate (Negative) Urine Bilirubin (NEGATIVE) Urine Urobilinogen (0.2) E.U./dL Ur Leukocyte Esterase (NEGATIVE) Urine RBC (0-5/HPF) Urine WBC (0-5/HPF) Ur Squamous Epith Cells (0-5/HPF) Ur Transition Epith Cell (0-5/HPF) Ur Renal Epithelial Cell (0-1/HPF) Urine Bacteria (None) WBC Casts (None) Ur Culture Indicated? Chlamy pneumoniae PCR (Not Detect) Adenovirus (PCR) (Not Detect) B. pertussis DNA (PCR) (Not Detecte) B.parapertussis DNA PCR (Not Detecte) Coronavirus OC43 (PCR) (Not Detect) Coronavirus HKU1 (PCR) (Not Detect) Coronavirus 229E (PCR) (Not Detect) SARS-CoV-2 (PCR) (Not Detecte) Coronavirus NL63 (PCR) (Not Detect) Human Metapneumovir PCR (Not Detect) Influenza Type A (PCR) (Not Detect) Influenza Type B (PCR) (Not Detect) M. pneumoniae (PCR) (Not Detect) Parainfluenza 1 (PCR) (Not Detect) Parainfluenza 2 (PCR) (Not Detect) Parainfluenza 3 (PCR) (Not Detect) Parainfluenza 4 (PCR) (Not Detect) RSV (PCR) (Not Detect) Entero/Rhino (PCR) (Not Detect) 03/30/22 03/30/22 03/30/22 Range/Units 09:07 09:07 09:07 WBC 10.6 (4.5-11.0) X10^3/uL RBC 3.65 L (4.5-5.9) X10^6/uL Hgb 10.9 L (13.5-17.5) g/dL Hct 31.4 L (41-53) % MCV 86.0 (80-100) fL MCH 29.9 (26-34) PG MCHC 34.8 (30-36) % RDW 14.8 (11.6-14.8) % Plt Count 283 (150-400) X10^3/uL Neut % (Auto) 90.5 H (50-75) % Lymph % (Auto) 4.2 L (25-40) % Story % (Auto) 5.2 (3-14) % Eos % (Auto) 0.0 L (2-4) % Baso % (Auto) 0.1 (0-2) % Neut # (Auto) 9500 H (4754-2127) /uL Lymph # (Auto) 400 L (1152-0334) /uL Story # (Auto) 600 (0-900) /uL Eos # (Auto) 0 (0-450) /uL Baso # (Auto) 0 (0-100) /uL ABG pH (7.35-7.45) ABG pCO2 (35-45) mmHg ABG pO2 (80-100) mmHg ABG HCO3 (22-26) mmol/L ABG Total CO2 (21-31) mmol/L ABG O2 Saturation (95-100) % ABG Base Excess (-2-2) mmol/L FiO2 Sodium 131 L (137-145) mmol/L Potassium 4.2 (3.4-5.1) mmol/L Chloride 96 L (98-107) mmol/L Carbon Dioxide 25 (22-32) mmol/L BUN 28 H (9-20) mg/dL Creatinine 0.75 (0.66-1.25) mg/dL Estimated GFR > 60 (>60) mL/min BUN/Creatinine Ratio 37.3 H (6-22) Glucose 197 H (80-110) mg/dL Lactate (0.7-2.1) mmol/L Calcium 8.1 L (8.4-10.2) mg/dL Magnesium 1.0 L (1.6-2.3) mg/dL Total Bilirubin (0.2-1.3) mg/dL AST (17-59) IU/L ALT (<50) IU/L Alkaline Phosphatase (38-126) U/L Total Creatine Kinase (55-170) U/L CK-MB (CK-2) (<2.37) ng/mL CK-MB (CK-2) Rel Index (1.5-5.0) % Troponin I (0.01-0.034) ng/mL NT-Pro-B Natriuret Pep (<125) pg/mL Total Protein (6.3-8.2) g/dL Albumin (3.5-5.0) g/dL Globulin (1.7-4.1) g/dL Albumin/Globulin Ratio (1.0-2.8) Procalcitonin (<0.5) ng/mL Urine Color Urine Appearance Urine pH (4.5-8.0) Ur Specific [place] (1.000-1.035) Urine Protein (Negative) Urine Glucose (UA) (Negative) g/dL Urine Ketones (NEGATIVE) Urine Occult Blood (Negative) Urine Nitrate (Negative) Urine Bilirubin (NEGATIVE) Urine Urobilinogen (0.2) E.U./dL Ur Leukocyte Esterase (NEGATIVE) Urine RBC (0-5/HPF) Urine WBC (0-5/HPF) Ur Squamous Epith Cells (0-5/HPF) Ur Transition Epith Cell (0-5/HPF) Ur Renal Epithelial Cell (0-1/HPF) Urine Bacteria (None) WBC Casts (None) Ur Culture Indicated? Chlamy pneumoniae PCR (Not Detect) Adenovirus (PCR) (Not Detect) B. pertussis DNA (PCR) (Not Detecte) B.parapertussis DNA PCR (Not Detecte) Coronavirus OC43 (PCR) (Not Detect) Coronavirus HKU1 (PCR) (Not Detect) Coronavirus 229E (PCR) (Not Detect) SARS-CoV-2 (PCR) (Not Detecte) Coronavirus NL63 (PCR) (Not Detect) Human Metapneumovir PCR (Not Detect) Influenza Type A (PCR) (Not Detect) Influenza Type B (PCR) (Not Detect) M. pneumoniae (PCR) (Not Detect) Parainfluenza 1 (PCR) (Not Detect) Parainfluenza 2 (PCR) (Not Detect) Parainfluenza 3 (PCR) (Not Detect) Parainfluenza 4 (PCR) (Not Detect) RSV (PCR) (Not Detect) Entero/Rhino (PCR) (Not Detect) Point of Care Testing Glucose POC [address] scan - head: Radiologist's Impression: [address] [address] [address] Scan Report Signed Patient: Shad Street MR#: [id number] : 1950 Acct:[id number] Age/Sex: 71 / M Date of Service: 03/28/22 Loc: ED Accession Number: [id number] ?? Procedure: CT head/brain wo con Ordering Provider: Zechariah Flores D.O. PROCEDURE:? CT HEAD/BRAIN WO CON ? INDICATIONS:? recent fall, confusion, hallucinations ? TECHNIQUE:? Noncontrast 4.5 mm thick angled axial sections acquired from the foramen magnum to the vertex, with coronal and sagittal reformats.? For radiation dose reduction, the following was used:? automated exposure control, adjustment of mA and/or kV according to patient size.? ? COMPARISON:? [facility], CT, CT HEAD TPA, 03/24/2021, 18:13.? [facility], [place], PET NECK TO MID THIGH, 06/24/2021, 13:37.? [facility], CT, HEAD WITHOUT CONTRAST, 10/09/2008, 20:53. ? FINDINGS:? Image quality:? Excellent.? ? CSF spaces:? Basal cisterns are patent.? No extra-axial fluid collections.? Ventricles are normal in size and shape.? ? Brain:? There is now a right frontal cystic lesion with irregular capsular wall thickening.? Lesion measures overall 3.9 x 3.2 by 3.1 cm.? Wall thickening is thicker peripherally, measures up to 7 mm.? Mild frontal gliosis noted, similar prior Additional hyperdense periventricular nodule measures 1.2 x 1.2 x 0.3 cm.? Mild mass effect results in 1-2 mm midline shift.? ? Skull and face:? Calvarium and visualized facial bones are intact, without suspicious lesions.? Right pterional craniotomy.? Dual MCA aneurysm clips noted, unchanged from the prior. ? Sinuses:? Visualized sinuses and mastoids are clear.? ? IMPRESSION:? ? 1. Right frontal cystic lesion with irregular nodular capsule, new from the prior.? Differential possibilities include metastatic mass lesion with internal necrosis or brittanie-tumoral cyst.? Differential would intracerebral abscess.? Consider follow- up MRI with contrast. ? 2. 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 No significant peripheral edema.? Trace midline shift, 1-2 mm. ? 3. Previous right MCA dual aneurysm clips, frontal gliosis and volume loss, pterional craniotomy are unchanged from the prior ? ? ? Approved by: Florin Dorsey M.D. on 03/28/2022 at 16:53? Chest x-ray: Radiologist's Impression: FREDDIE Silva [id number] XRay Report Signed Patient: Shad Street MR#: [id number] : 1950 Acct:[id number] Age/Sex: 71 / M Date of Service: 03/28/22 Loc: ED Accession Number: [id number] ?? Procedure: XR chest 1V Ordering Provider: Zechariah Flores D.O. PROCEDURE:? XR CHEST 1V ? INDICATIONS:? cough, SOB ? TECHNIQUE:? One view of the chest was acquired.? ? COMPARISON:? [facility], , XR CHEST 1V, 06/20/2021, 19:06. ? FINDINGS:? ? Surgical changes and devices:? Left-sided dual-chamber pacemaker and right-sided Port-A-Cath ? Lungs and pleura:? Right apical pneumothorax measures 5.6 cm to the thoracic apex.? Left lung is clear. ? Mediastinum:? Mediastinal contours appear normal.? Heart size is enlarged.? ? Bones and chest wall:? No suspicious bony lesions.? Overlying soft tissues appear unremarkable.? ? IMPRESSION:? ? 1. Right apical pneumothorax ? Note:? Critical results were discussed with Dr. Flores at 05:03 PM [place] time on 03/28/22 ? Approved by: Florin Dorsey M.D. on 03/28/2022 at 17:03? CXR 2: Radiologist's Impression: XRay Report Signed Patient: Shad Street MR#: [id number] : 1950 Acct:[id number] Age/Sex: 71 / M Date of Service: 03/28/22 Loc: ED Accession Number: [id number] ?? Procedure: XR chest 1V Ordering Provider: eZchariah Flores D.O. PROCEDURE:? XR CHEST 1V ? INDICATIONS:? chest tube ? TECHNIQUE:? One view of the chest was acquired.? ? COMPARISON:? [facility], XR CHEST 1V, 03/28/2022, 17:27. ? FINDINGS:? ? Surgical changes and devices:? There is small bore flexible, probably pigtail chest tube in the right lateral hemithorax, although the pigtail is not formed and a few of the side holes may remain extrapleural.? MediPort and pacemaker are also in place. ? Lungs and pleura:? There is been significant decrease in size of the right pneumothorax . ?The small apical pneumothorax is still visible.? Linear opacity seen at the right lung base.? Left lung is within normal limits. ? Mediastinum:? Cardiomediastinal contour is stable. ? Bones and chest wall:? No suspicious bony lesions.? Overlying soft tissues appear unremarkable.? ? IMPRESSION:? ? 1. Right pigtail chest tube in place with significant decrease in size of right pneumothorax. ? 2. The right chest tube pigtail is not locked and may dislodge.? ? ? Dictated by: Eli Costello M.D. on 03/28/2022 at 19:52 ? ? Approved by: Eli Costello M.D. on 03/28/2022 at 19:56 ? CXR 3: Radiologist's Impression: PROCEDURE:? XR CHEST 1V ? INDICATIONS:? Chest tube placement ? TECHNIQUE:? One view of the chest was acquired.? ? COMPARISON:? [facility], XR CHEST 1V, 03/29/2022, 0:26. ? FINDINGS:? ? Surgical changes and devices:? There is a new right chest tube with the tip projecting medially over the right hilar region.? Right subclavian Port-A-Cath appears unchanged.? Left chest wall dual lead pacemaker also appears unchanged. ? Lungs and pleura:? No definite residual pneumothorax identified.? There are increased right infrahilar opacities likely representing atelectasis. ? Mediastinum:? Mediastinal contours appear unchanged.? Heart size is normal.? ? Bones and chest wall:? No suspicious bony lesions.? Overlying soft tissues ap pear unremarkable.? ? IMPRESSION:? ? 1.? New right chest tube with resolution of previously visualized right pneumothorax. ? 2. Increased right infrahilar opacities likely represent atelectasis. ? ? Dictated by: Jam Austin M.D. on 03/29/2022 at 2:14 ? ? MDM Narrative Medical decision making narrative: Ai: Patient signed out to me by Dr. Flores. I have seen evaluated patient my self. Awake alert answering questions following commands his golf course ranger strength is equal bilaterally. Discussed case with [facility] neurosurgery has reviewed imaging he will go tomorrow [facility] tomorrow kerwin cruz. Accepting doctor is Dr. Belkys Friend. I personally did not speak with him but according to transfer center as he has been accepted. Request MRI in the morning if able. The patient was lying on left side noted to need increasing oxygen and remained hypoxic. Repeat chest x-ray appears increased size and pneumothorax and appears the pigtail catheter has come out. Chest tube is placed by myself. The patient tolerated procedure very well. Repeat chest x-ray confirms his chest tube placement in improved pneumothorax. 03/29/22 Marcella: Patient signed out to Dr. Naranjo. Accepted by Dr. Peters for tia travis. Okay I spoke with Neurosurgery, Dr. Peters he will speak with the ED doc and asks for ED to ED transfer. He will speak with the doc at [place]. We discussed dexamethasone he is comfortable with that agrees 4 mg of dex p.o. q.6 hours, discussed that we reinstated patient has normal anti seizure medication they did received Levaquin for possible UTI. We also reviewed that patient's catheter appeared to have come out and chest tube was replaced overnight. Has not had repeat head CT imaging since 5:00 p.m. yesterday. No request for additional. Patient is accepted for transfer away the hear back from coordinator for when we can arrange transport. Coordinator called back, the physician responsible for allowing patients to come as ED to ED states patient does not meet criteria at this time. We will wait for bed assignment before transferring. Patient has been stable during his stay today, we did restart his home medications including his zonisamide, his pain medications and he is receiving IV Dilaudid as needed for pain. Patient signed out to Dr. Flores while awaiting placement. 03/30/22 Dr aguilar: Received turned over from Dr. Flores. If you patient's history and physical and labs and radiologic studies had been performed up to this point. He has been receiving Levaquin. His urinalysis did show Klebsiella which was susceptible to this. He is also been receiving magnesium replacement. Has SCDs in place for DVT prophylaxis. Repeat chest x-ray today shows vast improvement of his pneumothorax. His chest tube was placed to water- seal and should be re-evaluated on 03/31 with a repeat chest x-ray. Patient is stable. I did discuss the case with Neurosurgery at [facility] you ask that the patient be transferred by late afternoon today so that they can obtain an MRI in preparation for potential surgery tomorrow. Patient is stable for transport. <Mona Naranjo, DO - Last Filed: 04/09/22 11:25> Lab Data Labs: Lab Results 03/28/22 03/28/22 03/28/22 Range/Units 16:55 16:55 16:55 WBC 18.3 H (4.5-11.0) X10^3/uL RBC 4.32 L (4.5-5.9) X10^6/uL Hgb 12.7 L (13.5-17.5) g/dL Hct 37.9 L (41-53) % MCV 87.8 (80-100) fL MCH 29.5 (26-34) PG MCHC 33.5 (30-36) % RDW 15.2 H (11.6-14.8) % Plt Count 328 (150-400) X10^3/uL Neut % (Auto) 88.5 H (50-75) % Lymph % (Auto) 4.0 L (25-40) % Story % (Auto) 7.4 (3-14) % Eos % (Auto) 0.0 L (2-4) % Baso % (Auto) 0.1 (0-2) % Neut # (Auto) 76941 H (2902-6262) /uL Lymph # (Auto) 700 L (1930-9764) /uL Story # (Auto) 1400 H (0-900) /uL Eos # (Auto) 0 (0-450) /uL Baso # (Auto) 0 (0-100) /uL ABG pH (7.35-7.45) ABG pCO2 (35-45) mmHg ABG pO2 (80-100) mmHg ABG HCO3 (22-26) mmol/L ABG Total CO2 (21-31) mmol/L ABG O2 Saturation (95-100) % ABG Base Excess (-2-2) mmol/L FiO2 Sodium 133 L (137-145) mmol/L Potassium 4.6 (3.4-5.1) mmol/L Chloride 93 L (98-107) mmol/L Carbon Dioxide 21 L (22-32) mmol/L BUN 43 H (9-20) mg/dL Creatinine 1.13 (0.66-1.25) mg/dL Estimated GFR > 60 (>60) mL/min BUN/Creatinine Ratio 38.1 H (6-22) Glucose 214 H (80-110) mg/dL Lactate 3.4 H (0.7-2.1) mmol/L Calcium 8.8 (8.4-10.2) mg/dL Magnesium 0.6 L* (1.6-2.3) mg/dL Total Bilirubin 0.7 (0.2-1.3) mg/dL AST 56 (17-59) IU/L ALT 32 (<50) IU/L Alkaline Phosphatase 79 (38-126) U/L Total Creatine Kinase 835 H (55-170) U/L CK-MB (CK-2) 15.90 H (<2.37) ng/mL CK-MB (CK-2) Rel Index 1.9 (1.5-5.0) % Troponin I 0.056 H (0.01-0.034) ng/mL NT-Pro-B Natriuret Pep 3060 H (<125) pg/mL Total Protein 8.8 H (6.3-8.2) g/dL Albumin 4.5 (3.5-5.0) g/dL Globulin 4.3 H (1.7-4.1) g/dL Albumin/Globulin Ratio 1.0 (1.0-2.8) Procalcitonin (<0.5) ng/mL Urine Color Urine Appearance Urine pH (4.5-8.0) Ur Specific [place] (1.000-1.035) Urine Protein (Negative) Urine Glucose (UA) (Negative) g/dL Urine Ketones (NEGATIVE) Urine Occult Blood (Negative) Urine Nitrate (Negative) Urine Bilirubin (NEGATIVE) Urine Urobilinogen (0.2) E.U./dL Ur Leukocyte Esterase (NEGATIVE) Urine RBC (0-5/HPF) Urine WBC (0-5/HPF) Ur Squamous Epith Cells (0-5/HPF) Ur Transition Epith Cell (0-5/HPF) Ur Renal Epithelial Cell (0-1/HPF) Urine Bacteria (None) WBC Casts (None) Ur Culture Indicated? Chlamy pneumoniae PCR (Not Detect) Adenovirus (PCR) (Not Detect) B. pertussis DNA (PCR) (Not Detecte) B.parapertussis DNA PCR (Not Detecte) Coronavirus OC43 (PCR) (Not Detect) Coronavirus HKU1 (PCR) (Not Detect) Coronavirus 229E (PCR) (Not Detect) SARS-CoV-2 (PCR) (Not Detecte) Coronavirus NL63 (PCR) (Not Detect) Human Metapneumovir PCR (Not Detect) Influenza Type A (PCR) (Not Detect) Influenza Type B (PCR) (Not Detect) M. pneumoniae (PCR) (Not Detect) Parainfluenza 1 (PCR) (Not Detect) Parainfluenza 2 (PCR) (Not Detect) Parainfluenza 3 (PCR) (Not Detect) Parainfluenza 4 (PCR) (Not Detect) RSV (PCR) (Not Detect) Entero/Rhino (PCR) (Not Detect) 03/28/22 03/28/22 03/28/22 Range/Units 17:10 18:13 19:40 WBC (4.5-11.0) X10^3/uL RBC (4.5-5.9) X10^6/uL Hgb (13.5-17.5) g/dL Hct (41-53) % MCV (80-100) fL MCH (26-34) PG MCHC (30-36) % RDW (11.6-14.8) % Plt Count (150-400) X10^3/uL Neut % (Auto) (50-75) % Lymph % (Auto) (25-40) % Story % (Auto) (3-14) % Eos % (Auto) (2-4) % Baso % (Auto) (0-2) % Neut # (Auto) (0701-3204) /uL Lymph # (Auto) (8995-0490) /uL Story # (Auto) (0-900) /uL Eos # (Auto) (0-450) /uL Baso # (Auto) (0-100) /uL ABG pH 7.39 (7.35-7.45) ABG pCO2 32.2 L (35-45) mmHg ABG pO2 77 L (80-100) mmHg ABG HCO3 20 L (22-26) mmol/L ABG Total CO2 21 (21-31) mmol/L ABG O2 Saturation 95 (95-100) % ABG Base Excess -5.0 L (-2-2) mmol/L FiO2 28 Sodium (137-145) mmol/L Potassium (3.4-5.1) mmol/L Chloride (98-107) mmol/L Carbon Dioxide (22-32) mmol/L BUN (9-20) mg/dL Creatinine (0.66-1.25) mg/dL Estimated GFR (>60) mL/min BUN/Creatinine Ratio (6-22) Glucose (80-110) mg/dL Lactate 1.8 (0.7-2.1) mmol/L Calcium (8.4-10.2) mg/dL Magnesium (1.6-2.3) mg/dL Total Bilirubin (0.2-1.3) mg/dL AST (17-59) IU/L ALT (<50) IU/L Alkaline Phosphatase (38-126) U/L Total Creatine Kinase (55-170) U/L CK-MB (CK-2) (<2.37) ng/mL CK-MB (CK-2) Rel Index (1.5-5.0) % Troponin I (0.01-0.034) ng/mL NT-Pro-B Natriuret Pep (<125) pg/mL Total Protein (6.3-8.2) g/dL Albumin (3.5-5.0) g/dL Globulin (1.7-4.1) g/dL Albumin/Globulin Ratio (1.0-2.8) Procalcitonin (<0.5) ng/mL Urine Color Urine Appearance Urine pH (4.5-8.0) Ur Specific [place] (1.000-1.035) Urine Protein (Negative) Urine Glucose (UA) (Negative) g/dL Urine Ketones (NEGATIVE) Urine Occult Blood (Negative) Urine Nitrate (Negative) Urine Bilirubin (NEGATIVE) Urine Urobilinogen (0.2) E.U./dL Ur Leukocyte Esterase (NEGATIVE) Urine RBC (0-5/HPF) Urine WBC (0-5/HPF) Ur Squamous Epith Cells (0-5/HPF) Ur Transition Epith Cell (0-5/HPF) Ur Renal Epithelial Cell (0-1/HPF) Urine Bacteria (None) WBC Casts (None) Ur Culture Indicated? Chlamy pneumoniae PCR Not detected (Not Detect) Adenovirus (PCR) Not detected (Not Detect) B. pertussis DNA (PCR) Not detected (Not Detecte) B.parapertussis DNA PCR Not detected (Not Detecte) Coronavirus OC43 (PCR) Not detected (Not Detect) Coronavirus HKU1 (PCR) Not detected (Not Detect) Coronavirus 229E (PCR) Not detected (Not Detect) SARS-CoV-2 (PCR) Not detected (Not Detecte) Coronavirus NL63 (PCR) Not detected (Not Detect) Human Metapneumovir PCR Not detected (Not Detect) Influenza Type A (PCR) Not detected (Not Detect) Influenza Type B (PCR) Not detected (Not Detect) M. pneumoniae (PCR) Not detected (Not Detect) Parainfluenza 1 (PCR) Not detected (Not Detect) Parainfluenza 2 (PCR) Not detected (Not Detect) Parainfluenza 3 (PCR) Not detected (Not Detect) Parainfluenza 4 (PCR) Not detected (Not Detect) RSV (PCR) Not detected (Not Detect) Entero/Rhino (PCR) Detected H (Not Detect) 03/28/22 03/28/22 03/28/22 Range/Units 19:40 19:40 19:40 WBC 15.7 H (4.5-11.0) X10^3/uL RBC 3.99 L (4.5-5.9) X10^6/uL Hgb 12.0 L (13.5-17.5) g/dL Hct 34.6 L (41-53) % MCV 86.7 (80-100) fL MCH 29.9 (26-34) PG MCHC 34.5 (30-36) % RDW 14.9 H (11.6-14.8) % Plt Count 287 (150-400) X10^3/uL Neut % (Auto) 88.0 H (50-75) % Lymph % (Auto) 4.5 L (25-40) % Story % (Auto) 7.4 (3-14) % Eos % (Auto) 0.0 L (2-4) % Baso % (Auto) 0.1 (0-2) % Neut # (Auto) 78895 H (6042-5567) /uL Lymph # (Auto) 700 L (6548-4200) /uL Story # (Auto) 1200 H (0-900) /uL Eos # (Auto) 0 (0-450) /uL Baso # (Auto) 0 (0-100) /uL ABG pH (7.35-7.45) ABG pCO2 (35-45) mmHg ABG pO2 (80-100) mmHg ABG HCO3 (22-26) mmol/L ABG Total CO2 (21-31) mmol/L ABG O2 Saturation (95-100) % ABG Base Excess (-2-2) mmol/L FiO2 Sodium 132 L (137-145) mmol/L Potassium 4.5 (3.4-5.1) mmol/L Chloride 93 L (98-107) mmol/L Carbon Dioxide 23 (22-32) mmol/L BUN 43 H (9-20) mg/dL Creatinine 1.17 (0.66-1.25) mg/dL Estimated GFR > 60 (>60) mL/min BUN/Creatinine Ratio 36.8 H (6-22) Glucose 175 H (80-110) mg/dL Lactate (0.7-2.1) mmol/L Calcium 8.3 L (8.4-10.2) mg/dL Magnesium 1.4 L (1.6-2.3) mg/dL Total Bilirubin 0.4 (0.2-1.3) mg/dL AST 53 (17-59) IU/L ALT 30 (<50) IU/L Alkaline Phosphatase 76 (38-126) U/L Total Creatine Kinase 813 H (55-170) U/L CK-MB (CK-2) 16.20 H (<2.37) ng/mL CK-MB (CK-2) Rel Index 2.0 (1.5-5.0) % Troponin I 0.064 H (0.01-0.034) ng/mL NT-Pro-B Natriuret Pep (<125) pg/mL Total Protein 8.0 (6.3-8.2) g/dL Albumin 4.1 (3.5-5.0) g/dL Globulin 3.9 (1.7-4.1) g/dL Albumin/Globulin Ratio 1.1 (1.0-2.8) Procalcitonin (<0.5) ng/mL Urine Color Yellow Urine Appearance Sl cloudy Urine pH 5.0 (4.5-8.0) Ur Specific [place] 1.025 (1.000-1.035) Urine Protein 3+ H (Negative) Urine Glucose (UA) Trace H (Negative) g/dL Urine Ketones Negative (NEGATIVE) Urine Occult Blood 2+ H (Negative) Urine Nitrate Negative (Negative) Urine Bilirubin Negative (NEGATIVE) Urine Urobilinogen 0.2 (0.2) E.U./dL Ur Leukocyte Esterase 1+ H (NEGATIVE) Urine RBC 0-1/hpf D (0-5/HPF) Urine WBC 30-100/hpf H (0-5/HPF) Ur Squamous Epith Cells None seen (0-5/HPF) Ur Transition Epith Cell 0-1/hpf (0-5/HPF) Ur Renal Epithelial Cell 0-1/hpf (0-1/HPF) Urine Bacteria Many (>30) H (None) WBC Casts 1-5/lpf H (None) Ur Culture Indicated? Specimen cultured Chlamy pneumoniae PCR (Not Detect) Adenovirus (PCR) (Not Detect) B. pertussis DNA (PCR) (Not Detecte) B.parapertussis DNA PCR (Not Detecte) Coronavirus OC43 (PCR) (Not Detect) Coronavirus HKU1 (PCR) (Not Detect) Coronavirus 229E (PCR) (Not Detect) SARS-CoV-2 (PCR) (Not Detecte) Coronavirus NL63 (PCR) (Not Detect) Human Metapneumovir PCR (Not Detect) Influenza Type A (PCR) (Not Detect) Influenza Type B (PCR) (Not Detect) M. pneumoniae (PCR) (Not Detect) Parainfluenza 1 (PCR) (Not Detect) Parainfluenza 2 (PCR) (Not Detect) Parainfluenza 3 (PCR) (Not Detect) Parainfluenza 4 (PCR) (Not Detect) RSV (PCR) (Not Detect) Entero/Rhino (PCR) (Not Detect) 03/28/22 03/29/22 03/29/22 Range/Units 19:40 06:55 06:55 WBC 9.5 (4.5-11.0) X10^3/uL RBC 3.73 L (4.5-5.9) X10^6/uL Hgb 11.1 L (13.5-17.5) g/dL Hct 32.4 L (41-53) % MCV 86.7 (80-100) fL MCH 29.7 (26-34) PG MCHC 34.3 (30-36) % RDW 15.2 H (11.6-14.8) % Plt Count 276 (150-400) X10^3/uL Neut % (Auto) 83.4 H (50-75) % Lymph % (Auto) 7.6 L (25-40) % Story % (Auto) 8.5 (3-14) % Eos % (Auto) 0.2 L (2-4) % Baso % (Auto) 0.3 (0-2) % Neut # (Auto) 7900 H (5020-4135) /uL Lymph # (Auto) 700 L (4701-0289) /uL Story # (Auto) 800 (0-900) /uL Eos # (Auto) 0 (0-450) /uL Baso # (Auto) 0 (0-100) /uL ABG pH (7.35-7.45) ABG pCO2 (35-45) mmHg ABG pO2 (80-100) mmHg ABG HCO3 (22-26) mmol/L ABG Total CO2 (21-31) mmol/L ABG O2 Saturation (95-100) % ABG Base Excess (-2-2) mmol/L FiO2 Sodium 133 L (137-145) mmol/L Potassium 4.1 (3.4-5.1) mmol/L Chloride 95 L (98-107) mmol/L Carbon Dioxide 26 (22-32) mmol/L BUN 40 H (9-20) mg/dL Creatinine 1.05 (0.66-1.25) mg/dL Estimated GFR > 60 (>60) mL/min BUN/Creatinine Ratio 38.1 H (6-22) Glucose 170 H (80-110) mg/dL Lactate (0.7-2.1) mmol/L Calcium 8.0 L (8.4-10.2) mg/dL Magnesium 1.1 L (1.6-2.3) mg/dL Total Bilirubin 0.5 (0.2-1.3) mg/dL AST 47 (17-59) IU/L ALT 30 (<50) IU/L Alkaline Phosphatase 68 (38-126) U/L Total Creatine Kinase (55-170) U/L CK-MB (CK-2) (<2.37) ng/mL CK-MB (CK-2) Rel Index (1.5-5.0) % Troponin I (0.01-0.034) ng/mL NT-Pro-B Natriuret Pep (<125) pg/mL Total Protein 7.2 (6.3-8.2) g/dL Albumin 3.8 (3.5-5.0) g/dL Globulin 3.4 (1.7-4.1) g/dL Albumin/Globulin Ratio 1.1 (1.0-2.8) Procalcitonin 1.00 H (<0.5) ng/mL Urine Color Urine Appearance Urine pH (4.5-8.0) Ur Specific [place] (1.000-1.035) Urine Protein (Negative) Urine Glucose (UA) (Negative) g/dL Urine Ketones (NEGATIVE) Urine Occult Blood (Negative) Urine Nitrate (Negative) Urine Bilirubin (NEGATIVE) Urine Urobilinogen (0.2) E.U./dL Ur Leukocyte Esterase (NEGATIVE) Urine RBC (0-5/HPF) Urine WBC (0-5/HPF) Ur Squamous Epith Cells (0-5/HPF) Ur Transition Epith Cell (0-5/HPF) Ur Renal Epithelial Cell (0-1/HPF) Urine Bacteria (None) WBC Casts (None) Ur Culture Indicated? Chlamy pneumoniae PCR (Not Detect) Adenovirus (PCR) (Not Detect) B. pertussis DNA (PCR) (Not Detecte) B.parapertussis DNA PCR (Not Detecte) Coronavirus OC43 (PCR) (Not Detect) Coronavirus HKU1 (PCR) (Not Detect) Coronavirus 229E (PCR) (Not Detect) SARS-CoV-2 (PCR) (Not Detecte) Coronavirus NL63 (PCR) (Not Detect) Human Metapneumovir PCR (Not Detect) Influenza Type A (PCR) (Not Detect) Influenza Type B (PCR) (Not Detect) M. pneumoniae (PCR) (Not Detect) Parainfluenza 1 (PCR) (Not Detect) Parainfluenza 2 (PCR) (Not Detect) Parainfluenza 3 (PCR) (Not Detect) Parainfluenza 4 (PCR) (Not Detect) RSV (PCR) (Not Detect) Entero/Rhino (PCR) (Not Detect) 03/30/22 03/30/22 03/30/22 Range/Units 09:07 09:07 09:07 WBC 10.6 (4.5-11.0) X10^3/uL RBC 3.65 L (4.5-5.9) X10^6/uL Hgb 10.9 L (13.5-17.5) g/dL Hct 31.4 L (41-53) % MCV 86.0 (80-100) fL MCH 29.9 (26-34) PG MCHC 34.8 (30-36) % RDW 14.8 (11.6-14.8) % Plt Count 283 (150-400) X10^3/uL Neut % (Auto) 90.5 H (50-75) % Lymph % (Auto) 4.2 L (25-40) % Story % (Auto) 5.2 (3-14) % Eos % (Auto) 0.0 L (2-4) % Baso % (Auto) 0.1 (0-2) % Neut # (Auto) 9500 H (5136-7112) /uL Lymph # (Auto) 400 L (9072-7347) /uL Story # (Auto) 600 (0-900) /uL Eos # (Auto) 0 (0-450) /uL Baso # (Auto) 0 (0-100) /uL ABG pH (7.35-7.45) ABG pCO2 (35-45) mmHg ABG pO2 (80-100) mmHg ABG HCO3 (22-26) mmol/L ABG Total CO2 (21-31) mmol/L ABG O2 Saturation (95-100) % ABG Base Excess (-2-2) mmol/L FiO2 Sodium 131 L (137-145) mmol/L Potassium 4.2 (3.4-5.1) mmol/L Chloride 96 L (98-107) mmol/L Carbon Dioxide 25 (22-32) mmol/L BUN 28 H (9-20) mg/dL Creatinine 0.75 (0.66-1.25) mg/dL Estimated GFR > 60 (>60) mL/min BUN/Creatinine Ratio 37.3 H (6-22) Glucose 197 H (80-110) mg/dL Lactate (0.7-2.1) mmol/L Calcium 8.1 L (8.4-10.2) mg/dL Magnesium 1.0 L (1.6-2.3) mg/dL Total Bilirubin (0.2-1.3) mg/dL AST (17-59) IU/L ALT (<50) IU/L Alkaline Phosphatase (38-126) U/L Total Creatine Kinase (55-170) U/L CK-MB (CK-2) (<2.37) ng/mL CK-MB (CK-2) Rel Index (1.5-5.0) % Troponin I (0.01-0.034) ng/mL NT-Pro-B Natriuret Pep (<125) pg/mL Total Protein (6.3-8.2) g/dL Albumin (3.5-5.0) g/dL Globulin (1.7-4.1) g/dL Albumin/Globulin Ratio (1.0-2.8) Procalcitonin (<0.5) ng/mL Urine Color Urine Appearance Urine pH (4.5-8.0) Ur Specific [place] (1.000-1.035) Urine Protein (Negative) Urine Glucose (UA) (Negative) g/dL Urine Ketones (NEGATIVE) Urine Occult Blood (Negative) Urine Nitrate (Negative) Urine Bilirubin (NEGATIVE) Urine Urobilinogen (0.2) E.U./dL Ur Leukocyte Esterase (NEGATIVE) Urine RBC (0-5/HPF) Urine WBC (0-5/HPF) Ur Squamous Epith Cells (0-5/HPF) Ur Transition Epith Cell (0-5/HPF) Ur Renal Epithelial Cell (0-1/HPF) Urine Bacteria (None) WBC Casts (None) Ur Culture Indicated? Chlamy pneumoniae PCR (Not Detect) Adenovirus (PCR) (Not Detect) B. pertussis DNA (PCR) (Not Detecte) B.parapertussis DNA PCR (Not Detecte) Coronavirus OC43 (PCR) (Not Detect) Coronavirus HKU1 (PCR) (Not Detect) Coronavirus 229E (PCR) (Not Detect) SARS-CoV-2 (PCR) (Not Detecte) Coronavirus NL63 (PCR) (Not Detect) Human Metapneumovir PCR (Not Detect) Influenza Type A (PCR) (Not Detect) Influenza Type B (PCR) (Not Detect) M. pneumoniae (PCR) (Not Detect) Parainfluenza 1 (PCR) (Not Detect) Parainfluenza 2 (PCR) (Not Detect) Parainfluenza 3 (PCR) (Not Detect) Parainfluenza 4 (PCR) (Not Detect) RSV (PCR) (Not Detect) Entero/Rhino (PCR) (Not Detect) Point of Care Testing Glucose POC 152 MDM Narrative Medical decision making narrative: Patient signed out to me by Dr. Flores. I have seen evaluated patient my self. Awake alert answering questions following commands his golf course ranger strength is equal bilaterally. Discussed case with [facility] neurosurgery has reviewed imaging he will go tomorrow [facility] tomorrow morning. Accepting doctor is Dr. Belkys Friend. I personally did not speak with him but according to transfer center as he has been excepted. Request MRI in the morning if able. The patient was lying on left side noted to need increasing oxygen and remained hypoxic. Repeat chest x-ray appears increased size and pneumothorax and appears the pigtail catheter has come out. Chest tube is placed by myself. The patien t tolerated procedure very well. Repeat chest x-ray confirms his chest tube placement in improved pneumothorax. 03/29/22 Marcella: Patient signed out to Dr. Naranjo. Accepted by Dr. Peters for transfer. Okay I spoke with Neurosurgery, Dr. Peters he will speak with the ED doc and asks for ED to ED transfer. He will speak with the doc at [place]. We discussed dexamethasone he is comfortable with that agrees 4 mg of dex p.o. q.6 hours, discussed that we reinstated patient has normal anti seizure medication they did received Levaquin for possible UTI. We also reviewed that patient's catheter appeared to have come out and chest tube was replaced overnight. Has not had repeat head CT imaging since 5:00 p.m. yesterday. No request for additional. Patient is accepted for transfer away the hear back from coordinator for when we can arrange transport. Coordinator called back, the physician responsible for allowing patients to come as ED to ED states patient does not meet criteria at this time. We will wait for bed assignment before transferring. Patient has been stable during his stay today, we did restart his home medications including his zonisamide, his pain medications and he is receiving IV Dilaudid as needed for pain. Patient signed out to Dr. Flores while awaiting placement. <Blu Aguilar, - Last Filed: 03/30/22 11:55> Lab Data Labs: Lab Results 03/28/22 03/28/22 03/28/22 Range/Units 16:55 16:55 16:55 WBC 18.3 H (4.5-11.0) X10^3/uL RBC 4.32 L (4.5-5.9) X10^6/uL Hgb 12.7 L (13.5-17.5) g/dL Hct 37.9 L (41-53) % MCV 87.8 (80-100) fL MCH 29.5 (26-34) PG MCHC 33.5 (30-36) % RDW 15.2 H (11.6-14.8) % Plt Count 328 (150-400) X10^3/uL Neut % (Auto) 88.5 H (50-75) % Lymph % (Auto) 4.0 L (25-40) % Story % (Auto) 7.4 (3-14) % Eos % (Auto) 0.0 L (2-4) % Baso % (Auto) 0.1 (0-2) % Neut # (Auto) 67255 H (9019-8447) /uL Lymph # (Auto) 700 L (8052-0394) /uL Story # (Auto) 1400 H (0-900) /uL Eos # (Auto) 0 (0-450) /uL Baso # (Auto) 0 (0-100) /uL ABG pH (7.35-7.45) ABG pCO2 (35-45) mmHg ABG pO2 (80-100) mmHg ABG HCO3 (22-26) mmol/L ABG Total CO2 (21-31) mmol/L ABG O2 Saturation (95-100) % ABG Base Excess (-2-2) mmol/L FiO2 Sodium 133 L (137-145) mmol/L Potassium 4.6 (3.4-5.1) mmol/L Chloride 93 L (98-107) mmol/L Carbon Dioxide 21 L (22-32) mmol/L BUN 43 H (9-20) mg/dL Creatinine 1.13 (0.66-1.25) mg/dL Estimated GFR > 60 (>60) mL/min BUN/Creatinine Ratio 38.1 H (6-22) Glucose 214 H (80-110) mg/dL Lactate 3.4 H (0.7-2.1) mmol/L Calcium 8.8 (8.4-10.2) mg/dL Magnesium 0.6 L* (1.6-2.3) mg/dL Total Bilirubin 0.7 (0.2-1.3) mg/dL AST 56 (17-59) IU/L ALT 32 (<50) IU/L Alkaline Phosphatase 79 (38-126) U/L Total Creatine Kinase 835 H (55-170) U/L CK-MB (CK-2) 15.90 H (<2.37) ng/mL CK-MB (CK-2) Rel Index 1.9 (1.5-5.0) % Troponin I 0.056 H (0.01-0.034) ng/mL NT-Pro-B Natriuret Pep 3060 H (<125) pg/mL Total Protein 8.8 H (6.3-8.2) g/dL Albumin 4.5 (3.5-5.0) g/dL Globulin 4.3 H (1.7-4.1) g/dL Albumin/Globulin Ratio 1.0 (1.0-2.8) Procalcitonin (<0.5) ng/mL Urine Color Urine Appearance Urine pH (4.5-8.0) Ur Specific [place] (1.000-1.035) Urine Protein (Negative) Urine Glucose (UA) (Negative) g/dL Urine Ketones (NEGATIVE) Urine Occult Blood (Negative) Urine Nitrate (Negative) Urine Bilirubin (NEGATIVE) Urine Urobilinogen (0.2) E.U./dL Ur Leukocyte Esterase (NEGATIVE) Urine RBC (0-5/HPF) Urine WBC (0-5/HPF) Ur Squamous Epith Cells (0-5/HPF) Ur Transition Epith Cell (0-5/HPF) Ur Renal Epithelial Cell (0-1/HPF) Urine Bacteria (None) WBC Casts (None) Ur Culture Indicated? Chlamy pneumoniae PCR (Not Detect) Adenovirus (PCR) (Not Detect) B. pertussis DNA (PCR) (Not Detecte) B.parapertussis DNA PCR (Not Detecte) Coronavirus OC43 (PCR) (Not Detect) Coronavirus HKU1 (PCR) (Not Detect) Coronavirus 229E (PCR) (Not Detect) SARS-CoV-2 (PCR) (Not Detecte) Coronavirus NL63 (PCR) (Not Detect) Human Metapneumovir PCR (Not Detect) Influenza Type A (PCR) (Not Detect) Influenza Type B (PCR) (Not Detect) M. pneumoniae (PCR) (Not Detect) Parainfluenza 1 (PCR) (Not Detect) Parainfluenza 2 (PCR) (Not Detect) Parainfluenza 3 (PCR) (Not Detect) Parainfluenza 4 (PCR) (Not Detect) RSV (PCR) (Not Detect) Entero/Rhino (PCR) (Not Detect) 03/28/22 03/28/22 03/28/22 Range/Units 17:10 18:13 19:40 WBC (4.5-11.0) X10^3/uL RBC (4.5-5.9) X10^6/uL Hgb (13.5-17.5) g/dL Hct (41-53) % MCV (80-100) fL MCH (26-34) PG MCHC (30-36) % RDW (11.6-14.8) % Plt Count (150-400) X10^3/uL Neut % (Auto) (50-75) % Lymph % (Auto) (25-40) % Story % (Auto) (3-14) % Eos % (Auto) (2-4) % Baso % (Auto) (0-2) % Neut # (Auto) (4146-0030) /uL Lymph # (Auto) (3171-5943) /uL Story # (Auto) (0-900) /uL Eos # (Auto) (0-450) /uL Baso # (Auto) (0-100) /uL ABG pH 7.39 (7.35-7.45) ABG pCO2 32.2 L (35-45) mmHg ABG pO2 77 L (80-100) mmHg ABG HCO3 20 L (22-26) mmol/L ABG Total CO2 21 (21-31) mmol/L ABG O2 Saturation 95 (95-100) % ABG Base Excess -5.0 L (-2-2) mmol/L FiO2 28 Sodium (137-145) mmol/L Potassium (3.4-5.1) mmol/L Chloride (98-107) mmol/L Carbon Dioxide (22-32) mmol/L BUN (9-20) mg/dL Creatinine (0.66-1.25) mg/dL Estimated GFR (>60) mL/min BUN/Creatinine Ratio (6-22) Glucose (80-110) mg/dL Lactate 1.8 (0.7-2.1) mmol/L Calcium (8.4-10.2) mg/dL Magnesium (1.6-2.3) mg/dL Total Bilirubin (0.2-1.3) mg/dL AST (17-59) IU/L ALT (<50) IU/L Alkaline Phosphatase (38-126) U/L Total Creatine Kinase (55-170) U/L CK-MB (CK-2) (<2.37) ng/mL CK-MB (CK-2) Rel Index (1.5-5.0) % Troponin I (0.01-0.034) ng/mL NT-Pro-B Natriuret Pep (<125) pg/mL Total Protein (6.3-8.2) g/dL Albumin (3.5-5.0) g/dL Globulin (1.7-4.1) g/dL Albumin/Globulin Ratio (1.0-2.8) Procalcitonin (<0.5) ng/mL Urine Color Urine Appearance Urine pH (4.5-8.0) Ur Specific [place] (1.000-1.035) Urine Protein (Negative) Urine Glucose (UA) (Negative) g/dL Urine Ketones (NEGATIVE) Urine Occult Blood (Negative) Urine Nitrate (Negative) Urine Bilirubin (NEGATIVE) Urine Urobilinogen (0.2) E.U./dL Ur Leukocyte Esterase (NEGATIVE) Urine RBC (0-5/HPF) Urine WBC (0-5/HPF) Ur Squamous Epith Cells (0-5/HPF) Ur Transition Epith Cell (0-5/HPF) Ur Renal Epithelial Cell (0-1/HPF) Urine Bacteria (None) WBC Casts (None) Ur Culture Indicated? Chlamy pneumoniae PCR Not detected (Not Detect) Adenovirus (PCR) Not detected (Not Detect) B. pertussis DNA (PCR) Not detected (Not Detecte) B.parapertussis DNA PCR Not detected (Not Detecte) Coronavirus OC43 (PCR) Not detected (Not Detect) Coronavirus HKU1 (PCR) Not detected (Not Detect) Coronavirus 229E (PCR) Not detected (Not Detect) SARS-CoV-2 (PCR) Not detected (Not Detecte) Coronavirus NL63 (PCR) Not detected (Not Detect) Human Metapneumovir PCR Not detected (Not Detect) Influenza Type A (PCR) Not detected (Not Detect) Influenza Type B (PCR) Not detected (Not Detect) M. pneumoniae (PCR) Not detected (Not Detect) Parainfluenza 1 (PCR) Not detected (Not Detect) Parainfluenza 2 (PCR) Not detected (Not Detect) Parainfluenza 3 (PCR) Not detected (Not Detect) Parainfluenza 4 (PCR) Not detected (Not Detect) RSV (PCR) Not detected (Not Detect) Entero/Rhino (PCR) Detected H (Not Detect) 03/28/22 03/28/22 03/28/22 Range/Units 19:40 19:40 19:40 WBC 15.7 H (4.5-11.0) X10^3/uL RBC 3.99 L (4.5-5.9) X10^6/uL Hgb 12.0 L (13.5-17.5) g/dL Hct 34.6 L (41-53) % MCV 86.7 (80-100) fL MCH 29.9 (26-34) PG MCHC 34.5 (30-36) % RDW 14.9 H (11.6-14.8) % Plt Count 287 (150-400) X10^3/uL Neut % (Auto) 88.0 H (50-75) % Lymph % (Auto) 4.5 L (25-40) % Story % (Auto) 7.4 (3-14) % Eos % (Auto) 0.0 L (2-4) % Baso % (Auto) 0.1 (0-2) % Neut # (Auto) 52518 H (2425-5922) /uL Lymph # (Auto) 700 L (1973-7043) /uL Story # (Auto) 1200 H (0-900) /uL Eos # (Auto) 0 (0-450) /uL Baso # (Auto) 0 (0-100) /uL ABG pH (7.35-7.45) ABG pCO2 (35-45) mmHg ABG pO2 (80-100) mmHg ABG HCO3 (22-26) mmol/L ABG Total CO2 (21-31) mmol/L ABG O2 Saturation (95-100) % ABG Base Excess (-2-2) mmol/L FiO2 Sodium 132 L (137-145) mmol/L Potassium 4.5 (3.4-5.1) mmol/L Chloride 93 L (98-107) mmol/L Carbon Dioxide 23 (22-32) mmol/L BUN 43 H (9-20) mg/dL Creatinine 1.17 (0.66-1.25) mg/dL Estimated GFR > 60 (>60) mL/min BUN/Creatinine Ratio 36.8 H (6-22) Glucose 175 H (80-110) mg/dL Lactate (0.7-2.1) mmol/L Calcium 8.3 L (8.4-10.2) mg/dL Magnesium 1.4 L (1.6-2.3) mg/dL Total Bilirubin 0.4 (0.2-1.3) mg/dL AST 53 (17-59) IU/L ALT 30 (<50) IU/L Alkaline Phosphatase 76 (38-126) U/L Total Creatine Kinase 813 H (55-170) U/L CK-MB (CK-2) 16.20 H (<2.37) ng/mL CK-MB (CK-2) Rel Index 2.0 (1.5-5.0) % Troponin I 0.064 H (0.01-0.034) ng/mL NT-Pro-B Natriuret Pep (<125) pg/mL Total Protein 8.0 (6.3-8.2) g/dL Albumin 4.1 (3.5-5.0) g/dL Globulin 3.9 (1.7-4.1) g/dL Albumin/Globulin Ratio 1.1 (1.0-2.8) Procalcitonin (<0.5) ng/mL Urine Color Yellow Urine Appearance Sl cloudy Urine pH 5.0 (4.5-8.0) Ur Specific [place] 1.025 (1.000-1.035) Urine Protein 3+ H (Negative) Urine Glucose (UA) Trace H (Negative) g/dL Urine Ketones Negative (NEGATIVE) Urine Occult Blood 2+ H (Negative) Urine Nitrate Negative (Negative) Urine Bilirubin Negative (NEGATIVE) Urine Urobilinogen 0.2 (0.2) E.U./dL Ur Leukocyte Esterase 1+ H (NEGATIVE) Urine RBC 0-1/hpf D (0-5/HPF) Urine WBC 30-100/hpf H (0-5/HPF) Ur Squamous Epith Cells None seen (0-5/HPF) Ur Transition Epith Cell 0-1/hpf (0-5/HPF) Ur Renal Epithelial Cell 0-1/hpf (0-1/HPF) Urine Bacteria Many (>30) H (None) WBC Casts 1-5/lpf H (None) Ur Culture Indicated? Specimen cultured Chlamy pneumoniae PCR (Not Detect) Adenovirus (PCR) (Not Detect) B. pertussis DNA (PCR) (Not Detecte) B.parapertussis DNA PCR (Not Detecte) Coronavirus OC43 (PCR) (Not Detect) Coronavirus HKU1 (PCR) (Not Detect) Coronavirus 229E (PCR) (Not Detect) SARS-CoV-2 (PCR) (Not Detecte) Coronavirus NL63 (PCR) (Not Detect) Human Metapneumovir PCR (Not Detect) Influenza Type A (PCR) (Not Detect) Influenza Type B (PCR) (Not Detect) M. pneumoniae (PCR) (Not Detect) Parainfluenza 1 (PCR) (Not Detect) Parainfluenza 2 (PCR) (Not Detect) Parainfluenza 3 (PCR) (Not Detect) Parainfluenza 4 (PCR) (Not Detect) RSV (PCR) (Not Detect) Entero/Rhino (PCR) (Not Detect) 03/28/22 03/29/22 03/29/22 Range/Units 19:40 06:55 06:55 WBC 9.5 (4.5-11.0) X10^3/uL RBC 3.73 L (4.5-5.9) X10^6/uL Hgb 11.1 L (13.5-17.5) g/dL Hct 32.4 L (41-53) % MCV 86.7 (80-100) fL MCH 29.7 (26-34) PG MCHC 34.3 (30-36) % RDW 15.2 H (11.6-14.8) % Plt Count 276 (150-400) X10^3/uL Neut % (Auto) 83.4 H (50-75) % Lymph % (Auto) 7.6 L (25-40) % Story % (Auto) 8.5 (3-14) % Eos % (Auto) 0.2 L (2-4) % Baso % (Auto) 0.3 (0-2) % Neut # (Auto) 7900 H (0096-4072) /uL Lymph # (Auto) 700 L (4228-4458) /uL Story # (Auto) 800 (0-900) /uL Eos # (Auto) 0 (0-450) /uL Baso # (Auto) 0 (0-100) /uL ABG pH (7.35-7.45) ABG pCO2 (35-45) mmHg ABG pO2 (80-100) mmHg ABG HCO3 (22-26) mmol/L ABG Total CO2 (21-31) mmol/L ABG O2 Saturation (95-100) % ABG Base Excess (-2-2) mmol/L FiO2 Sodium 133 L (137-145) mmol/L Potassium 4.1 (3.4-5.1) mmol/L Chloride 95 L (98-107) mmol/L Carbon Dioxide 26 (22-32) mmol/L BUN 40 H (9-20) mg/dL Creatinine 1.05 (0.66-1.25) mg/dL Estimated GFR > 60 (>60) mL/min BUN/Creatinine Ratio 38.1 H (6-22) Glucose 170 H (80-110) mg/dL Lactate (0.7-2.1) mmol/L Calcium 8.0 L (8.4-10.2) mg/dL Magnesium 1.1 L (1.6-2.3) mg/dL Total Bilirubin 0.5 (0.2-1.3) mg/dL AST 47 (17-59) IU/L ALT 30 (<50) IU/L Alkaline Phosphatase 68 (38-126) U/L Total Creatine Kinase (55-170) U/L CK-MB (CK-2) (<2.37) ng/mL CK-MB (CK-2) Rel Index (1.5-5.0) % Troponin I (0.01-0.034) ng/mL NT-Pro-B Natriuret Pep (<125) pg/mL Total Protein 7.2 (6.3-8.2) g/dL Albumin 3.8 (3.5-5.0) g/dL Globulin 3.4 (1.7-4.1) g/dL Albumin/Globulin Ratio 1.1 (1.0-2.8) Procalcitonin 1.00 H (<0.5) ng/mL Urine Color Urine Appearance Urine pH (4.5-8.0) Ur Specific [place] (1.000-1.035) Urine Protein (Negative) Urine Glucose (UA) (Negative) g/dL Urine Ketones (NEGATIVE) Urine Occult Blood (Negative) Urine Nitrate (Negative) Urine Bilirubin (NEGATIVE) Urine Urobilinogen (0.2) E.U./dL Ur Leukocyte Esterase (NEGATIVE) Urine RBC (0-5/HPF) Urine WBC (0-5/HPF) Ur Squamous Epith Cells (0-5/HPF) Ur Transition Epith Cell (0-5/HPF) Ur Renal Epithelial Cell (0-1/HPF) Urine Bacteria (None) WBC Casts (None) Ur Culture Indicated? Chlamy pneumoniae PCR (Not Detect) Adenovirus (PCR) (Not Detect) B. pertussis DNA (PCR) (Not Detecte) B.parapertussis DNA PCR (Not Detecte) Coronavirus OC43 (PCR) (Not Detect) Coronavirus HKU1 (PCR) (Not Detect) Coronavirus 229E (PCR) (Not Detect) SARS-CoV-2 (PCR) (Not Detecte) Coronavirus NL63 (PCR) (Not Detect) Human Metapneumovir PCR (Not Detect) Influenza Type A (PCR) (Not Detect) Influenza Type B (PCR) (Not Detect) M. pneumoniae (PCR) (Not Detect) Parainfluenza 1 (PCR) (Not Detect) Parainfluenza 2 (PCR) (Not Detect) Parainfluenza 3 (PCR) (Not Detect) Parainfluenza 4 (PCR) (Not Detect) RSV (PCR) (Not Detect) Entero/Rhino (PCR) (Not Detect) 03/30/22 03/30/22 03/30/22 Range/Units 09:07 09:07 09:07 WBC 10.6 (4.5-11.0) X10^3/uL RBC 3.65 L (4.5-5.9) X10^6/uL Hgb 10.9 L (13.5-17.5) g/dL Hct 31.4 L (41-53) % MCV 86.0 (80-100) fL MCH 29.9 (26-34) PG MCHC 34.8 (30-36) % RDW 14.8 (11.6-14.8) % Plt Count 283 (150-400) X10^3/uL Neut % (Auto) 90.5 H (50-75) % Lymph % (Auto) 4.2 L (25-40) % Story % (Auto) 5.2 (3-14) % Eos % (Auto) 0.0 L (2-4) % Baso % (Auto) 0.1 (0-2) % Neut # (Auto) 9500 H (2660-1900) /uL Lymph # (Auto) 400 L (8953-2276) /uL Story # (Auto) 600 (0-900) /uL Eos # (Auto) 0 (0-450) /uL Baso # (Auto) 0 (0-100) /uL ABG pH (7.35-7.45) ABG pCO2 (35-45) mmHg ABG pO2 (80-100) mmHg ABG HCO3 (22-26) mmol/L ABG Total CO2 (21-31) mmol/L ABG O2 Saturation (95-100) % ABG Base Excess (-2-2) mmol/L FiO2 Sodium 131 L (137-145) mmol/L Potassium 4.2 (3.4-5.1) mmol/L Chloride 96 L (98-107) mmol/L Carbon Dioxide 25 (22-32) mmol/L BUN 28 H (9-20) mg/dL Creatinine 0.75 (0.66-1.25) mg/dL Estimated GFR > 60 (>60) mL/min BUN/Creatinine Ratio 37.3 H (6-22) Glucose 197 H (80-110) mg/dL Lactate (0.7-2.1) mmol/L Calcium 8.1 L (8.4-10.2) mg/dL Magnesium 1.0 L (1.6-2.3) mg/dL Total Bilirubin (0.2-1.3) mg/dL AST (17-59) IU/L ALT (<50) IU/L Alkaline Phosphatase (38-126) U/L Total Creatine Kinase (55-170) U/L CK-MB (CK-2) (<2.37) ng/mL CK-MB (CK-2) Rel Index (1.5-5.0) % Troponin I (0.01-0.034) ng/mL NT-Pro-B Natriuret Pep (<125) pg/mL Total Protein (6.3-8.2) g/dL Albumin (3.5-5.0) g/dL Globulin (1.7-4.1) g/dL Albumin/Globulin Ratio (1.0-2.8) Procalcitonin (<0.5) ng/mL Urine Color Urine Appearance Urine pH (4.5-8.0) Ur Specific [place] (1.000-1.035) Urine Protein (Negative) Urine Glucose (UA) (Negative) g/dL Urine Ketones (NEGATIVE) Urine Occult Blood (Negative) Urine Nitrate (Negative) Urine Bilirubin (NEGATIVE) Urine Urobilinogen (0.2) E.U./dL Ur Leukocyte Esterase (NEGATIVE) Urine RBC (0-5/HPF) Urine WBC (0-5/HPF) Ur Squamous Epith Cells (0-5/HPF) Ur Transition Epith Cell (0-5/HPF) Ur Renal Epithelial Cell (0-1/HPF) Urine Bacteria (None) WBC Casts (None) Ur Culture Indicated? Chlamy pneumoniae PCR (Not Detect) Adenovirus (PCR) (Not Detect) B. pertussis DNA (PCR) (Not Detecte) B.parapertussis DNA PCR (Not Detecte) Coronavirus OC43 (PCR) (Not Detect) Coronavirus HKU1 (PCR) (Not Detect) Coronavirus 229E (PCR) (Not Detect) SARS-CoV-2 (PCR) (Not Detecte) Coronavirus NL63 (PCR) (Not Detect) Human Metapneumovir PCR (Not Detect) Influenza Type A (PCR) (Not Detect) Influenza Type B (PCR) (Not Detect) M. pneumoniae (PCR) (Not Detect) Parainfluenza 1 (PCR) (Not Detect) Parainfluenza 2 (PCR) (Not Detect) Parainfluenza 3 (PCR) (Not Detect) Parainfluenza 4 (PCR) (Not Detect) RSV (PCR) (Not Detect) Entero/Rhino (PCR) (Not Detect) Point of Care Testing Glucose POC 152 Imaging Data CXR4: Radiologist's Impression: [address] [address] XRay Report Signed Patient: Shad Street MR#: [id number] : 1950 Acct:[id number] Age/Sex: 71 / M Date of Service: 03/30/22 Loc: ED Accession Number: [id number] ?? Procedure: XR chest 1V Ordering Provider: Blu Aguilar D.O. PROCEDURE:? XR CHEST 1V ? INDICATIONS:? R sided chest tube ? TECHNIQUE:? One view of the chest was acquired.? ? COMPARISON:? [facility], CR, XR CHEST 1V, 03/29/2022, 0:26.? [facility], CR, XR CHEST 1V, 03/29/2022, 1:26. ? FINDINGS:? ? Surgical changes and devices:? Pacemaker.? Right Port-A-Cath is unchanged.? Right chest tube is present overlying the right lower lobe. ? Lungs and pleura:? There is blunting of the left costophrenic angle new compared to prior exam.? There is questionable trace apical pneumothorax. ? Mediastinum:? Mediastinal contours appear normal.? Heart size is normal.? ? Bones and chest wall:? No suspicious bony lesions.? Overlying soft tissues appear unremarkable.? ? IMPRESSION:? Right chest tube with questionable trace apical pneumothorax.? Mild left effusion. ? ? Dictated by: Zoraida Gallagher M.D. on 03/30/2022 at 9:19 ? ? Approved by: Zoraida Gallagher M.D. on 03/30/2022 at 9:22 MDM Narrative Medical decision making narrative: Patient signed out to me by Dr. Flores. I have seen evaluated patient my self. Awake alert answering questions following commands his golf course ranger strength is equal bilaterally. Discussed case with [facility] neurosurgery has reviewed imaging he will go tomorrow [facility] tomorrow morning. Accepting doctor is Dr. Belkys Friend. I personally did not speak with him but according to transfer center as he has been excepted. Request MRI in the morning if able. The patient was lying on left side noted to need increasing oxygen and remained hypoxic. Repeat chest x-ray appears increased size and pneumothorax and appears the pigtail catheter has come out. Chest tube is placed by myself. The patient tolerated procedure very well. Repeat chest x-ray confirms his chest tube placement in improved pneumothorax. 03/29/22 Martínk: Patient signed out to Dr. Naranjo. Accepted by Dr. Peters for transfer. Okay I spoke with Neurosurgery, Dr. Peters he will speak with the ED doc and asks for ED to ED transfer. He will speak with the doc at [place]. We discussed dexamethasone he is comfortable with that agrees 4 mg of dex p.o. q.6 hours, discussed that we reinstated patient has normal anti seizure medication they did received Levaquin for possible UTI. We also reviewed that patient's catheter appeared to have come out and chest tube was replaced overnight. Has not had repeat head CT imaging since 5:00 p.m. yesterday. No request for additional. Patient is accepted for transfer away the hear back from coordinator for when we can arrange transport. Coordinator called back, the physician responsible for allowing patients to come as ED to ED states patient does not meet criteria at this time. We will wait for bed assignment before transferring. Patient has been stable during his stay today, we did restart his home medications including his zonisamide, his pain medications and he is receiving IV Dilaudid as needed for pain. Patient signed out to Dr. Flores while awaiting placement. 03/30/22 Dr aguilar: Received turned over from Dr. Flores. If you patient's history and physical and labs and radiologic studies had been performed up to this point. He has been receiving Levaquin. His urinalysis did show Klebsiella which was susceptible to this. He is also been receiving magnesium replacement. Has SCDs in place for DVT prophylaxis. Repeat chest x-ray today shows vast improvement of his pneumothorax. His chest tube was placed to water-seal and should be re-evaluated on 03/31 with a repeat chest x-ray. Patient is stable. I did discuss the case with Neurosurgery at [facility] you ask that the patient be transferred by late afternoon today so that they can obtain an MRI in preparation for potential surgery tomorrow. Rosario vance is stable for transport. <Mona Naranjo, DO - Last Filed: 04/09/22 11:25> Critical Care Time Critical Care Time: Yes Attestation: The high probability of a clinically significant, sudden or life threatening deterioration of the [oulm, neuro] system(s) required my full and direct attention, intervention and personal management. The aggregate critical care time was [] minutes. This time is in addition to time spent performing reported procedures but includes the following: [x] Data Review and interpretation [x] Patient assessment and monitoring of vital signs [x] Documentation [x] Medication orders and management <Blu Aguilar, DO - Last Filed: 03/30/22 11:55> Critical Care Time Total Critical Care Time: 45 Attestation: The high probability of a clinically significant, sudden or life threatening deterioration of the [oulm, neuro] system(s) required my full and direct attention, intervention and personal management. The aggregate critical care time was [45] minutes. This time is in addition to time spent performing reported procedures but includes the following: [x] Data Review and interpretation [x] Patient assessment and monitoring of vital signs [x] Documentation [x] Medication orders and management Discharge Plan Departure Patient Disposition: [facility] Clinical Impression: Pneumothorax, Hypomagnesemia, Hypoxia, Urinary tract infection, Brain metastasis Prescriptions: No Action metformin 500 mg tablet 1,000 mg PO BIDWMEAL Qty: 360 2RF Rx Instructions: take two tablets twice a day with meals glimepiride 2 mg 2 mg PO BID tamsulosin 0.4 mg 0.4 mg PO DAILY sennosides [senna] 8.6 mg Tablet 8.6 mg PO BID ondansetron 8 mg Tablet,Disintegrating 8 mg PO Q8H PRN (Reason: Nausea) zonisamide 100 mg Capsule 200 mg PO DAILY nitroglycerin 0.4 mg Tablet, Sublingual 0.4 mg SUBLINGUAL Q5M PRN (Reason: Chest Pain) Rx Instructions: do not exceed 3 doses per episode metoprolol tartrate 25 mg Tablet 12.5 mg PO BID Ibuprofen PM 200-25 mg Capsule 2 cap PO BEDTIME magnesium oxide 400 mg magnesium Capsule 400 mg PO BID omeprazole 40 mg capsule,delayed release(DR/EC) 40 mg PO DAILY lisinopril 40 mg tablet 40 mg PO DAILY oxycodone 10 mg tablet 10 mg PO BID morphine 15 mg tablet extended release 15 mg PO BID Referrals: Corky So MD [Primary Care Provider] -
[2022-03-28] MEDS: MAGNESIUM SULFATE 2 GM/50 ML PIGGYBACK IV (18:18)
[2022-03-28] MEDS: FUROSEMIDE 40 MG/4 ML VIAL IV (18:26)
[2022-03-28] MEDS: levoFLOXacin 750 MG/150 ML PIGGYBACK 100 MG IV (18:30)
[2022-03-28] MEDS: LIDOCAINE 2% INJ SDV 20 ML (18:40)
[2022-03-28] MEDS: HYDROMORPHONE 0.5 MG INJ IV ×3 (18:54→22:44)
[2022-03-28] MEDS: HYDROMORPHONE 0.5 MG INJ (18:54)
[2022-03-28 19:00] LABS: Reflexed Lactate in 2 Hours Y
[2022-03-28 19:05] LABS: Adenovirus Not Detected (Not Detect); Coronavirus 229E Not Detected (Not Detect); Coronavirus HKU1 Not Detected (Not Detect); Coronavirus NL 63 Not Detected (Not Detect); Coronavirus OC43 Not Detected (Not Detect); Human Metapneumovirus Not Detected (Not Detect); SARS- CoV-2 Not Detected (Not Detecte)
[2022-03-28 19:06] LABS: B. parapertussis Not Detected (Not Detecte); Bordetella pertussis Not Detected (Not Detecte); Chlamydophila pneumoniae Not Detected (Not Detect); Human Rhinovirus/Enterovirus Detected (Not Detect); Influenza A Not Detected (Not Detect); Influenza B Not Detected (Not Detect); Mycoplasma pneumoniae Not Detected (Not Detect); Parainfluenza Virus 1 Not Detected (Not Detect); Parainfluenza Virus 2 Not Detected (Not Detect); Parainfluenza Virus 3 Not Detected (Not Detect); Parainfluenza Virus 4 Not Detected (Not Detect); Respiratory Syncytial Virus Not Detected (Not Detect)
--- NOTE | 2022-03-28 19:10 | DI.RAD.S_ITS ---
PROCEDURE: XR CHEST 1V INDICATIONS: chest tube TECHNIQUE: One view of the chest was acquired. COMPARISON: [facility], , XR CHEST 1V, 03/28/2022, 17:27. FINDINGS: Surgical changes and devices: There is small bore flexible, probably pigtail chest tube in the right lateral hemithorax, although the pigtail is not formed and a few of the side holes may remain extrapleural. MediPort and pacemaker are also in place. Lungs and pleura: There is been significant decrease in size of the right pneumothorax . The small apical pneumothorax is still visible. Linear opacity seen at the right lung base. Left lung is within normal limits. Mediastinum: Cardiomediastinal contour is stable. Bones and chest wall: No suspicious bony lesions. Overlying soft tissues appear unremarkable. IMPRESSION: 1. Right pigtail chest tube in place with significant decrease in size of right pneumothorax. 2. The right chest tube pigtail is not locked and may dislodge. Dictated by: Eli Costello M.D. on 03/28/2022 at 19:52 Approved by: Eli Costello M.D. on 03/28/2022 at 19:56
--- NOTE | 2022-03-28 19:20 | PC.NURSE ---
At bedside during chest tube insertion procedure by Dr. Flores, pt reports pain during procedure, medications administered, otherwise pt tolerated well.
[2022-03-28 19:53] LABS: Appearance Urine UA SL CLOUDY; Bilirubin Urine UA NEGATIVE (NEGATIVE); Color Urine UA YELLOW; Glucose Urine UA TRACE g/dL (Negative); Ketones Urine UA NEGATIVE (NEGATIVE); Leukocyte Esterase Urine UA 1+ (NEGATIVE); Nitrite Urine UA NEGATIVE (Negative); Occult Blood Urine UA 2+ (Negative); Protein Urine UA 3+ (Negative); Specific Gravity Urine UA 1.025 (1.000-1.035); Urobilinogen Urine UA 0.2 E.U./dL (0.2)
[2022-03-28 19:54] LABS: Add Manual Diff / Slide Review NO; Basophils Absolute Auto 0 /uL (0-100); Basophils Percent Auto 0.1 % (0-2); Eosinophils Absolute Auto 0 /uL (0-450); Hematocrit 34.6 % (41-53); Lymphocytes Absolute Auto 700 /uL (1100-4500); Lymphocytes Percent Auto 4.5 % (25-40); Mean Corpuscular HGB Conc 34.5 % (30-36); Mean Corpuscular Hemoglobin 29.9 PG (26-34); Mean Corpuscular Volume 86.7 fL (80-100); Monocytes Absolute Auto 1200 /uL (0-900); Monocytes Percent Auto 7.4 % (3-14); Neutrophils Absolute Auto 13800 /uL (1500-7000); Platelet Count 287 X10^3/uL (150-400); Red Blood Cell Count 3.99 X10^6/uL (4.5-5.9); Red Cell Distribution Width 14.9 % (11.6-14.8); White Blood Cell Count 15.7 X10^3/uL (4.5-11.0)
[2022-03-28 20:02] LABS: Bacteria Urine Many (>30); Culture Indicated Urine Specimen Cultured; RBC Urine 0-1/HPF (0-5/HPF); Renal Epithelial Cells Urine 0-1/HPF (0-1/HPF); Squamous Epithelial Cell Urine None Seen (0-5/HPF); Transitional Epi Cells Urine 0-1/HPF (0-5/HPF); WBC Urine 30-100/HPF (0-5/HPF); White Blood Cell Casts Urine 1-5/LPF
[2022-03-28 20:06] LABS: Alanine Aminotransferase 30 IU/L (<50); Albumin 4.1 g/dL (3.5-5.0); Albumin Globulin Ratio 1.1 (1.0-2.8); Alkaline Phosphatase 76 U/L (38-126); Aspartate Aminotransferase 53 IU/L (17-59); BUN Creatinine Ratio 36.8 (6-22); Bilirubin Total 0.4 mg/dL (0.2-1.3); Blood Urea Nitrogen 43 mg/dL (9-20); Calcium 8.3 mg/dL (8.4-10.2); Carbon Dioxide 23 mmol/L (22-32); Chloride 93 mmol/L (98-107); Creatine Kinase 813 U/L (55-170); Estimated Glomerular Filt Rate > 60 mL/min (>60); Globulin 3.9 g/dL (1.7-4.1); Glucose 175 mg/dL (80-110); HEMOLYSIS < 15 (0-50); Lactate 2HR (Lactic Acid Rflx) 1.8 mmol/L (0.7-2.1); Magnesium 1.4 mg/dL (1.6-2.3); Potassium 4.5 mmol/L (3.4-5.1); Sodium 132 mmol/L (137-145)
[2022-03-28 20:17] LABS: Troponin I 0.064 ng/mL (0.01-0.034)
--- NOTE | 2022-03-28 20:27 | PC.NURSE ---
Patient's plur-vac was placed on suction as per MD verbal order.
--- NOTE | 2022-03-28 20:29 | PC.NURSE ---
The patient was taken off of oxygen to trial room air. His o2 saturation dipped down to 91% on RA and was placed back on 2L NC. His O2 Saturation went back up to 94%. He appears and reports comfort.
[2022-03-28] MEDS: METOPROLOL TARTRATE 5 MG/5 ML INJ IV (21:05)
--- NOTE | 2022-03-28 23:07 | PC.NURSE ---
Patient transferred from stretcher to hospital bed with x4 RN assist, tolerated well. Repositioned to left lateral per request, new linens. Chest tube remains to 20 suction, air leak noted, pt breathing even and unlabored.
--- NOTE | 2022-03-28 23:18 | PC.NURSE ---
At 17:40 this nurse switched the pt's day container bag to a new one.
[2022-03-29] VITALS (59 sets, daily range): BP systolic 79–151; BP diastolic 49–91; PULSE 63–90; RESP 15–35; TEMP 36.4; O2SAT 88–96
--- NOTE | 2022-03-29 00:25 | DI.RAD.S_ITS ---
PROCEDURE: XR CHEST 1V INDICATIONS: Increased oxygen requirements TECHNIQUE: One view of the chest was acquired. COMPARISON: [facility], CR, XR CHEST 1V, 03/28/2022, 19:09. FINDINGS: Surgical changes and devices: Right lateral pigtail pleural catheter demonstrates interval slight lateral displacement with the tip oriented laterally in the right hemithorax. Right subclavian Port-A-Cath redemonstrated with the tip projecting over the superior vena cava. A left chest wall dual lead pacemaker is again noted. Lungs and pleura: There is a moderate right pneumothorax, increased in size compared to the prior study. There is slight leftward shift of the mediastinum and slight inferior displacement of the right hemidiaphragm suggestive of developing tension. Mediastinum: Mediastinal contours appear normal. Heart size is normal. Bones and chest wall: No suspicious bony lesions. Overlying soft tissues appear unremarkable. IMPRESSION: 1. Moderate-sized right pneumothorax appears increased in size compared to the prior study with suggestion of developing tension. A phone call was placed to Dr. Cloud in the ER on 03/29/2022 at 1:[address] Cloud was reportedly in the process of placing chest tube. Dictated by: Jam Austin M.D. on 03/29/2022 at 1:17 Approved by: Jam Austin M.D. on 03/29/2022 at 1:23
--- NOTE | 2022-03-29 01:32 | DI.RAD.S_ITS ---
PROCEDURE: XR CHEST 1V INDICATIONS: Chest tube placement TECHNIQUE: One view of the chest was acquired. COMPARISON: [facility], CR, XR CHEST 1V, 03/29/2022, 0:26. FINDINGS: Surgical changes and devices: There is a new right chest tube with the tip projecting medially over the right hilar region. Right subclavian Port-A-Cath appears unchanged. Left chest wall dual lead pacemaker also appears unchanged. Lungs and pleura: No definite residual pneumothorax identified. There are increased right infrahilar opacities likely representing atelectasis. Mediastinum: Mediastinal contours appear unchanged. Heart size is normal. Bones and chest wall: No suspicious bony lesions. Overlying soft tissues appear unremarkable. IMPRESSION: 1. New right chest tube with resolution of previously visualized right pneumothorax. 2. Increased right infrahilar opacities likely represent atelectasis. Dictated by: Jam Austin M.D. on 03/29/2022 at 2:14 Approved by: Jam Austin M.D. on 03/29/2022 at 2:16
[2022-03-29] MEDS: propofoL 200 MG/20 ML VIAL 125 MG IV (01:35)
[2022-03-29] MEDS: LIDOCAINE 2% INJ MDV 20ML SUBCUT (01:36)
--- NOTE | 2022-03-29 01:49 | PC.NURSE ---
Patient started to require more oxygen going from 2L by NC to 6L by NC with minimal improvement in O2 saturation. Attempted repositioning patient and RT re-eval without no significant change. Notified provider who ordered chest xray that demonstrated movement of chest tube out of place. Under conscious sedation provider pulled and replaced chest tube without complications. New chest tube attached to pleura-vac and wall suction, repeat xray performed.
[2022-03-29] MEDS: HYDROMORPHONE 0.5 MG INJ IV ×3 (01:56→14:16)
[2022-03-29] MEDS: FUROSEMIDE 40 MG/4 ML VIAL IV (03:19)
[2022-03-29 07:04] LABS: Add Manual Diff / Slide Review NO; Basophils Absolute Auto 0 /uL (0-100); Basophils Percent Auto 0.3 % (0-2); Eosinophils Absolute Auto 0 /uL (0-450); Eosinophils Percent Auto 0.2 % (2-4); Hematocrit 32.4 % (41-53); Hemoglobin 11.1 g/dL (13.5-17.5); Lymphocytes Absolute Auto 700 /uL (1100-4500); Lymphocytes Percent Auto 7.6 % (25-40); Mean Corpuscular HGB Conc 34.3 % (30-36); Mean Corpuscular Hemoglobin 29.7 PG (26-34); Mean Corpuscular Volume 86.7 fL (80-100); Monocytes Absolute Auto 800 /uL (0-900); Monocytes Percent Auto 8.5 % (3-14); Neutrophils Absolute Auto 7900 /uL (1500-7000); Neutrophils Percent Auto 83.4 % (50-75); Platelet Count 276 X10^3/uL (150-400); Red Blood Cell Count 3.73 X10^6/uL (4.5-5.9); Red Cell Distribution Width 15.2 % (11.6-14.8); White Blood Cell Count 9.5 X10^3/uL (4.5-11.0)
[2022-03-29 07:19] LABS: Alanine Aminotransferase 30 IU/L (<50); Albumin 3.8 g/dL (3.5-5.0); Albumin Globulin Ratio 1.1 (1.0-2.8); Alkaline Phosphatase 68 U/L (38-126); Aspartate Aminotransferase 47 IU/L (17-59); BUN Creatinine Ratio 38.1 (6-22); Bilirubin Total 0.5 mg/dL (0.2-1.3); Blood Urea Nitrogen 40 mg/dL (9-20); Carbon Dioxide 26 mmol/L (22-32); Chloride 95 mmol/L (98-107); Estimated Glomerular Filt Rate > 60 mL/min (>60); Globulin 3.4 g/dL (1.7-4.1); Glucose 170 mg/dL (80-110); HEMOLYSIS < 15 (0-50); Magnesium 1.1 mg/dL (1.6-2.3); Potassium 4.1 mmol/L (3.4-5.1); Sodium 133 mmol/L (137-145); Total Protein 7.2 g/dL (6.3-8.2)
[2022-03-29] MEDS: DEXAMETHASONE 10 MG/ML VIAL IV (07:45)
--- NOTE | 2022-03-29 11:10 | PC.NURSE ---
Recevied report on pt, pt resting in bed, NAD. Spilled water on self and gown changed. Remains on 2L O2 and 94%, RUC chest tube connected to LIS with minimal blood drainage in collection system, denies pain at this time, 450ml urine output. AAOx3. Paced rhythm and currently 73. RR even and unlaborted. Scheduled daily meds ordered. Dr Naranjo speaking with Neurosurgery at this time. Pt accepted and awaiting bed placement and transfer. Family in room at side without further questions.
[2022-03-29] MEDS: GLIMEPIRIDE 2 MG TABLET PO ×2 (12:27→20:20)
[2022-03-29] MEDS: lisinopriL 20 MG TABLET 40 MG PO (12:27)
[2022-03-29] MEDS: PANTOPRAZOLE DR 40 MG TABLET PO (12:28)
[2022-03-29] MEDS: METFORMIN HCL 500 MG TABLET 1000 MG PO ×2 (12:28→18:37)
[2022-03-29] MEDS: TAMSULOSIN 0.4 MG CAPSULE PO (12:28)
[2022-03-29] MEDS: MAGNESIUM OXIDE 400 MG TABLET PO ×2 (12:28→20:20)
[2022-03-29] MEDS: METOPROLOL IR 25 MG TABLET 12.5 MG PO ×2 (12:29→20:21)
[2022-03-29] MEDS: dexAMETHasone 4 MG TABLET PO ×2 (14:16→20:21)
[2022-03-29] MEDS: MORPHINE ER 15 MG TABLET PO (17:59)
[2022-03-29] MEDS: levoFLOXacin 750 MG/150 ML PIGGYBACK 100 MG IV (17:59)
--- NOTE | 2022-03-29 18:41 | PC.NURSE ---
Pt resting in bed appears comfortable. minimal changes throughout shift. urine output noted to be decreased however, pt is toleratin PO fluids well. Dr Flores made aware. Verbal Order for NS maintenance fluids as 200ml/hr after levaquin completed. Taking PO pills in pudding. Appears flushed and temp rechecked 97.5. Denies complaints, made aware of continued wait for admission bed at .
[2022-03-29] MEDS: SODIUM CHLORIDE 0.9% 1,000 ML 200 ML IV (19:38)
[2022-03-29] MEDS: ZONISAMIDE 100 MG CAPSULE 200 MG PO (20:20)
[2022-03-29] MEDS: SENNOSIDES 8.6 MG TABLET PO (20:22)
--- NOTE | 2022-03-29 21:15 | PC.NURSE ---
Report received - assumed care of pt at this time - daughter at bedside
--- NOTE | 2022-03-29 22:00 | PC.NURSE ---
Daughter remains at bedside - pt repositioned for comfort - gingerale given - chest tube in place - remains secured with dressing clean and intact - no leaks noted - pt alert and airway patent
--- NOTE | 2022-03-29 22:45 | PC.NURSE ---
Daughter continues to stay at bedside - no needs voiced - PWD with respirations equal and unlabored - taking sips of water - assisted by daughter - chest tube in place without concern
--- NOTE | 2022-03-29 23:30 | PC.NURSE ---
No changes in pt status at this time
[2022-03-30] VITALS (27 sets, daily range): BP systolic 124–160; BP diastolic 57–81; PULSE 61–75; RESP 20–32; TEMP 36.4; O2SAT 90–96
--- NOTE | 2022-03-30 00:15 | PC.NURSE ---
resting quietly in darkened room - no needs voiced - PWD with respirations equal and unlabored bilaterally
--- NOTE | 2022-03-30 01:00 | PC.NURSE ---
assisted to eat sherbert at this time - tolerated well - related that he is in a position of comfort
--- NOTE | 2022-03-30 01:45 | PC.NURSE ---
resting quietly in darkened room - chest tube remains intact without concerns - spoke with patient for awhile to assist with comfort and companionship - sips of water given
--- NOTE | 2022-03-30 02:30 | PC.NURSE ---
No changes in pt assessment
--- NOTE | 2022-03-30 03:15 | PC.NURSE ---
no changes in pt assessment
--- NOTE | 2022-03-30 04:00 | PC.NURSE ---
resting quietly in darkened room - eyes closed - no needs voiced - chest tube in place - no leaks or concerns
--- NOTE | 2022-03-30 04:30 | PC.NURSE ---
C/O pain - requesting medication at this time
[2022-03-30] MEDS: dexAMETHasone 4 MG TABLET PO ×2 (04:49→08:31)
[2022-03-30] MEDS: HYDROMORPHONE 0.5 MG INJ IV ×2 (04:50→12:30)
--- NOTE | 2022-03-30 04:50 | PC.NURSE ---
Medicated for pain at this time
--- NOTE | 2022-03-30 05:30 | PC.NURSE ---
resting quietly in NAD - no needs voiced - PWD with respirations equal and unlabored bilaterally
--- NOTE | 2022-03-30 06:15 | PC.NURSE ---
No changes in pt status
--- NOTE | 2022-03-30 07:10 | PC.NURSE ---
report to [facility] RN team - care relinquished at this time
[2022-03-30] MEDS: PANTOPRAZOLE DR 40 MG TABLET PO (08:23)
[2022-03-30] MEDS: MAGNESIUM OXIDE 400 MG TABLET PO (08:25)
[2022-03-30] MEDS: TAMSULOSIN 0.4 MG CAPSULE PO (08:26)
[2022-03-30] MEDS: MORPHINE ER 15 MG TABLET PO (08:26)
[2022-03-30] MEDS: GLIMEPIRIDE 2 MG TABLET PO (08:26)
[2022-03-30] MEDS: lisinopriL 20 MG TABLET 40 MG PO (08:27)
[2022-03-30] MEDS: METFORMIN HCL 500 MG TABLET 1000 MG PO (08:27)
[2022-03-30] MEDS: METOPROLOL IR 25 MG TABLET 12.5 MG PO (08:28)
--- NOTE | 2022-03-30 08:43 | DI.RAD.S_ITS ---
PROCEDURE: XR CHEST 1V INDICATIONS: R sided chest tube TECHNIQUE: One view of the chest was acquired. COMPARISON: [facility], CR, XR CHEST 1V, 03/29/2022, 0:26. [facility], CR, XR CHEST 1V, 03/29/2022, 1:26. FINDINGS: Surgical changes and devices: Pacemaker. Right Port-A-Cath is unchanged. Right chest tube is present overlying the right lower lobe. Lungs and pleura: There is blunting of the left costophrenic angle new compared to prior exam. There is questionable trace apical pneumothorax. Mediastinum: Mediastinal contours appear normal. Heart size is normal. Bones and chest wall: No suspicious bony lesions. Overlying soft tissues appear unremarkable. IMPRESSION: Right chest tube with questionable trace apical pneumothorax. Mild left effusion. Dictated by: Zoraida Gallagher M.D. on 03/30/2022 at 9:19 Approved by: Zoraida Gallagher M.D. on 03/30/2022 at 9:22
[2022-03-30] MEDS: SODIUM CHLORIDE 0.9% 1,000 ML 100 ML IV (09:18)
[2022-03-30 09:29] LABS: Add Manual Diff / Slide Review NO; Basophils Absolute Auto 0 /uL (0-100); Basophils Percent Auto 0.1 % (0-2); Eosinophils Absolute Auto 0 /uL (0-450); Hematocrit 31.4 % (41-53); Hemoglobin 10.9 g/dL (13.5-17.5); Lymphocytes Absolute Auto 400 /uL (1100-4500); Lymphocytes Percent Auto 4.2 % (25-40); Mean Corpuscular HGB Conc 34.8 % (30-36); Mean Corpuscular Hemoglobin 29.9 PG (26-34); Monocytes Absolute Auto 600 /uL (0-900); Monocytes Percent Auto 5.2 % (3-14); Neutrophils Absolute Auto 9500 /uL (1500-7000); Neutrophils Percent Auto 90.5 % (50-75); Platelet Count 283 X10^3/uL (150-400); Red Blood Cell Count 3.65 X10^6/uL (4.5-5.9); Red Cell Distribution Width 14.8 % (11.6-14.8); White Blood Cell Count 10.6 X10^3/uL (4.5-11.0)
[2022-03-30] MEDS: LIDOCAINE 2% (GLYDO) 6 ML GEL TOP (09:40)
[2022-03-30 09:42] LABS: BUN Creatinine Ratio 37.3 (6-22); Blood Urea Nitrogen 28 mg/dL (9-20); Calcium 8.1 mg/dL (8.4-10.2); Carbon Dioxide 25 mmol/L (22-32); Chloride 96 mmol/L (98-107); Estimated Glomerular Filt Rate > 60 mL/min (>60); Glucose 197 mg/dL (80-110); HEMOLYSIS < 15 (0-50); Potassium 4.2 mmol/L (3.4-5.1); Sodium 131 mmol/L (137-145)
--- NOTE | 2022-03-30 10:14 | PC.NURSE ---
[id number]: Received report on pt from DENISHA Rios. No changes throughout the night. Pt resting in bed NAD. RENAL CASE MANAGER in room helping pt with breakfast. AAOx3, HR 70's paced, chest tube intact without leaks. Pt reports pain level is comfortable. Noted to be 90% on 2L with adequate pleth and has not had CXR since chest tube placement confirmation. +B/L BS clear. Dr Aguilar made aware and orders for AM labs and repeat CXR obtained. AM meds given in pudding and tolerated well, SCD's applied for VTE prophylaxis, 600ml dark yellow urine output noted from overnight. IVF infusing. Cortez catheter changed and new urine culture sent. PT consult pending and pt made aware goals for today is OOB to chair and pt agreeable. Accepted at however waiting for bed placement.
--- NOTE | 2022-03-30 10:32 | PC.NURSE ---
Verbal order from Dr Aguilar to remove chest tube from [facility] for improved CXR. Completed. NAD. SPO2 94% on 2L.
[2022-03-30] MEDS: MAGNESIUM SULFATE 2 GM/50 ML PIGGYBACK IV (10:40)
--- NOTE | 2022-03-30 12:32 | PT-IP ANOTE ---
Received PT orders and reviewed the chart. ED reports pt is to be transferred to another facility imminently. Will complete PT orders.
--- NOTE | 2022-03-30 12:33 | PC.NURSE ---
Pt being transferred to [facility] and transfer of care to [facility] RN. Pt transferred with NS infusing at 100ml/hr
--- NOTE | 2022-03-30 12:37 | PC.NURSE ---
Patient was accepted to [facility] by Dr. Patricio Singh, Mary Alice harris RN gave OK to transfer to their ER for MRI scheduled at 1600. Call report to [phone]. [facility] ETA to [facility], [place] [id number].
--- NOTE | 2022-03-30 12:44 | PC.NURSE ---
Report given to ED composition floor layer.
== END 2022-03-30 12:48 | disposition short-term general hospital (02) ==
PROVIDERS: Emergency Medicine; Emergency Provider Emergency Medicine; Family Provider Internal Medicine; PCP Family Medicine
DX: J93.9 Pneumothorax, unspecified (principal); E83.42 Hypomagnesemia; R09.02 Hypoxemia; N39.0 Urinary tract infection, site not specified; C79.31 Secondary malignant neoplasm of brain; R07.81 Pleurodynia; R41.0 Disorientation, unspecified
CPT/HCPCS: 32551; 36415; 36600; 70450; 71045; 80048; 80053; 81001; 82550; 82553; 82805; 82962; 83605; 83735; 83880; 84145; 84484; 85025; 87040; 87077; 87086; 87186; 87633; 93005; 96361; 96365; 96366; 96368; 96375; 96376; 99151; 99152; 99285; 99291; J1100; J1170; J1940; J1956; J2704; J3475

== ENCOUNTER → 2022-06-15 13:54 | Outpatient (CLI) | payer MEDICARE, OTHER, SELFPAY ==
[2022-03-26 15:30] VITALS: BMI 25.9
[2022-06-15 19:15] LABS: Add Manual Diff / Slide Review NO; Basophils Absolute Auto 0 /uL (0-100); Basophils Percent Auto 0.7 % (0-2); Eosinophils Absolute Auto 100 /uL (0-450); Eosinophils Percent Auto 1.9 % (2-4); Hematocrit 34.8 % (41-53); Hemoglobin 11.6 g/dL (13.5-17.5); Lymphocytes Absolute Auto 1200 /uL (1100-4500); Mean Corpuscular HGB Conc 33.3 % (30-36); Mean Corpuscular Hemoglobin 30.1 PG (26-34); Mean Corpuscular Volume 90.4 fL (80-100); Monocytes Absolute Auto 700 /uL (0-900); Monocytes Percent Auto 11.9 % (3-14); Neutrophils Absolute Auto 4000 /uL (1500-7000); Neutrophils Percent Auto 65.5 % (50-75); Platelet Count 318 X10^3/uL (150-400); Red Blood Cell Count 3.85 X10^6/uL (4.5-5.9); White Blood Cell Count 6.1 X10^3/uL (4.5-11.0)
[2022-06-15 19:24] LABS: BUN Creatinine Ratio 13.8 (6-22); Blood Urea Nitrogen 9 mg/dL (9-20); Calcium 8.9 mg/dL (8.4-10.2); Carbon Dioxide 26 mmol/L (22-32); Chloride 96 mmol/L (98-107); Estimated Glomerular Filt Rate > 60 mL/min (>60); Glucose 196 mg/dL (80-110); HEMOLYSIS < 15 (0-50); Potassium 4.6 mmol/L (3.4-5.1); Sodium 132 mmol/L (137-145)
[2022-06-15 19:33] LABS: Hemoglobin A1C% w Est Avg Glu 6.2 % (4.0-6.0)
[2022-06-21 15:08] LABS: Zonisamide 7.5 ug/mL (10.0-40.0)
== END ==
PROVIDERS: Family Provider Internal Medicine; PCP Family Medicine; Visit Provider Family Medicine
DX: E11.9 Type 2 diabetes mellitus without complications (principal); E87.1 Hypo-osmolality and hyponatremia; D64.9 Anemia, unspecified; G40.909 Epilepsy, unspecified, not intractable, without status epilepticus
CPT/HCPCS: 80048; 80203; 83036; 85025